=== PATIENT | female | born 1990 | race Caucasian/White ===

== ENCOUNTER 2020-01-27 13:43 | Outpatient (REF) | payer OTHER, SELFPAY | END 2020-01-27 13:44 | disposition home or self-care (01) | LOC: HO.HMGCLDS 13:43 | PROVIDERS: PCP Internal Medicine; Visit Provider Internal Medicine | DX: Z20.828 Contact with and (suspected) exposure to other viral communicable diseases (principal) | CPT/HCPCS: 87635 ==

== ENCOUNTER 2020-02-17 10:53 | Outpatient (REF) | payer OTHER, SELFPAY | END 2020-02-17 10:54 | disposition home or self-care (01) | LOC: HO.LAB 10:53 | PROVIDERS: Visit Provider Internal Medicine | DX: Z20.828 Contact with and (suspected) exposure to other viral communicable diseases (principal) | CPT/HCPCS: 87635 ==

== ENCOUNTER 2020-02-24 08:31 | Outpatient (REF) | payer OTHER, SELFPAY | END 2020-02-24 08:32 | disposition home or self-care (01) | LOC: HO.LAB 08:31 | PROVIDERS: Visit Provider Internal Medicine | DX: Z20.828 Contact with and (suspected) exposure to other viral communicable diseases (principal) | CPT/HCPCS: U0003 ==

== ENCOUNTER 2020-03-12 15:59 | Outpatient (REF) | payer OTHER, SELFPAY | END 2020-03-12 16:00 | disposition home or self-care (01) | LOC: HO.LAB 15:59 | PROVIDERS: Visit Provider Internal Medicine | DX: Z20.828 Contact with and (suspected) exposure to other viral communicable diseases (principal) | CPT/HCPCS: C9803; U0003 ==

== ENCOUNTER 2020-04-05 08:43 | Outpatient (REF) | payer OTHER, SELFPAY | END 2020-04-05 08:44 | disposition home or self-care (01) | LOC: HO.LAB 08:43 | PROVIDERS: PCP Internal Medicine; Visit Provider Internal Medicine | DX: Z20.828 Contact with and (suspected) exposure to other viral communicable diseases (principal) | CPT/HCPCS: C9803; U0003 ==

== ENCOUNTER 2020-04-15 10:48 | Outpatient (REF) | payer OTHER, SELFPAY ==
--- NOTE | 2020-04-15 10:53 | XR_ITS ---
EXAMINATION: XR FOOT, RIGHT CLINICAL INFORMATION: M79.671 - Pain in right foot COMPARISON: None TECHNIQUE: AP, lateral, and oblique views of the right foot. FINDINGS: There are postsurgical changes first metatarsal status post osteotomy and 2 screws. Hardware intact. No osteolysis or periostitis. There is no acute or healing fracture or dislocation. No joint narrowing or erosive change. XR/XR foot RT min 3V IMPRESSION: Postsurgical changes first metatarsal. No acute or healing fracture or destructive process. No arthropathy.
== END 2020-04-15 10:49 | disposition home or self-care (01) ==
LOC: HO.HMGCX 10:48
PROVIDERS: PCP Internal Medicine; Visit Provider Nurse Practitioner Family
DX: M79.671 Pain in right foot (principal)
CPT/HCPCS: 73630

== ENCOUNTER 2020-08-27 13:53 | Outpatient (REF) | payer OTHER, SELFPAY ==
[2020-08-27 17:10] LABS: MANUAL DIFF FLAG NO
[2020-08-27 17:16] LABS: Basophils Absolute Auto 0.1 X10*3/uL (0.0-0.2); Basophils Percent Auto 0.5 % (0-2); Eosinophils Absolute Auto 0.2 X10*3/uL (0.0-0.4); Eosinophils Percent Auto 1.6 % (0-4); Hematocrit 30.5 % (37-47); Hemoglobin 9.3 g/dl (12.0-16.0); Imm Gran Abs Auto 0.02 X10*3/uL (0.00-0.03); Imm Gran Pct Auto 0.2 % (0.0-0.4); Lymphocytes Absolute Auto 2.3 X10*3/uL (1.2-4.9); Lymphocytes Percent Auto 24.5 % (20-40); Mean Corpuscular HGB Conc 30.5 g/dl (31.0-35.0); Mean Corpuscular Hemoglobin 23.2 pg (27.0-33.0); Mean Corpuscular Volume 76.1 fL (80-98); Mean Platelet Volume 11.2 fL (9.4-12.3); Monocytes Absolute Auto 0.4 X10*3/uL (0.1-1.2); Monocytes Percent Auto 4.1 % (2-11); Neutrophils Absolute Auto 6.3 X10*3/uL (2.0-8.3); Neutrophils Percent Auto 69.1 % (45-73); Platelet Count 424 X10*3/uL (160-400); Red Blood Count 4.01 X10*6/uL (4.20-5.50); Red Cell Distribution Width 14.3 % (11.0-16.0); White Blood Count 9.2 X10*3/uL (4.8-10.8)
[2020-08-27 17:50] LABS: Vitamin D 25-OH Total 8.2 ng/mL (>30)
[2020-08-27 18:08] LABS: Folate 13.1 ng/mL (> or = 4.0); Vitamin B12 178 pg/mL (200-900)
== END 2020-08-27 13:54 | disposition home or self-care (01) ==
LOC: HO.HMGCLDS 13:53
PROVIDERS: PCP Internal Medicine; Visit Provider Internal Medicine
DX: E55.9 Vitamin D deficiency, unspecified (principal); Z86.2 Personal history of diseases of the blood and blood-forming organs and certain disorders involving the immune mechanism; Z86.39 Personal history of other endocrine, nutritional and metabolic disease
CPT/HCPCS: 36415; 82306; 82607; 82746; 85025

== ENCOUNTER 2021-01-04 08:34 | Outpatient (REF) | payer OTHER, SELFPAY ==
[2021-01-04 11:23] LABS: MANUAL DIFF FLAG NO
[2021-01-04 11:33] LABS: Basophils Percent Auto 0.5 % (0-2); Eosinophils Absolute Auto 0.3 X10*3/uL (0.0-0.4); Eosinophils Percent Auto 4.1 % (0-4); Hematocrit 32.7 % (37-47); Hemoglobin 10.4 g/dl (12.0-16.0); Imm Gran Abs Auto 0.02 X10*3/uL (0.00-0.03); Imm Gran Pct Auto 0.3 % (0.0-0.4); Lymphocytes Absolute Auto 1.9 X10*3/uL (1.2-4.9); Lymphocytes Percent Auto 28.5 % (20-40); Mean Corpuscular HGB Conc 31.8 g/dl (31.0-35.0); Mean Corpuscular Hemoglobin 25.1 pg (27.0-33.0); Mean Platelet Volume 11.2 fL (9.4-12.3); Monocytes Absolute Auto 0.5 X10*3/uL (0.1-1.2); Monocytes Percent Auto 7.3 % (2-11); Neutrophils Absolute Auto 3.9 X10*3/uL (2.0-8.3); Neutrophils Percent Auto 59.3 % (45-73); Platelet Count 356 X10*3/uL (160-400); Red Blood Count 4.14 X10*6/uL (4.20-5.50); Red Cell Distribution Width 14.3 % (11.0-16.0); White Blood Count 6.6 X10*3/uL (4.8-10.8)
[2021-01-04 11:56] LABS: Alanine Aminotransferase 12 U/L (0-31); Anion Gap 11 (12-20); Aspartate Amino Transferase 20 U/L (5-31); Blood Urea Nitrogen 13 mg/dL (9-16); Calcium 9.2 mg/dL (8.4-10.2); Carbon Dioxide 21 mmol/L (22-29); Chloride 110 mmol/L (96-108); Cholesterol 215 mg/dL; Estimated Glomerular Filt Rate > 60; Glucose Fasting 84 mg/dL (60-99); HDL Cholesterol 68 mg/dL; Iron 34 mcg/dL (30-160); LDL Cholesterol Calculated 121 mg/dl; Percent Iron Saturation 7 % (15-50); Potassium 4.4 mmol/L (3.3-5.1); Sodium 138 mmol/L (135-145); Total Iron Binding Capacity 476 mcg/dL (228-428); Triglycerides 133 mg/dL; Unsaturated Iron Binding 442 ug/dL
[2021-01-04 12:11] LABS: Folate 9.7 ng/mL (> or = 4.0); Vitamin B12 206 pg/mL (200-900)
[2021-01-04 12:20] LABS: TSH reflex Free T4 1.65 uIU/mL (0.32-4.0); Vitamin D 25-OH Total 52.7 ng/mL (>30)
== END 2021-01-04 08:35 | disposition home or self-care (01) ==
LOC: HO.HMGCLDS 08:34
PROVIDERS: PCP Internal Medicine; Visit Provider Internal Medicine
DX: Z00.00 Encounter for general adult medical examination without abnormal findings (principal); E55.9 Vitamin D deficiency, unspecified; D51.8 Other vitamin B12 deficiency anemias; D50.9 Iron deficiency anemia, unspecified; I10 Essential (primary) hypertension
CPT/HCPCS: 36415; 80048; 80061; 82306; 82607; 82746; 83540; 84443; 84450; 84460; 85025

== ENCOUNTER 2021-01-17 11:46 | Outpatient (REF) | payer OTHER, SELFPAY ==
--- NOTE | ~2021-01-17 | XR_ITS ---
EXAMINATION: XR CERVICAL SPINE CLINICAL INFORMATION: M54.2 - Cervicalgia COMPARISON: Radiographs cervical spine 11/26/2013. TECHNIQUE: 3 views of the cervical spine were obtained. FINDINGS: There is straightening of the cervical lordosis similar to remote prior exam 2013. Interval degenerative disc changes are present at C5-C6 with mild disc narrowing and associated anterior and posterior vertebral spurring. There is no endplate sclerosis or erosive change. No perched facet. No vertebral compression, spondylolisthesis, or prevertebral soft tissue swelling. The odontoid appears intact. XR/XR cervical spine 3V IMPRESSION: Degenerative disc changes C5-C6 with associated anterior and posterior vertebral body spurring.
== END 2021-01-17 11:47 | disposition home or self-care (01) ==
LOC: HO.HMGCX 11:46
PROVIDERS: PCP Internal Medicine; Visit Provider Physician Assistant Medical
DX: Z13.89 Encounter for screening for other disorder (principal)
CPT/HCPCS: 72040

== ENCOUNTER 2021-05-02 14:32 | Outpatient (REF) | payer OTHER, SELFPAY ==
--- NOTE | ~2021-05-02 | XR_ITS ---
EXAMINATION: XR CHEST CLINICAL INFORMATION: Cough COMPARISON: None TECHNIQUE: 2 views of the chest were obtained. FINDINGS: No significant abnormality is noted involving the heart, lungs, mediastinum, bony thorax or soft tissues. XR/XR chest 2V IMPRESSION: Unremarkable examination.
[2021-05-02 16:10] LABS: MANUAL DIFF FLAG NO
[2021-05-02 16:23] LABS: Basophils Absolute Auto 0.1 X10*3/uL (0.0-0.2); Basophils Percent Auto 0.6 % (0-2); Eosinophils Absolute Auto 0.3 X10*3/uL (0.0-0.4); Eosinophils Percent Auto 3.1 % (0-4); Hematocrit 35.3 % (37.0-47.0); Hemoglobin 10.8 g/dl (12.0-16.0); Imm Gran Abs Auto 0.02 X10*3/uL (0.00-0.03); Imm Gran Pct Auto 0.2 % (0.0-0.4); Lymphocytes Percent Auto 32.2 % (20-40); Mean Corpuscular HGB Conc 30.6 g/dl (31.0-35.0); Mean Corpuscular Hemoglobin 24.2 pg (27.0-33.0); Mean Corpuscular Volume 79.1 fL (80.0-98.0); Mean Platelet Volume 11.3 fL (9.4-12.3); Monocytes Absolute Auto 0.5 X10*3/uL (0.1-1.2); Monocytes Percent Auto 5.1 % (2-11); Neutrophils Absolute Auto 5.5 x10*3/uL (2.0-8.3); Neutrophils Percent Auto 58.8 % (45-73); Platelet Count 406 X10*3/uL (160-400); Red Blood Count 4.46 X10*6/uL (4.20-5.50); Red Cell Distribution Width 15.2 % (11.0-16.0); White Blood Count 9.4 X10*3/uL (4.8-10.8)
== END 2021-05-02 14:33 | disposition home or self-care (01) ==
LOC: HO.HMGCX 14:32
PROVIDERS: PCP Internal Medicine; Visit Provider Internal Medicine
DX: R05.9 Cough, unspecified (principal); R06.02 Shortness of breath; Z86.16 Personal history of COVID-19
CPT/HCPCS: 36415; 71046; 85025

== ENCOUNTER 2021-05-06 14:48 | Outpatient (REF) | payer OTHER, SELFPAY ==
[2021-05-06 15:38] LABS: Binax Now Covid-19 Ag Negative (Negative)
[2021-05-06 15:39] LABS: Binax Internal Control QC Valid; Binax Lot number: 9864
== END 2021-05-06 14:49 | disposition home or self-care (01) ==
LOC: HO.LAB 14:48
PROVIDERS: Visit Provider Internal Medicine
DX: Z20.822 Contact with and (suspected) exposure to COVID-19 (principal)
CPT/HCPCS: C9803

== ENCOUNTER 2021-08-19 12:22 | Outpatient (REF) | payer OTHER, SELFPAY ==
[2021-08-19 13:38] LABS: MANUAL DIFF FLAG NO
[2021-08-19 13:44] LABS: Basophils Absolute Auto 0.1 X10*3/uL (0.0-0.2); Basophils Percent Auto 0.7 % (0-2); Eosinophils Absolute Auto 0.2 X10*3/uL (0.0-0.4); Eosinophils Percent Auto 2.7 % (0-4); Hematocrit 34.1 % (37.0-47.0); Hemoglobin 10.7 g/dl (12.0-16.0); Imm Gran Abs Auto 0.02 X10*3/uL (0.00-0.03); Imm Gran Pct Auto 0.3 % (0.0-0.4); Lymphocytes Absolute Auto 2.5 X10*3/uL (1.2-4.9); Mean Corpuscular HGB Conc 31.4 g/dl (31.0-35.0); Mean Corpuscular Hemoglobin 23.9 pg (27.0-33.0); Mean Corpuscular Volume 76.3 fL (80.0-98.0); Mean Platelet Volume 11.2 fL (9.4-12.3); Monocytes Absolute Auto 0.5 X10*3/uL (0.1-1.2); Monocytes Percent Auto 6.4 % (2-11); Neutrophils Absolute Auto 3.9 x10*3/uL (2.0-8.3); Neutrophils Percent Auto 54.9 % (45-73); Platelet Count 421 X10*3/uL (160-400); Red Blood Count 4.47 X10*6/uL (4.20-5.50); Red Cell Distribution Width 14.5 % (11.0-16.0); White Blood Count 7.1 X10*3/uL (4.8-10.8)
[2021-08-19 14:18] LABS: Iron 71 mcg/dL (30-160); Percent Iron Saturation 14 % (15-50); Total Iron Binding Capacity 518 mcg/dL (228-428); Unsaturated Iron Binding 447 ug/dL
[2021-08-19 14:39] LABS: Folate 14.3 ng/mL (> or = 4.0); Vitamin B12 219 pg/mL (200-900)
== END 2021-08-19 12:23 | disposition home or self-care (01) ==
LOC: HO.HMGCLDS 12:22
PROVIDERS: PCP Internal Medicine; Visit Provider Internal Medicine
DX: D50.9 Iron deficiency anemia, unspecified (principal); D51.8 Other vitamin B12 deficiency anemias; E55.9 Vitamin D deficiency, unspecified
CPT/HCPCS: 36415; 82306; 82607; 82746; 83540; 85025

== ENCOUNTER 2021-08-19 14:06 | Outpatient (REF) | payer OTHER, SELFPAY ==
[2021-08-19 14:45] LABS: COVID-19 Test Negative (Negative)
== END 2021-08-19 14:07 | disposition home or self-care (01) ==
LOC: HO.LAB 14:06
PROVIDERS: Visit Provider Internal Medicine
DX: Z20.822 Contact with and (suspected) exposure to COVID-19 (principal)
CPT/HCPCS: 87635; C9803

== ENCOUNTER 2021-11-15 10:04 | Outpatient (REF) | payer OTHER, SELFPAY ==
[2021-11-15 10:44] LABS: Binax Internal Control QC Valid; Binax Now Covid-19 Ag Negative (Negative)
== END 2021-11-15 10:05 | disposition home or self-care (01) ==
LOC: HO.HMGCLDS 10:04
PROVIDERS: Visit Provider Physician Assistant
DX: Z20.822 Contact with and (suspected) exposure to COVID-19 (principal); B34.9 Viral infection, unspecified
CPT/HCPCS: 87811; C9803

== ENCOUNTER 2021-11-30 10:14 | Outpatient (REF) | payer OTHER, SELFPAY ==
[2021-11-30 10:58] LABS: COVID-19 Test Negative (Negative)
== END 2021-11-30 10:15 | disposition home or self-care (01) ==
LOC: HO.LAB 10:14
PROVIDERS: Visit Provider Internal Medicine
DX: Z20.822 Contact with and (suspected) exposure to COVID-19 (principal)
CPT/HCPCS: 87635; C9803

== ENCOUNTER 2021-12-02 11:37 | Outpatient (REF) | payer OTHER, SELFPAY ==
[2021-12-02 12:29] LABS: COVID-19 Test Negative (Negative)
== END 2021-12-02 11:38 | disposition home or self-care (01) ==
LOC: HO.LAB 11:37
PROVIDERS: Visit Provider Internal Medicine
DX: Z20.822 Contact with and (suspected) exposure to COVID-19 (principal)
CPT/HCPCS: 87635; C9803

== ENCOUNTER 2022-02-09 13:36 | Outpatient (REF) | payer OTHER, SELFPAY ==
--- NOTE | ~2022-02-09 | XR_ITS ---
EXAMINATION: XR SHOULDER, RIGHT CLINICAL INFORMATION: Right shoulder pain. COMPARISON: None TECHNIQUE: AP external rotation, Grashey, scapular Y, and axillary views of the right shoulder. FINDINGS: The bones and soft tissues are normal. No fracture. Glenohumeral and acromioclavicular alignment is anatomic with normal joint space. No abnormal soft tissue calcifications. XR/XR shoulder RT min 2V IMPRESSION: Unremarkable right shoulder.
== END 2022-02-09 13:37 | disposition home or self-care (01) ==
LOC: HO.HMGCX 13:36
PROVIDERS: PCP Internal Medicine
DX: M25.511 Pain in right shoulder (principal)
CPT/HCPCS: 73030

== ENCOUNTER → 2022-03-21 08:58 | Outpatient (BNVA) | payer OTHER, SELFPAY | PROVIDERS: PCP Internal Medicine; Visit Provider Physician Assistant | DX: M75.101 Unspecified rotator cuff tear or rupture of right shoulder, not specified as traumatic (principal) | CPT/HCPCS: 20610; 99202; J1040 ==

== ENCOUNTER 2022-04-05 15:26 | Outpatient (REF) | payer OTHER, SELFPAY ==
[2022-04-05 15:52] LABS: Binax Internal Control QC Valid; Binax Now Covid-19 Ag Negative (Negative)
[2022-04-05 17:54] LABS: Influenza A PCR POSITIVE (Negative); Influenza B PCR NEGATIVE (Negative); Resp Syncy Virus RNA Qual PCR NEGATIVE (Negative); SARS COV2 PCR INHOUSE NEGATIVE (Negative)
== END 2022-04-05 15:27 | disposition home or self-care (01) ==
LOC: HO.HMGCLDS 15:26
PROVIDERS: PCP Internal Medicine; Visit Provider Physician Assistant
DX: Z20.822 Contact with and (suspected) exposure to COVID-19 (principal)
CPT/HCPCS: 0241U; 87811; C9803

== ENCOUNTER 2022-07-11 08:56 | Outpatient (REF) | payer OTHER, SELFPAY ==
[2022-07-11 11:44] LABS: MANUAL DIFF FLAG NO
[2022-07-11 11:56] LABS: Basophils Percent Auto 0.5 % (0-2); Eosinophils Absolute Auto 0.1 X10*3/uL (0.0-0.4); Eosinophils Percent Auto 2.1 % (0-4); Hematocrit 32.4 % (37.0-47.0); Hemoglobin 9.7 g/dl (12.0-16.0); Imm Gran Abs Auto 0.02 X10*3/uL (0.00-0.03); Imm Gran Pct Auto 0.3 % (0.0-0.4); Lymphocytes Percent Auto 29.8 % (20-40); Mean Corpuscular HGB Conc 29.9 g/dl (31.0-35.0); Mean Corpuscular Hemoglobin 22.5 pg (27.0-33.0); Mean Platelet Volume 10.8 fL (9.4-12.3); Monocytes Absolute Auto 0.4 X10*3/uL (0.1-1.2); Monocytes Percent Auto 5.7 % (2-11); Neutrophils Absolute Auto 4.1 x10*3/uL (2.0-8.3); Neutrophils Percent Auto 61.6 % (45-73); Platelet Count 466 X10*3/uL (160-400); Red Blood Count 4.32 X10*6/uL (4.20-5.50); Red Cell Distribution Width 14.6 % (11.0-16.0); White Blood Count 6.6 X10*3/uL (4.8-10.8)
[2022-07-11 12:13] LABS: Cholesterol 198 mg/dL; Glucose Fasting 83 mg/dL (60-99); HDL Cholesterol 68 mg/dL; Iron 28 mcg/dL (30-160); LDL Cholesterol Calculated 103 mg/dl; Percent Iron Saturation 7 % (15-50); Total Iron Binding Capacity 423 mcg/dL (228-428); Triglycerides 135 mg/dL; Unsaturated Iron Binding 395 ug/dL
[2022-07-11 12:53] LABS: Folate 8.2 ng/mL (> or = 4.0); Vitamin B12 227 pg/mL (200-900); Vitamin D 25-OH Total 20.8 ng/mL (>30)
== END 2022-07-11 08:57 | disposition home or self-care (01) ==
LOC: HO.HMGCLDS 08:56
PROVIDERS: PCP Internal Medicine; Visit Provider Internal Medicine
DX: Z00.01 Encounter for general adult medical examination with abnormal findings (principal); D50.9 Iron deficiency anemia, unspecified; D51.8 Other vitamin B12 deficiency anemias; E55.9 Vitamin D deficiency, unspecified
CPT/HCPCS: 36415; 80061; 82306; 82607; 82746; 82947; 83540; 85025

== ENCOUNTER 2023-01-18 10:01 | Outpatient (AMB) | payer OTHER, SELFPAY ==
--- NOTE | 2023-01-18 10:28 | AM.OFFWIN_ITS ---
Intake Vital Signs 01/18/23 10:33 Weight 158 lb BP 122/70 Blood Pressure Location Rt brachial Position Sitting Pulse 80 Pulse Source Pulse Oximeter Temp 98.3 F Temp Source Temporal Artery Scan Pulse Oximetry (%) 99 Oxygen Delivery Method Room Air Intake Visit Reasons: EST/SOB Intake Note: Patient here for sore throat, cough and SOB/wheezing which has been present for 2 days, has a hx of asthma. she would also like a refill on her inhaler. Patient Tobacco Use Status: Never used Tobacco Allergies Seasonal Allergies Allergy (Intermediate, Verified 01/18/23 10:34) rhinorrhea Do you need a note to return to daycare/school/sports/work: Yes HPI HPI Comments History of Present Illness Details 32 yo female who presents for wheezing a nd shortness of breath. Patient states that for the past several days experiencing wheezing shortness of breath and productive cough. Denies fevers or chills. [facility] Medical History (Updated 01/18/23 @ 10:45 by SHAN Garza) SOB (shortness of breath) Annual visit for general adult medical examination with abnormal findings History of COVID-19 Migraine Allergic rhinitis due to allergen Environmental allergies Vitamin B12 deficiency (dietary) anemia Iron deficiency anemia Vitamin D deficiency Surgical History History of bunionectomy of right great toe Family History Paternal Grandmother Diabetes mellitus Social History Housing: Apartment Alcohol intake: never Patient Tobacco Use Status: Never used Tobacco e-Cigarette/Vaping Use: Never Used Second Hand Smoke Exposure: No service: No Current occupational status: employed Cognitive needs: No Hearing needs: No Vision needs: No Review of Systems Const All systems reviewed & are unremarkable except as noted in HPI and below Card Reports dyspnea Resp Reports change in phlegm color, Reports chest congestion, Reports cough and Reports dyspnea Physical Exam Vital Signs: Last Vital Signs Temp 98.3 F 01/18/23 10:33 Pulse 80 01/18/23 10:33 BP 122/70 01/18/23 10:33 Pulse Ox 99 01/18/23 10:33 Oxygen Delivery Method Room Air 09/28/23 10:33 Const General: cooperative, no acute distress and alert Orientation/consciousness: patient oriented x3 Limitations: no limitations HEENT Head: Yes normal to inspection Ears: hearing grossly normal bilaterally and external ears normal General nose exam: Normal external nose present Eyes General: appearance normal, both eyes and all related structures Neck Neck: Yes normal visual inspection Chest Chest palpation & inspection: normal inspection of the chest Resp Other: Rhonchi left lower base Effort & Inspection: normal respiratory effort, able to speak in complete sentences and no audible wheezes Cardio Rate: regular rate Rhythm: regular rhythm GI Inspection: Yes normal to inspection Palpation (GI): Soft to palpation and nontender Skin General skin exam: no rashes or lesions noted Neuro General: patient oriented x3 Psych Appearance: grossly normal Mental Status: mental status grossly normal Speech and movement: Normal speech and movement present Affect: normal affect Attitude: cooperative Thought process: Normal thought process present Thought content: Normal thought content present Assessment & Plan Assessment & Plan (1) Bronchitis: Code(s): J40 - Bronchitis, not specified as acute or chronic Plan: VSs. Exam notable for rhonchi in left lung base. Symptoms consistent bronchitis will prescribe a beautiful prednisone. Will also should chest x-ray to rule out pneumonia as well as COVID test. Chest x-ray shows no acute abnormalities cover test negative Discharge instructions, follow up and treatment are discussed with patient in my usual fashion. Alternatives in treatment are also discussed. The patient will return for worsening symptoms or as needed. Advised that any labs/imaging ordered will be followed up on and contact made if further treatment needed. Counseled that patient's condition may require further evaluation and/or treatment. Symptoms of concern for worsening disorder discussed in detail in my customary manner. Patient does verbalize understanding of the plan, there are no apparent barriers to communication. The patient is given the opportunity to ask questions and have them answered to his/her satisfaction Orders: Orders [facility] Covid-19 Ag Today R06.02 - Shortness of breath XR chest 2V Today R06.02 - Shortness of breath Medications: New albuterol sulfate 90 mcg/actuation 2 puffs inhalation Q6H PRN 6.7 grams 0RF shortness of breath or wheezing prednisone 40 mg (2 x 20 mg) PO DAILY 5 days 10 tabs 0RF Coding Level of Care Code Est Pt Level 3 (21117) Diagnoses Bronchitis J40
[2023-01-18 10:33] VITALS: BP 122/70; PULSE 80; TEMP 36.8; O2SAT 99
== END 2023-01-18 10:53 | disposition home or self-care (01) ==
PROVIDERS: PCP Internal Medicine; Visit Provider Physician Assistant
DX: J40 Bronchitis, not specified as acute or chronic (principal)
CPT/HCPCS: 99213

== ENCOUNTER 2023-01-18 10:52 | Outpatient (REF) | payer OTHER, SELFPAY ==
--- NOTE | ~2023-01-18 | XR_ITS ---
EXAMINATION: XR CHEST CLINICAL INFORMATION: Shortness of breath COMPARISON: 05/02/2021 TECHNIQUE: 2 views of the chest were obtained. FINDINGS: No acute finding. Some right basilar markings are noted not felt to be increased. Likely chronic. The cardiac silhouette is within normal limits. The hilar regions do not appear pathologically enlarged There is no effusion. Scoliosis once again noted convex left apex at T6. XR/XR chest 2V IMPRESSION: No acute finding.
[2023-01-18 11:23] LABS: Binax Now Covid-19 Ag Negative (Negative); Binax Performed by: HO.BONILM
[2023-01-18 11:24] LABS: Binax Internal Control QC Valid
== END 2023-01-18 10:53 | disposition home or self-care (01) ==
LOC: HO.HMGCX 10:52
PROVIDERS: PCP Physician Assistant; Visit Provider Physician Assistant
DX: Z20.822 Contact with and (suspected) exposure to COVID-19 (principal); R06.02 Shortness of breath
CPT/HCPCS: 71046; 87811; C9803

== ENCOUNTER 2023-01-29 13:14 | Outpatient (AMB) | payer OTHER, SELFPAY ==
--- NOTE | 2023-01-29 14:43 | MHC.OFFWIV ---
Intake Vital Signs 01/29/23 14:45 Height 5 ft 2 in Weight 158 lb BMI 28.9 BP 128/76 Blood Pressure Location Lt brachial Position Sitting Pulse 83 Pulse Source Pulse Oximeter Pulse Oximetry (%) 100 Oxygen Delivery Method Room Air Intake Visit Reasons: EST/pink eye/[phone] Intake Note: Patient here for possible pink eye. Patient Tobacco Use Status: Never used Tobacco Allergies Seasonal Allergies Allergy (Intermediate, Verified 01/29/23 15:23) rhinorrhea Medication List - Last Reconciled 01/29/23 by Shan Knox MD albuterol sulfate 90 mcg/actuation 2 puffs inhalation Q6H PRN albuterol sulfate 90 mcg/actuation (Ventolin HFA) 2 puffs inhalation Q6H PRN erythromycin 0.5 inches ophthalmic (eye) TID naproxen 250 mg PO BID PRN prednisone 40 mg (2 x 20 mg) PO DAILY 5 days HPI EST/pink eye/[phone] HPI Details 32-year-old female presents to the office for a sick visit. Patient complains of redness in her eye since this morning. Does not wear contact lenses. Reports symptoms of itching and tearing. [facility] Medical History (Updated 01/18/23 @ 10:45 by SHAN Garza) SOB (shortness of breath) Annual visit for general adult medical examination with abnormal findings History of COVID-19 Migraine Allergic rhinitis due to allergen Environmental allergies Vitamin B12 deficiency (dietary) anemia Iron deficiency anemia Vitamin D deficiency Surgical History History of bunionectomy of right great toe Family History Paternal Grandmother Diabetes mellitus Social History Housing: Apartment Alcohol intake: never Patient Tobacco Use Status: Never used Tobacco e-Cigarette/Vaping Use: Never Used Second Hand Smoke Exposure: No service: No Current occupational status: employed Cognitive needs: No Hearing needs: No Vision needs: No Physical Exam Vital Signs: Last Vital Signs Pulse 83 01/29/23 14:45 BP 128/76 01/29/23 14:45 Pulse Ox 100 01/29/23 14:45 Oxygen Delivery Method Room Air 10/09/23 14:45 BMI result Body Mass Index 28.9 Eyes Other: Left eye: Bulbar conjunctiva is congested. Corneas clear. Anterior chambers clear. Assessment & Plan Assessment & Plan (1) Conjunctivitis: Code(s): H10.9 - Unspecified conjunctivitis Qualifiers: Conjunctivitis type: acute Acute conjunctivitis type: bacterial Laterality: left Qualified Code(s): H10.32 - Unspecified acute conjunctivitis, left eye Plan: Erythromycin ointment called in. If symptoms do not improve to follow-up here. Medications: New erythromycin 0.5 inches ophthalmic (eye) TID 1 g 0RF Coding Level of Care Code Est Pt Level 3 (29001) Diagnoses Acute bacterial conjunctivitis of left eye H10.32 Conjunctivitis type: acute Acute conjunctivitis type: bacterial Laterality: left
[2023-01-29 14:45] VITALS: BP 128/76; PULSE 83; O2SAT 100; BMI 28.9
== END 2023-01-29 15:59 | disposition home or self-care (01) ==
PROVIDERS: PCP Internal Medicine; Visit Provider Internal Medicine
DX: H10.32 Unspecified acute conjunctivitis, left eye (principal)
CPT/HCPCS: 99213

== ENCOUNTER 2023-12-06 10:29 | Outpatient (AMB) | payer OTHER, SELFPAY ==
--- NOTE | 2023-12-06 10:31 | AM.OFFWIN_ITS ---
Intake Vital Signs 12/06/23 10:32 Height 5 ft 2 in Weight 154 lb BMI 28.2 BP 122/76 Blood Pressure Location Rt brachial Position Sitting Pulse 77 Pulse Source Pulse Oximeter Pulse Oximetry (%) 98 Oxygen Delivery Method Room Air Intake Visit Reasons: EP- LT eye redness, oozing out of eye, pink eye? Intake Note: Patient here for possible pink eye of left eye. she states it just started today and has discharge and feels sore. Patient Tobacco Use Status: Never used Tobacco Allergies Seasonal Allergies Allergy (Intermediate, Verified 12/06/23 10:33) rhinorrhea Do you need a note to return to daycare/school/sports/work: No HPI EP- LT eye redness, oozing out of eye, pink eye? HPI Details This note is constructed using voice recognition software. While every effort has been made to ensure accuracy, professional development instructor errors may have been included. The patient is a 33 year old female who presents to the clinic today with left eye since this morning. She notes that the left eye she woke up with was itchy, with yellow thick discharge. She has clean the eye. The discharge seems to come back. She has had no known exposures to anybody with conjunctivitis. She does have children. She is not a contact wearer. She denies fever, chills, cough, shortness of breath. [facility] Medical History (Updated 01/18/23 @ 10:45 by SHAN Garza) SOB (shortness of breath) Annual visit for general adult medical examination with abnormal findings History of COVID-19 Migraine Allergic rhinitis due to allergen Environmental allergies Vitamin B12 deficiency (dietary) anemia Iron deficiency anemia Vitamin D deficiency Surgical History History of bunionectomy of right great toe Family History Paternal Grandmother Diabetes mellitus Social History Housing: Apartment Alcohol intake: never Patient Tobacco Use Status: Never used Tobacco e-Cigarette/Vaping Use: Never Used Second Hand Smoke Exposure: No service: No Current occupational status: employed Cognitive needs: No Hearing needs: No Vision needs: No Review of Systems Const All systems reviewed & are unremarkable except as noted in HPI and below Physical Exam Vital Signs: Last Vital Signs Pulse 77 12/06/23 10:32 BP 122/76 12/06/23 10:32 Pulse Ox 98 12/06/23 10:32 Oxygen Delivery Method Room Air 12/06/23 10:32 BMI result Body Mass Index 28.2 Const General: cooperative, healthy appearing, comfortable, no acute distress and alert Orientation/consciousness: patient oriented x3 Limitations: no limitations HEENT Head: Yes normal to inspection and Yes normocephalic Ears: hearing grossly normal bilaterally General nose exam: Normal external nose present Face and sinus: Yes normal facial exam and Yes sinuses nontender Mouth: Normal oral and palatal mucosa present and tongue normal Teeth and gingiva: dentition normal Throat: Yes posterior oropharynx normal Eyes Visual Sellers: normal visual sellers by confrontation Alignment and Position: alignment normal Periorbital: periorbital findings normal Eyelids: Yes eyelids normal Conjunctivae: conjunctival abnormal left conjunctival injection diffuse and discharge purulent Pupils: Equal, round and reactive pupils present Skin General skin exam: no rashes or lesions noted, elasticity normal and turgor normal Neuro General: patient oriented x3 Cranial nerves: Yes Equal, round and reactive pupils present Psych Appearance: grossly normal Mental Status: mental status grossly normal Speech and movement: Normal speech and movement present Affect: normal affect Assessment & Plan Assessment & Plan (1) Conjunctivitis: Code(s): H10.9 - Unspecified conjunctivitis Qualifiers: Conjunctivitis type: acute Acute conjunctivitis type: bacterial Laterality: left Qualified Code(s): H10.32 - Unspecified acute conjunctivitis, left eye Plan: ERythromycin ointment ordered. Advised patient to avoid scratching both eyes as she can cross contaminate to her other eye. Advised patient to monitor her children for signs of conjunctivitis as it is entirely likely that they may catch it. Advised patient to remain out of work for today while she initiates treatment for this. Follow up as needed with worsening or failure to resolve. Advised Ophthalmology should she have any issues with vision develop. Plan See above for full details and plan. Medications: New erythromycin apply inside left eye lid 0.5 inches ophthalmic (eye) TID 7 days 3.5 grams 0RF Coding Level of Care Code Est Pt Level 3 (99493) Diagnoses Acute bacterial conjunctivitis of left eye H10.32 Conjunctivitis type: acute Acute conjunctivitis type: bacterial Laterality: left
[2023-12-06 10:32] VITALS: BP 122/76; PULSE 77; O2SAT 98; BMI 28.2
== END 2023-12-06 10:50 | disposition home or self-care (01) ==
PROVIDERS: PCP Internal Medicine; Visit Provider Registered Nurse
DX: H10.32 Unspecified acute conjunctivitis, left eye (principal)
CPT/HCPCS: 99213

== ENCOUNTER 2024-03-26 08:53 | Outpatient (REF) | payer OTHER, SELFPAY ==
[2024-03-26 09:06] LABS: MANUAL DIFF FLAG NO
[2024-03-26 10:50] LABS: Basophils Absolute Auto 0.1 X10*3/uL (0.0-0.2); Basophils Percent Auto 0.7 % (0-2); Eosinophils Absolute Auto 0.2 X10*3/uL (0.0-0.4); Eosinophils Percent Auto 2.2 % (0-4); Hematocrit 31.6 % (37.0-47.0); Hemoglobin 9.8 g/dl (12.0-16.0); Imm Gran Abs Auto 0.03 X10*3/uL (0.00-0.03); Imm Gran Pct Auto 0.4 % (0.0-0.4); Lymphocytes Absolute Auto 1.9 X10*3/uL (1.2-4.9); Lymphocytes Percent Auto 24.3 % (20-40); Mean Corpuscular Hemoglobin 22.7 pg (27.0-33.0); Mean Corpuscular Volume 73.3 fL (80.0-98.0); Mean Platelet Volume 10.7 fL (9.4-12.3); Monocytes Absolute Auto 0.5 X10*3/uL (0.1-1.2); Monocytes Percent Auto 6.9 % (2-11); Neutrophils Percent Auto 65.5 % (45-73); Platelet Count 460 X10*3/uL (160-400); Red Blood Count 4.31 X10*6/uL (4.20-5.50); Red Cell Distribution Width 15.6 % (11.0-16.0); White Blood Count 7.7 X10*3/uL (4.8-10.8)
[2024-03-26 11:32] LABS: Alanine Aminotransferase 11 U/L (0-31); Aspartate Amino Transferase 24 U/L (5-31); Cholesterol 217 mg/dL (<200); HDL Cholesterol 82 mg/dL (>40); Iron 38 mcg/dL (30-160); LDL Cholesterol Calculated 112 mg/dL (<100); Percent Iron Saturation 8 % (15-50); Total Iron Binding Capacity 448 mcg/dL (228-428); Triglycerides 117 mg/dL (<150); Unsaturated Iron Binding 410 ug/dL
[2024-03-26 11:36] LABS: TSH reflex Free T4 2.38 uIU/mL (0.32-4.0); Vitamin D 25-OH Total 14.4 ng/mL (>30)
[2024-03-26 11:45] LABS: Folate 11.6 ng/mL (> or = 4.0); Vitamin B12 199 pg/mL (200-900)
--- OUTSIDE RECORDS SUMMARY | 2024-04-01 16:37 | XMS_ITS | Data Portability ---
Author Organization [place] - [facility] Address [address] [place] [id number] Care Team Providers Care Mold Injector Name Role Phone ALEXUS EDMONDS Primary Care Provider [phone] Assessment Encounter Date Assessment Date Assessment LastModified by Organization Details LastModified Time 03/24/2018 03/24/2018 .Overview/Histor y: Pt is 28 y/o F with pmhx of Asthma, Seasonal Allergies new to [facility] who we are called to evaluate for URI sxs x 5 days. Pt c/o chest tightness, dry cough, difficulty breathing, ST, nasal congestion with green discharge x 5 days. Pt was prescribed an albuterol inhaler and montelukast last year but does not currently have an inhaler and is not taking any of her asthma meds. She is a non-smoker. 1 of her children was sick with walking pneumonia last week. Denies fever, chills, malaise, VILLALBA, dizziness, CP, n/v. Exam: Vitals obtained, reviewed, and without evidence of fever, tachycardia, tachypnea or acute hypoxia on room air. Arrived to find a well appearing, non-toxic young female in no acute respiratory distress. Appears to not feel well. AAOX4. Speech clear. Voice is hoarse. No stridor. OP clear with MMM. No erythema, exudates, tonsilar hypertrophy. TM's intact w/o erythema or bulging. Nares patent. Lung exam: mild inspiratory wheezing, diminished air movement. No tachypnea or dyspnea. RRR. MOEx4. DDx considered, but not limited to: Viral URI, bronchitis, asthma exacerbation, pneumonia, sinusitis Work up/Results: Albuterol Neb administered on scene 40 mg Prednisone Plan/Discussion: Pt presents with viral URI sxs x 5 days with acute exacerbation of asthma. Afebrile with normal VS. Non-toxic. In no respiratory distress. Lung exam reveals slight wheezing and diminished air flow due to bronchospasm c/w asthma exacerbation from viral URI. Low suspicion for pneumonia. Do not feel imaging is indicated at this time. Sxs most consistetn with viral illness. Administered Albuterol Neb with improvement in pt's sxs. Lungs CTAB post neb. 40 mg pred given. Pt case and plan of care discussed with Dr. Hancock via phone. Discussed med administration of albuterol neb and prednisone on scene as well as plan for prescriptions to be called in to [facility] pharmacy for Albuterol ProAir Inhaler, Flonase and Prednisone 40 mg x 3 days. Recommend rest, hydration, use of inhaler q4-6 hours for RAD/bronchospasm, flonase BID for congestion/sinusit is as well as daily allergy med (pt has Zyrtec), nasal saline rinses/neti pot, humidifier at night, hot steam showers. All questions answered. Pt expressed verbal understanding and agreement with this plan of care and discharge instructions. Time On Scene with Patient: 00:33:49 Not available 03/24/2018 13:35:48 05/14/2018 05/14/2018 Overview/History : 28-year-old healthy female, who is known to a [facility] was evaluated with complaints of a cough, sinus/nasal congestion and intermittent fever starting 4 days ago. She denies any neck pain, chest pain, shortness of breath, back pain, dysuria, hematuria, or arthralgias or any rashes. She does complain of generalized muscle aches. Exam: Ill-appearing. Warm to touch. Sinus and nasal congestion on exam. Mild erythema to the posterior pharynx. No trismus. Lungs clear to auscultation. Febrile at 100.6 degrees Fahrenheit. O2 sat 99%. Heart rate 100 BPM. DDx considered, but not limited to: Viral bronchitis. Influenza. Pneumonia. Pneumonia unlikely given clear lung sounds and O2 sat 99% Work up/Results: Rapid influenza positive for influenza a. Plan/Discussion: Patient unlikely to benefit from Tamiflu given symptoms started 4 days ago. She has not taken any Tylenol or Motrin. She was given 600mg of ibuprofen and 975 mg of acetaminophen. The patient will be prescribed ibuprofen 600 mg t.i.d. She was advised to take this for myalgias and fever. She was told to alternate between the Tylenol and Motrin. I discussed increasing her fluid intake. I also discussed ways to decrease transmission of influenza. She is to be reevaluated if she develops shortness of breath, chest pain, becomes lightheaded or develops any new or worrisome symptoms. In order to obtain further information and compare any laboratory results/values, I have accessed patient records on the [employer]. This information was pertinent in my medical decision making today. Time On Scene with Patient: 00:27:48 [email or web address] Not available 05/14/2018 22:44:08 07/21/2018 07/21/2018 Overview/History : 28-year-old female, who is known to myself and [facility] from a previous visit, was evaluated for complaints of a sore throat that started 2 days ago. Two of the patient's children were just diagnosed with strep throat. She complains of pain with swallowing and also enlarged anterior cervical lymph nodes. She denies any fever, chills, sweats, arthralgias, myalgias or any other complaints. She denies being . Exam: Pleasant female in NAD. Lungs clear to auscultation bilaterally. Heart rate regular with no obvious murmurs. Oropharynx with erythema and 2+ tonsillar enlargement. No exudate. Uvula midline. No trismus. No nuchal rigidity or meningismus signs. DDx considered, but not limited to: Peritonsillar abscess - no clinical signs of [employer]. Viral illness Strep pharyngitis- likely given exam and exposure. Work up/Results: Rapid strep test deferred Plan/Discussion: Patient will be treated for what is likely strep pharyngitis given exposure to her 2 children and clinical exam. She was given a dose of cephalexin 500 mg and a prescription for 500 mg b.i.d. for 10 days was sent to her pharmacy. She was instructed to use a probiotic while taking the antibiotic. The patient stated that she has had a yeast infections in the past related to antibiotic use. A one time dose of Diflucan was called in to the patient's pharmacy. She was instructed to use ibuprofen 600 mg 3 times a day as needed for discomfort and also to gargle with warm salty water. She will be reevaluated if she develops increasing pain, fever or any other concerning symptoms. In order to obtain further information and compare any laboratory results/values, I have accessed old patient records. This information was pertinent in my medical decision making today. Time On Scene with Patient: 00:12:48 [email or web address] Not available 07/21/2018 11:50:34 03/22/2019 03/22/2019 Overview/History : 29 yo female kown to but new to this provider who presents with complain of sinus pain and pressure X2 weeks and left ear pain X3 days. In addition patient reports nasal congestion with very small amount of greenish nasal discharge; reports her left ear feels blocked; ear pain is 7/10; states she has mild 4/10 headache which she feels like caused by her sinuses. Patient did not check her temperature, but states she feels warm and run down . Patient states she took some tylenol but it did not provide much relief. Comorbidities: Asthma, migraines Exam: pleasant young female who appears somewhat tired but otherwise well, no acute distress, non-toxic appearance; alert and oriented X4; ambulates independently without difficulty Mucous membranes are pink and moist without lesions; Oropharynx without erythema or exudate. Nasal mucosa is pink and moist; nasal passages are patent bilaterally; tenderness on palpation noted over maxillary sinuses bilaterally; ear canals are clear without erythema or discharge bilaterally; right TM is pearly freed, non-bulging, non-erythematous; Left TM is erythematous and bulging with air-fluid levels noted. No cervical lymphadenopathy Heart sounds are regular rate and rhythm; no audible murmurs, rubs, or gallops No signs of respiratory distress. Lungs are clear to auscultation in all fileds DDx considered, but not limited to: Bacterial sinusitis - very likely dx based on clinical presentation and duration of symptoms Otitis media - very likely dx; possible secondary to sinus infection URI Influenza - unlikely allergic rhinitis - unlikely Work up/Results: none Plan/Discussion: - based on clinical presentation and duration of symptoms bacterial sinusitis and otitis media are the most likely dx ar this time - start Augmentin X10d; advised on side effects and advised OTC probiotics - provided prescription for one dose of fluconazole as patient has history of candidiasis with abx treatment; advised on side effects and advised to take if develops symptoms of candidiasis - advised to increase PO fluids to stay hydrated and rest to facilitated recovery - follow up with PCP as needed within 3-5 days or sooner if symptoms worsen or do not improve - advised when to seek immediate medical attention/911/ED - patient expressed understanding and agreed to tx plan In order to obtain further information and compare any laboratory results/values, I have accessed old patient records. This information was pertinent in my medical decision making today. Time On Scene with Patient: 00:17:44 [email or web address] Not available 03/23/2019 04:45:05 Plan of Treatment Reminders Order Date Submit Date Provider Last Modified By Organization Details Last Modified Time Details Appointments None recorded. Lab rapid flu (A+B) 2018 019 [facility], [address] [place] [address], [id number], 9 21:41:30 Referral None recorded. Procedures None recorded. Surgeries None recorded. Imaging None recorded. Medication Orders prednisone 10 mg tablet 2017 018 [id number], [address] [place], [address], 9 21:24:15 albuterol sulfate concentrat e 2.5 mg/0.5 mL solution for nebulizati on 2017 018 [email or web address] [id number], [address] [place], [address], 8 10:44:46 acetaminop hen 325 mg tablet 2018 019 [email or web address] Not available 9 08:06:15 ibuprofen 200 mg tablet 2018 019 [email or web address] Not available 9 08:06:15 Motrin IB 200 mg tablet 2018 019 INTERFACE [id number], [address] [place], [address], 9 21:45:34 cephalexin 500 mg capsule 2018 019 [id number], [address] [place], [address], 9 11:27:36 Diflucan 150 mg tablet 2018 019 INTERFACE [id number], [address] [place], [address], 9 11:29:08 Keflex 500 mg capsule 2018 019 INTERFACE [id number], [address] [place], [address], 9 11:29:08 Augmentin 875 mg-125 mg tablet 2018 019 INTERFACE [id number], [address] [place], [address], 9 17:24:47 fluconazol e 150 mg tablet 2018 019 INTERFACE [id number], [address] [place], [address], 9 17:24:47 Patient TargetsNo targets recorded. Patient Instructions Encounter Date Encounter Id Patient Instructions Last Modified By Organization Details Last Modified Time 03/24/2018 [id number] --You were seen today for cough, ST, hoarse voice, chest tightness, nasal discharge --Your symptoms are consistent with a viral illness/upper respiratory infection that is causing an exacerbation (worsening) of your asthma. --I have given you an Albuterol Nebulizer Treatment. This should help open up and relax your airways and help you breathe better and lessen the chest tightness. --I have called in a prescription for an Albuterol Inhaler. Take 1-2 puffs every 4-6 hours for cough/wheezing/juan st tightness. --I have also given you a dose of Prednisone which is a steroid (powerful anti-inflammatory) . I have called in a prescription for an additional 3 days of this medication (40 mg daily). This will help calm all the inflammation in your lungs. --Flonase: this will help with the nasal congestion. use 1 spray in each nostril twice daily. --I also recommend you take your Zyrtec once daily while sick. This is an anti-histamine and will help dry up some of the secretions you have. --Drink plenty of fluids, rest. Viral Illness Discharge Instructions BASIC INFORMATION A viral infection can range anywhere between a common cold and influenza. Most viruses will respond to a combination of time and supportive care. Viruses are eliminated by the bodies immune system and do not respond to antibiotics. Viruses can cause many different symptoms including runny stuffy nose, sore throat, headache, fever, body aches, cough, nausea, vomiting,diarrhea. Most of the viral illnesses are spread by hand to face contact, and the rest are spread through sneezing and coughing which releases virus into the air. Over the counter medications can help to relieve annoying symptoms. Occasionally having a virus may cause a secondary bacterial infection such as ear infections, pneumonia, sinusitis. INSTRUCTIONS Keeping your body as healthy as possible will help to limit your illness. Get plenty of rest Drink lots of fluids (water, herbal tea, gatorade) Reduce your risk of getting or giving a cold by avoiding touching your face with your hands. When you cough and sneeze cover your mouth/nose by placing your elbow or upper arm over the area rather than using your hand. Use a teaspoon of honey(avoid organic honey in infants and small children < 1 year) at bedtime to soothe your throat and ease cough. Sleep with head of bed elevated to promote drainage of secretions. Hot showers and humidifiers can help to loosen secretions. Tylenol over the counter can be helpful for aches and fever. Suck on hard, sugar-free candy during the day to keep the throat moist. MEDICATIONS Over the counter remedies are not recommended for young children, but can help relieve symptoms temporarily in adults. In general it is better to take only the medication you need rather than using combination products that contain ingredients that are unnecessary and may cause side effects. 1. Antihistamines (Benadryl, Chlor-Trimeton, Zyrtec, Claritin, Amna) reduce secretions, but can cause drowsiness and sedation, do not drink alcohol or drive while taking these medications. 2. Decongestants (Phenylephrine, Sudafed) can help to shrink swollen nasal passages and dry secretions, but may cause palpitations, anxiety,and are not safe for people with High blood pressure or heart arrhythmias. 3. Topical Decongestants (Afrin/Lucius-synephr ine) can be very helpful for acute relief of nasal swelling and runny nose, HOWEVER they should not be used regularly for more than 3 days as they will cause rebound congestion if over-used. 4. Cough aids generally contain DM( Dextromethorphan) which is a cough suppressant and Guaifenesin which is an expectorant. While the DM portion can be helpful for suppressing the cough, guaifenesin, particularly as dosed in Mucinex like products has minimal effect and may cause nausea. Viral symptoms usually last between 5-10 days, it is not uncommon to have a mild cough for up to 6 weeks afterward. If you have been diagnosed with influenza you should minimize your contact with others. You may return to work/school after 24 hours of being fever free without medication (usually 5-10 days). FOLLOW UP if your symptoms are not improving in 7-10 days If you have severe ear pain, sinus pain, cough productive large amounts of mucus, wheezing. You have underlying medical problems that may become worse as a result of your viral illness (asthma, diabetes, COPD) and need to follow up to ensure you are improving. SEEK CARE IMMEDIATELY IF 1 Severe headache unresponsive to Tylenol or severe neck stiffness 2. Confusion 3. Severe chest pain 4. Difficulty breathing 5. Persistent vomiting 6. Cough productive large amounts of sputum or blood 7. Inability to keep liquids down 8. Fever unresponsive to medication over 102 If you develop any new or worsening symptoms and need after hours care, please go to nearest ER and/or call 911. If you have additional concerns or develop a change in your condition between 8am-10pm, please call [facility] at [phone] to help navigate your care. [email or web address] Not available 03/24/2018 10:50:27 05/14/2018 [id number] influenza (flu): care instructions Not available 05/14/2018 21:39:07 07/21/2018 [id number] strep throat: ca re instructions Not available 07/21/2018 11:30:18 03/22/2019 [id number] Thank you for yo ur visit with [facility] today. We cannot always find the exact cause of your symptoms during your initial visit. Please follow up with your primary care provider or specialist {{within 12-24 hours within 24-48 hours within 2-3 days as needed*}} to be rechecked or seek medical attention if your symptoms do not go away or get worse. If you develop any new or worsening symptoms and need after hours care, please go to nearest ER and/or call 911. If you have additional concerns or develop a change in your condition between 8am-10pm, please call [facility] at [phone] to help navigate your care. [email or web address] Not available 03/22/2019 17:25:05 Reason for Referral None Reported. Results Created Date Observation Date Name Description Value Unit Range Abnormal Flag Note LastModifiedBy Organization Detail LastModifiedTime 05/14/2018 rapid flu (A+B) Flu A positi ve Not Available [facility] [address] [place], [address], 05/14/2018 21:34:38 05/14/2018 rapid flu (A+B) Flu B negati ve Not Available [facility] [address] [place], [address], 05/14/2018 21:34:38 Result Notes None recorded. Procedures Surgical History Date Name Laterality Status Provider Name and Address Organization Details Recorded Time 8 Nebulizer treatment - DH completed SHAN BRANNON [address] [place], [address], [place] [facility] 03/24/2018 10:59:58 Imaging Results None recorded. Procedure Notes None recorded. Medical Equipment None Reported. Allergies No known drug allergies Medications Name Sig Start Date Stop Date Status Note LastModified by Organization Details LastModified Time terconazole 0.4 % vaginal cream active Not Available Not Available Not Available acetaminoph en 325 mg tablet 975mg PO administe red on scene. Time administe red: 4 2018 active Not Available Not Available Not Avai lable prednisone 10 mg tablet 40 mg PO administe red on scene. Time administe red: 10:20 05/14 completed Not Available Not Available Not Available cetirizine 10 mg tablet active Not Available Not Available Not Available fluconazole 150 mg tablet Take 1 tablet as needed by oral route. active Not Available Not Available No t Available valacyclovi r 1 gram tablet active Not Available Not Available Not Available metronidazo le 0.75 % (37.5 mg/5 gram) vaginal gel active Not Available Not Available Not Available prednisone 20 mg tablet 07/21 completed Not Available Not Available Not Available triamcinolo ne acetonide 0.1 % topical cream active Not Available Not Available Not Available cephalexin 500 mg capsule Take 1 capsule every 6 hours by oral route. active Not Available Not Available No t Available ferrous sulfate 325 mg (65 mg iron) tablet active Not Available Not Available Not Available clotrimazol e-betametha sone 1 %-0.05 % topical cream active Not Available Not Available Not Available ibuprofen 200 mg tablet 600 mg PO administe red on scene. Time administe red: 2145 2018 active Not Available Not Available Not Avai lable hydrocortis one 2.5 % topical cream active Not Available Not Available Not Available montelukast 10 mg tablet active Not Available Not Available Not Available cyanocobala min (vit B-12) 1,000 mcg sublingual tablet active Not Available Not Available Not Available azelastine 137 mcg (0.1 %) nasal spray active Not Available Not Available Not Available albuterol sulfate HFA 90 mcg/actuati on aerosol inhaler active Not Available Not Available Not Available ketoconazol e 2 % topical cream active Not Available Not Available Not Available fluticasone propionate 50 mcg/actuati on nasal spray,suspe nsion active Not Available Not Available Not Available loratadine 10 mg tablet active Not Available Not Available Not Available naproxen 500 mg tablet active Not Available Not Available Not Available amoxicillin 875 mg-potassiu m clavulanate 125 mg tablet Take 1 tablet twice a day by oral route for 10 days. active Not Available Not Available No t Available NuvaRing 0.12 mg-0.015 mg/24 hr vaginal active Not Available Not Available Not Available azithromyci n 500 mg tablet 03/24 completed Not Available Not Available Not Available Clotrimazol e 3 Day 2 % vaginal cream Insert 1 applicato rful every day by vaginal route as directed for 3 days. 2018 active Not Available Not Available Not Avai lable albuterol sulfate concentrate 2.5 mg/0.5 mL solution for nebulizatio n 2.5 mg solution nebulized on scene. Time administe red: 10:15 2017 active Not Available Not Available Not Avai lable cholecalcif aneesh (vitamin D3) 50 mcg (2,000 unit) tablet active Not Available Not Available Not Available Vitamin D3 50 mcg (2,000 unit) capsule active Not Available Not Available Not Available Qvar RediHaler 80 mcg/actuati on HFA breath activated aerosol active Not Available Not Available Not Available Vitals Date Recorded Oxygen saturation Oxygen saturation in Arterial blood by Pulse oximetry Heart rate Body temperature Respiratory rate Systolic blood pressure Diastolic blood pressure Provider Name and Address Organization Details Last Updated DateTime 9 100 % 100 % 68 /min 99.7 [degF] 18 /min 124 mm[Hg] 64 mm[Hg] Not Available [facility] 9 17:14:25 Date Recorded Body temperature Heart rate Oxygen saturation Oxygen saturation in Arterial blood by Pulse oximetry Respiratory rate Systolic blood pressure Diastolic blood pressure Provider Name and Address Organization Details Last Updated DateTime 8 99.2 [degF] 80 /min 99 % 99 % 16 /min 120 mm[Hg] 90 mm[Hg] Not Available [facility] 8 10:18:12 Date Recorded Heart rate Body temperature Respiratory rate Oxygen saturation Oxygen saturation in Arterial blood by Pulse oximetry Systolic blood pressure Diastolic blood pressure Provider Name and Address Organization Details Last Updated DateTime 9 100 /min 100.6 [degF] 16 /min 99 % 99 % 110 mm[Hg] 66 mm[Hg] Not Available [facility] 9 21:26:05 Date Recorded Body temperature Oxygen saturation Oxygen saturation in Arterial blood by Pulse oximetry Heart rate Respiratory rate Systolic blood pressure Diastolic blood pressure Provider Name and Address Organization Details Last Updated DateTime 9 98.6 [degF] 99 % 99 % 75 /min 15 /min 112 mm[Hg] 60 mm[Hg] Not Available [facility] 9 11:24:19 Social History Question Answer Notes LastModified by Organizat ion Details LastModified Time Tobacco Smoking Status Never Smoker SHAN BRANNON [address], [place], [address], [place] - [facility] 03/24/2018 10:01:29 What Was The Date Of Your Most Recent Tobacco Screening? 05/14/2018 Information not available 11/14/2018 Sex: Unknown Functional Status None recorded. Mental Status None recorded. Family History Nothing Reported. Medical History Condition Response Asthma Y Gynecological HistoryNo gynecological history recorded. Obstetrics History GPAL:G 0 P 0 0 0 0 Past Encounters Encounter ID Performer Location Encounter Start Date Encounter Closed Date Diagnosis/Indication Diagnosis SNOMED-CT Code Diagnosis ICD10 Code [id number] SHAN BRANNON [facility] [address] [place] [address] 03/24/2018 09:37:53 03/26/2018 10:35:15 Exacerbation of intermittent asthma 835935216 J45.21 Dry cough 86387440 R05 Wheezing 50442043 R06.2 Viral sinusitis 87678950 9 B34.9 Viral uppe r respiratory tract infection 733435081 J06.9 [id number] TEDDY KENDALL NP [facility] [address] [place] [address] 05/14/2018 21:19:34 05/18/2018 17:45:03 Cough 74600827 R05 Influenza caused by Influenza A virus 041374757 J09.X2 [id number] TEDDY KENDALL NP [facility] [address] [place] [address] 07/21/2018 11:19:51 07/23/2018 16:32:34 Acute pharyngitis 396333735 J02.9 [id number] SHAN RAMON [facility] [address] [place] [address] 03/22/2019 17:13:02 03/25/2019 12:13:34 Sinusitis 86479221 J32.9 Otitis media 48074997 H6 6.92 Health Concerns Section Related Observation LastModified by Organization Detai ls LastModified Time None Recorded Concern Status LastModified by Organization Details LastModified Time None Recorded Advance Directives Directive None Recorded Payers Encounter Date Sequence Insurance Name Policy Number Policy Fajardo Covered Member ID Fajardo Member ID Guarantor Name 03/24/2018 2 [facility] (O) MARLENA Reed [id number] Марина Mendietaillo 03/24/2018 1 [facility] CLARITY (O) MARLENA Parish Reed [id number] Марина Reed 05/14/2018 1 [facility] (O) MARLENA Parish Reed [id number] Марина Reed 07/21/2018 1 [facility] (O) MARLENA Parish Reed [id number] Марина Reed 03/22/2019 1 [facility] (O) MARLENA Mendietaillo [id number] Марина Reed Notes Date Note Type Note Provider Name and Address Organization Details Recorded Time 03/24/2018 text/html Pt is 28 y/o F with pmhx of Asthma, Seasonal Allergies new to [facility] who we are called to evaluate for URI sxs x 5 days. Pt c/o chest tightness, dry cough, difficulty breathing, ST, nasal congestion with green discharge x 5 days. Pt was prescribed an albuterol inhaler and montelukast last year but does not currently have an inhaler and is not taking any of her asthma meds. She is a non-smoker. 1 of her children was sick with walking pneumonia last week. Denies fever, chills, malaise, VILLALBA, dizziness, CP, n/v. SHAN BRANNON [address], [place], [address], [place] [facility] 03/24/2018 13:35:57 05/14/2018 text/html 28-year-old female who was noted this [facility] was evaluated with complaints of a cough, sinus congestion and myalgias, starting 4 days ago. The patient stated that I feel like I am dying . 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 She denies any neck pain, shortness of breath, chest pain, abdominal pain, dysuria, hematuria, vomiting, diarrhea or any rashes. TEDDY KENDALL NP [address], [place], [address], [place] [facility] 05/14/2018 22:44:24 07/21/2018 text/html 28-year-old female, who is known to myself and [facility] from from a previous visit, was evaluated for complaints of sore throat starting yesterday. 2 of the patient's 3 children have been diagnosed with strep pharyngitis. The patient denies any fever, chills, sweats, headache, neck pain, chest pain, shortness of breath, cough, nausea, vomiting, arthralgias, myalgias or any other complaints. She does have some mild discomfort to the anterior cervical lymph nodes. TEDDY KENDALL NP [address], [place], [address], [place] [facility] 07/21/2018 11:51:01 03/22/2019 text/html Mrs. Reed is a 29 yo female kown to but new to this provider who presents with complain of sinus pain and pressure X2 weeks and left ear pain X3 days. In addition patient reports nasal congestion with very small amount of greenish nasal discharge; reports her left ear feels blocked; ear pain is 7/10; states she has mild 4/10 headache which she feels like caused by her sinuses. Patient did not check her temperature, but states she feels warm and run down . Patient states she took some tylenol but it did not provide much relief. SHAN RAMON [address], [place], [address], [place] [facility] 03/23/2019 04:45:11 OBGyn Episode No OBEpisode recorded.
== END 2024-03-26 08:54 | disposition home or self-care (01) ==
LOC: HO.LAB 08:53
PROVIDERS: PCP Internal Medicine; Visit Provider Internal Medicine
DX: Z00.01 Encounter for general adult medical examination with abnormal findings (principal); D51.8 Other vitamin B12 deficiency anemias; D50.9 Iron deficiency anemia, unspecified; E55.9 Vitamin D deficiency, unspecified
CPT/HCPCS: 36415; 80061; 82306; 82607; 82746; 83540; 84443; 84450; 84460; 85025

== ENCOUNTER 2024-03-31 10:13 | Outpatient (AMB) | payer OTHER, SELFPAY ==
[2024-03-31 11:20] VITALS: BP 110/70; PULSE 93; O2SAT 100; BMI 29.3
--- NOTE | 2024-03-31 11:20 | MHC.PC.OV ---
Vital Signs 03/31/24 11:20 Height 5 ft 2 in Weight 160 lb BMI 29.3 BP 110/70 Blood Pressure Location Lt brachial Position Sitting Pulse 93 Pulse Source Pulse Oximeter Pulse Oximetry (%) 100 Oxygen Delivery Method Room Air Intake Visit Reasons: PE- NEEDS PHQ-9 Is last menstrual period known: Yes Last menstrual period: 03/01/24 Allergies Seasonal Allergies Allergy (Intermediate, Verified 03/31/24 11:40) rhinorrhea Medication List - Last Reconciled 03/31/24 by Clara Vail MD albuterol sulfate 90 mcg/actuation (Ventolin HFA) 2 puffs inhalation Q6H PRN cetirizine (All Day Allergy (cetirizine)) 10 mg PO DAILY PRN etonogestrel-ethinyl estradiol 0.12-0.015 mg/24 hr vag rings vaginal naproxen 250 mg PO BID PRN Tobacco use date assessed: 03/31/24 Dental Screening Dental Screen Date: 03/31/24 Did you have a dental visit in the last 12 months?: Yes Did you have a dental problem in the last 6 months where you did not have access to dental care?: No Was dental information given to patient?: Patient has dentist HPI PE- NEEDS PHQ-9 HPI Details - The patient is a 34-year-old female here today for physical exam. - she has anemia , which she attributes to her heavy menstrual bleeding. . Lasts at least 7 days and with the 1st 3 days being very heavy, requiring a pad changed every 2-3 hours. Has been complaining of fatigue, dyspnea on exertion, and cold intolerance. - has restless leg syndrome and frequent bruising, likely due to her anemia. - There is no known history of uterine fibroids, and no recent ultrasound has been performed to investigate potential causes of heavy bleeding. - She has been treated with iron supplementation, which causes constipation, and has had vitamin B12 injections previously. -she has history of migraines, No current use of sumatriptan or other triptans for migraines, managed with low-dose naproxen - History of allergic rhinitis, takes Zyrtec as needed. [facility] Medical History (Updated 04/06/24 @ 20:33 by Clara Vail MD) SOB (shortness of breath) Annual visit for general adult medical examination with abnormal findings History of COVID-19 Migraine Allergic rhinitis due to allergen Environmental allergies Vitamin B12 deficiency (dietary) anemia Iron deficiency anemia Vitamin D deficiency Surgical History History of bunionectomy of right great toe Family History Paternal Grandmother Diabetes mellitus Social History Housing: Apartment Alcohol intake: never Patient Tobacco Use Status: Never used Tobacco e-Cigarette/Vaping Use: Never Used Second Hand Smoke Exposure: No service: No Current occupational status: employed Cognitive needs: No Hearing needs: No Vision needs: No Female Reproductive History Menstrual Date of last menstrual period: 03/01/24 Questionnaire PHQ-9 Over the last 2 weeks, how often have you been bothered by any of the following problems? 1. Little interest or pleasure in doing things: not at all 2. Feeling down, depressed, or hopeless: not at all 3. Trouble falling or staying asleep, or sleeping too much: more than half the days 4. Feeling tired or having little energy: more than half the days 5. Poor appetite or overeating: not at all 6. Feeling bad about yourself - or that you are a failure or have let yourself or your family down: not at all 7. Trouble concentrating on things, such as reading the newspaper or watching television: not at all 8. Moving or speaking so slowly that other people could have noticed. Or the opposite - being so fidgety or restless that you have been moving around a lot more than usual: not at all 9. Thoughts that you would be better off or of hurting yourself in some way: not at all Total score: 4 Depression Screening Interpretation: Negative Depression Screening Done: Yes 94583 - PHQ-9 Billing: Yes Source: Developed by Drs. Catracho Vines, Dana Heath, Darwin Jean-Baptiste and colleagues, with an educational nikki from [employer]. Thrive Questionnaire Date Thrive assessed: 03/31/24 I am a: Patient What is your living situation today?: I have a steady place to live Within the past 12 months, did the food you bought not last and you didn't have the money to get more?: Never true Within the past 12 months, did you worry whether your food would run out before you got money to buy more?: Never true Do you have trouble paying for medicines?: No Do you have trouble getting transportation to medical appointments?: No Do you have trouble paying your heating and electricity bill?: No Do you have trouble taking care of your child, family member or friend?: No Do you have trouble with day-to-day activities such as bathing, preparing meals, shopping, managing finances, etc.?: No Are you currently unemployed and looking for a job?: No Are you interested in more education?: No Please select the resources that you would like help with: None Currently or been in a relationship where the following occur: No concerns reported THRIVE Score: 0 AUDIT C Alcohol Use Questionnaire (AUDIT-C) 1. How often do you have a drink containing alcohol?: Never Total Score: 0 ISSA-7 AMB Questionnaire ISSA-7 Date ISSA - 7 assessed: 03/31/24 Feeling nervous, anxious, or on edge: 0 = Not at all Not being able to stop or control worryin = Not at all Worrying too much about different things: 0 = Not at all Trouble relaxin = More than half the days Being so restless that it is hard to sit still: 0 = Not at all Becoming easily annoyed or irritable: 0 = Not at all Feeling afraid as if something awful might happen: 0 = Not at all Total ISSA-7 score (0-4 normal; 5-9 mild; 10-14 moderate; 15-21 severe): 2 Source: Developed by Drs. Catracho Vines, aDna Heath, Darwin Jean-Baptiste and colleagues, with an educational nikki from [employer]. ISSA-7 Assessment Billing ISSA-7 Assessment Tool: ISSA-7 Assessment 86953 Review of Systems Const Reports as per HPI Eyes Reports no additional complaints ENT Reports no additional complaints Card Denies chest pain, Denies syncope, Denies rapid heart rate, Denies irregular heart rhythm, Reports lightheadedness (positional) and Reports dyspnea on exertion Resp Reports dyspnea on exertion GI Reports no additional complaints, Denies abdominal pain and Reports nausea Details: heavy menstrual bleeding , despite Nuvaring , last 4 days, 8 pads a day, dysmenorrhea, last pap 2022 was normal Musc Reports no additional complaints Skin/Breast Denies breast pain, Denies breast mass and Denies rash Neuro Denies syncope Psych Reports no additional complaints Endo Reports no additional complaints Nawaf/Lymph Details: frequent nosebleeds Reports easy bruising Aller/Immun Reports no additional complaints Physical exam (Primary Care) Vital Signs: Last Vital Signs Pulse 93 03/31/24 11:20 BP 110/70 03/31/24 11:20 Pulse Ox 100 03/31/24 11:20 Oxygen Delivery Method Room Air 03/31/24 11:20 BMI result Body Mass Index 29.3 Tobacco/Smoking Status: Tobacco use Status Tobacco use date assessed 03/31/24 03/31/24 11:26 Patient Tobacco Use Status Never used Tobacco 03/31/24 11:22 e-Cigarette/Vaping Use Never Used 03/31/24 11:22 PHQ-9: PHQ-9 Score PHQ-9: Total score 4 04/06/24 19:32 Depression Screening Interpretation: Negative Thrive Assessment: Date of Thrive Assessment Date Thrive assessed 03/31/24 03/31/24 11:26 Currently or been in a relationship where the following occur: No concerns reported Const Other: Alert oriented x3, no acute acute distress ambulatory normal gait Orientation/consciousness: patient oriented x3 HENMT Ears: external ears normal, TM's normal bilaterally and EAC's normal General nose exam: Normal external nose present Face and sinus: Yes face symmetric Mouth: Normal oral and palatal mucosa present, oropharynx normal and moist mucous membranes Eyes Other: Slightly pale palpebral conjunctiva, pupilsequally reactive to light and accommodation, extraocular muscles full and intact Neck Neck: Yes full ROM, Yes no lymphadenopathy and Yes supple Chest Breast/axilla inspection: normal inspection of the breasts Breast/axilla palpation: normal palpation of the breasts Resp Auscultation: clear to auscultation bilaterally Cardio Other: regular rate and rhythm Heart sounds: S1 normal heart sound present and S2 normal heart sound present GI Palpation (GI): Soft to palpation, nontender, no guarding and no masses General: Yes no CVA tenderness and Yes deferred Back/Spine/Pelvis Back: no CVA tenderness and No back tenderness Skin General skin exam: no rashes or lesions noted Neuro General: patient oriented x3, gait normal, moves all extremities, Normal light touch and pain sensation, no focal motor deficits and CN's II-XI intact bilaterally Cranial nerves: Yes CN's II-XII intact bilaterally Cognition (Neuro): normal cognition Motor exam (neuro): 5/5 motor strength present throughout Extrem General: Yes full ROM, Yes no joint enlargement, Yes no clubbing, cyanosis or edema and Yes normal gait Psych Appearance: grossly normal and well kempt Mental Status: mental status grossly normal Speech and movement: Normal speech and movement present Affect: normal affect Results Reviewed Results Reviewed: Name: Марина Reed Age/Sex: 34/F : 1990 Unit#: [id number] Attend Dr: Clara Vail MD Re03/26/24 Status: DEP [facility] Disch: SPEC : [id number] PHILIP: 03/26/24 STATUS: COMP REQ : [id number] RECD: 03/26/[address]: Clara Vail MD COMP: 03/26/24 ENTERED: 03/26/24 [facility] DR: ORDERED: CBC Auto Diff Test Result Flag Reference WBC 7.7 4.8-10.8 X10*3/uL RBC 4.31 4.20-5.50 X10*6/uL HGB 9.8 L 12.0-16.0 g/dl HCT 31.6 L 37.0-47.0 % MCV 73.3 L 80.0-98.0 fL MCH 22.7 L 27.0-33.0 pg MCHC 31.0 31.0-35.0 g/dl RDW 15.6 11.0-16.0 % PLT 460 H 160-400 X10*3/uL MPV 10.7 9.4-12.3 fL Neut Pct Auto 65.5 45-73 % ImGran Pct Auto 0.4 0.0-0.4 % Lymp Pct Auto 24.3 20-40 % Jerome Pct Auto 6.9 2-11 % Eos Pct Auto 2.2 0-4 % Baso Pct Auto 0.7 0-2 % NRBC Pct Auto 0.0 0.0-0.2 /100WBC ANC Neut Abs # 5.0 2.0-8.3 x10*3/uL ImGran Abs Auto 0.03 0.00-0.03 X10*3/uL Lymph Abs Auto 1.9 1.2-4.9 X10*3/uL Jerome Abs Auto 0.5 0.1-1.2 X10*3/uL Eos Abs Auto 0.2 0.0-0.4 X10*3/uL Baso Abs Auto 0.1 0.0-0.2 X10*3/uL NRBC Abs Auto 0.000 0.0-0.012 X10*3/uL Name: Марина Reed Age/Sex: 34/F : 1990 Unit#: [id number] Attend Dr: Clara Vail MD Re03/26/24 Status: DEP [facility]F [facility] Disch: SPEC : [id number] PHILIP: 03/26/24 STATUS: COMP REQ : [id number] RECD: 03/26/[address]: Clara Vail MD COMP: 03/26/246 ENTERED: 03/26/[address]: ORDERED: IRON PROF, AST, ALT, Lipid Panel, Vitamin D 25-OH, TSH Rflx Test Result Flag Reference Iron 38 30-160 mcg/dL TIBC 448 H 228-428 mcg/dL Saturation 8 L 15-50 % UIBC 410 ug/dL AST (GOT) 24 5-31 U/L ALT (GPT) 11 0-31 U/L Triglyceride 117 <150 mg/dL Desirable Triglyceride: less than 150 mg/dL Borderline High Triglyceride 150-199 mg/dL High Triglyceride: 200-499 mg/dL Very High Triglyceride: greater than or equal to 5OO mg/dL Cholesterol 217 H <200 mg/dL Desirable Cholesterol: less than 200 mg/dL Borderline High Cholesterol: 200-239 mg/dL High Cholesterol: greater than 239 mg/dL LDL Calculated 112 H <100 mg/dL Desirable LDL: less than 100 mg/dL Near Optimal/Above Optimal LDL: 110-129 mg/dL Borderline High LDL: 130-159 mg/dL High LDL: 160-189 mg/dL Very High LDL: greater than or equal to 190 mg/dL HDL 82 >40 mg/dL Desirable HDL: greater than 40 mg/dL Note: This HDL assay may give artificially low results in patients with liver disease. Vit D 25-OH Tot 14.4 L >30 ng/mL Health Based Reference Values* < 20 ng/mL Deficient 20-30 ng/mL Insufficient > 30 ng/mL Sufficient *Sallie COLIN. N Engl J Med. 2007;357:266-280 Care must be taken in interpreting Vitamin D results from different laboratories and methodologies. Published data demonstrated that results from patients undergoing hemodialysis may show a negative bias when tested with various automated 25-OH vitamin D assays when compared to LC-MS/MS. When testing samples from patients whose predominant form of Vitamin D is Vitamin D2, such as patients receiving Vitamin D2 supplementation, results that are subtherapeutic should be confirmed with another method such as LC-MS/MS. TSH 2.38 0.32-4.0 uIU/mL Coding Level of Care Code Est Pt Prev Care 18-39y(10188) Diagnoses Annual visit for general adult medical examination with abnormal findings Z00. Vitamin D deficiency E55.9 Iron deficiency anemia due to chronic blood loss D50.0 Iron deficiency anemia type: chronic blood loss Vitamin B12 deficiency (dietary) anemia D51.8 Allergic rhinitis, unspecified seasonality, unspecified trigger J30.9 Allergic rhinitis trigger: unspecified Allergic rhinitis seasonality: unspecified Migraine with aura and without status migrainosus, not intractable G43.109 Migraine type: migraine (< 15 days per month) with aura Status migrainosus presence: without status migrainosus Intractability: not intractable Frequent nosebleeds R04.0 Chronic fatigue R53.82 Fatigue type: chronic, unspecified RLS (restless legs syndrome) G25.81 Dyspnea on exertion R06.09 Additional Codes PHQ-9 - 44434 - PHQ-9 Billing: Yes ([id number]) ISSA-7 Assessment Billing - ISSA-7 Assessment Tool: ISSA-7 Assessment 32281 ([id number]) Assessment & Plan Assessment & Plan (1) Annual visit for general adult medical examination with abnormal findings: Code(s): Z00.01 - Encounter for general adult medical examination with abnormal findings Category: Medical (2) Vitamin D deficiency: Code(s): E55.9 - Vitamin D deficiency, unspecified Category: Medical (3) Iron deficiency anemia: Code(s): D50.9 - Iron deficiency anemia, unspecified Category: Medical Qualifiers: Iron deficiency anemia type: chronic blood loss Qualified Code(s): D50.0 - Iron deficiency anemia secondary to blood loss (chronic) (4) Vitamin B12 deficiency (dietary) anemia: Code(s): D51.8 - Other vitamin B12 deficiency anemias Category: Medical (5) Allergic rhinitis due to allergen: Code(s): J30.9 - Allergic rhinitis, unspecified Category: Medical Qualifiers: Allergic rhinitis trigger: unspecified Allergic rhinitis seasonality: unspecified Qualified Code(s): J30.9 - Allergic rhinitis, unspecified (6) Migraine: Code(s): G43.909 - Migraine, unspecified, not intractable, without status migrainosus Category: Medical Qualifiers: Migraine type: migraine (< 15 days per month) with aura Status migrainosus presence: without status migrainosus Intractability: not intractable Qualified Code(s): G43.109 - Migraine with aura, not intractable, without status migrainosus (7) Frequent nosebleeds: Code(s): R04.0 - Epistaxis Category: Medical (8) Fatigue: Code(s): R53.83 - Other fatigue Category: Medical Qualifiers: Fatigue type: chronic, unspecified Qualified Code(s): R53.82 - Chronic fatigue, unspecified (9) RLS (restless legs syndrome): Code(s): G25.81 - Restless legs syndrome Category: Medical (10) Dyspnea on exertion: Code(s): R06.09 - Other forms of dyspnea Category: Medical Plan - Heavy Menstrual Bleeding: Recommend follow-up with [facility] for further evaluation, such as fibroids - Iron Deficiency Anemia: Continue iron supplementation with consideration for adjusting dose due to constipation. - - - Hematology referral suggested for further evaluation. -prescription sent for vitamin B12 supplementation once a month and prescription also sent for vitamin-D 350 1000 units per capsule to take once a week for the next 3 months. - Restless Leg Syndrome: Monitor symptoms; improvement expected with anemia treatment. - Allergic Rhinitis: Continue managing with Zyrtec as needed. - Migraine History: No current acute management plan needed , will continue to monitor -reminded to get her flu vaccine, COVID booster, up-to-date with her Tdap Patient was informed and verbally consented to the use of an ambient scribe for clinic note documentation during this visit. Orders: Orders von Willebrand Comp. Profile 03/31/24 D50.9 - Iron deficiency anemia, unspecified, D51.8 - Other vitamin B12 deficiency anemias, E55.9 - Vitamin D deficiency, unspecified, G25.81 - Restless legs syndrome, G43.909 - Migraine, unspecified, not intractable, without status migrainosus, J30.9 - Allergic rhinitis, unspecified, R04.0 - Epistaxis, R06.09 - Other forms of dyspnea, R53.83 - Other fatigue, Z00.01 - Encounter for general adult medical examination with abnormal findings
== END 2024-03-31 12:01 | disposition home or self-care (01) ==
PROVIDERS: PCP Internal Medicine; Visit Provider Internal Medicine
DX: Z00.00 Encounter for general adult medical examination without abnormal findings (principal); E55.9 Vitamin D deficiency, unspecified; D50.0 Iron deficiency anemia secondary to blood loss (chronic); D51.8 Other vitamin B12 deficiency anemias; J30.9 Allergic rhinitis, unspecified; G43.109 Migraine with aura, not intractable, without status migrainosus; R04.0 Epistaxis; R53.82 Chronic fatigue, unspecified; G25.81 Restless legs syndrome; R06.09 Other forms of dyspnea

== ENCOUNTER → 2024-03-31 10:13 | Outpatient (BNVA) | payer OTHER, SELFPAY | PROVIDERS: PCP Internal Medicine; Visit Provider Internal Medicine | DX: Z00.01 Encounter for general adult medical examination with abnormal findings (principal); E55.9 Vitamin D deficiency, unspecified; D50.0 Iron deficiency anemia secondary to blood loss (chronic); D51.8 Other vitamin B12 deficiency anemias; J30.9 Allergic rhinitis, unspecified; G43.109 Migraine with aura, not intractable, without status migrainosus; R04.0 Epistaxis; R53.82 Chronic fatigue, unspecified; R06.09 Other forms of dyspnea; G25.81 Restless legs syndrome | CPT/HCPCS: 96127; 99395 ==

== ENCOUNTER 2024-04-08 13:26 | Outpatient (REF) | payer OTHER, SELFPAY ==
[2024-04-15 11:43] LABS: Factor VIII Activity Clotting 238 % normal (50-180); PTT, Activated 23 sec (23-32); Ristocetin Cofactor 156 % normal (42-200)
== END 2024-04-08 13:27 | disposition home or self-care (01) ==
LOC: HO.LAB 13:26
PROVIDERS: PCP Internal Medicine; Visit Provider Internal Medicine
DX: Z00.01 Encounter for general adult medical examination with abnormal findings (principal); G43.909 Migraine, unspecified, not intractable, without status migrainosus; J30.9 Allergic rhinitis, unspecified; D51.8 Other vitamin B12 deficiency anemias; D50.9 Iron deficiency anemia, unspecified; E55.9 Vitamin D deficiency, unspecified; R04.0 Epistaxis; R53.83 Other fatigue; G25.81 Restless legs syndrome; R06.09 Other forms of dyspnea
CPT/HCPCS: 36415; 85240; 85245; 85246; 85247; 85730; 96372; J3420

== ENCOUNTER 2024-04-08 13:26 | Outpatient (AMB) | payer OTHER, SELFPAY ==
--- OUTSIDE RECORDS SUMMARY | 2024-04-08 13:29 | XMS_ITS | Data Portability ---
Author Organization [place] - [facility] Address [address] [place] [address] Care Team Providers Care Bioinformatics Specialist Name Role Phone ALEXUS EDMONDS Primary Care Provider Assessment Encounter Date Assessment Date Assessment LastModified by Organization Details LastModified Time 03/24/2018 03/24/2018 .Overview/Histor y: Pt is 28 y/o F with pmhx of Asthma, Seasonal Allergies new to [facility] who we are called to evaluate for [...] for prescriptions to be called in to [facility] pharmacy for Albuterol ProAir [...] instructions. Time On Scene with Patient: 00:33:49 [email or web address] Not available 03/24/2018 13:35:48 05/14/2018 05/14/2018 Overview/History [...] I have accessed patient records on the [employer]. This information was pertinent in [...] Peritonsillar abscess - no clinical signs of REGISTERED PHYSICAL THERAPIST. Viral illness Strep pharyngitis- likely given exam [...] recorded. Lab rapid flu (A+B) 2018 019 [email or web address], [address] [place] [address], [address], 9 21:41:30 Referral None recorded. Procedures None recorded. Surgeries None recorded. Imaging None recorded. Medication Orders prednisone 10 mg tablet 2017 018 [id number], [address] [place], [address], 9 21:24:15 albuterol sulfate concentrat e 2.5 mg/0.5 mL solution for nebulizati on 2017 018 [email or web address] 9 [facility], [address] [place], [address], 8 10:44:46 acetaminop hen 325 mg tablet 2018 019 [email or web address] Not available 9 08:06:15 ibuprofen 200 mg tablet 2018 019 [email or web address] Not available 9 08:06:15 Motrin IB 200 mg tablet 2018 019 INTERFACE [facility], [address] [place], [address], 9 21:45:34 cephalexin 500 mg capsule 2018 019 [facility], [address] [place], [address], 9 11:27:36 Diflucan 150 mg tablet 2018 019 INTERFACE [facility], [address] [place], [address], 9 11:29:08 Keflex 500 mg capsule 2018 019 INTERFACE [facility], [address] [place], [address], 9 11:29:08 Augmentin 875 mg-125 mg tablet 2018 019 INTERFACE [facility], [address] [place], [address], 9 17:24:47 fluconazol e 150 mg tablet 2018 019 INTERFACE [facility], [address] [place], [address], 9 17:24:47 Patient TargetsNo targets recorded. Patient Instructions Encounter Date Encounter Id Patient Instructions Last Modified By Organization Details Last Modified Time 03/24/2018 [id number] --You were seen today for cough, ST, [...] in your condition between 8am-10pm, [facility] at [phone] to help navigate your care. [email or web address] Not available 03/24/2018 10:50:27 05/14/2018 [id number] influenza (flu): care instructions Not available 05/14/2018 21:39:07 07/21/2018 [id number] strep throat: ca re instructions Not available 07/21/2018 11:30:18 03/22/2019 [id number] Thank you for yo ur visit with [facility] today. We cannot always find the exact cause of your symptoms during your initial visit. Please follow up with your primary care provider or specialist to be rechecked or seek medical attention if your symptoms do not go away or get worse. If you develop any new or worsening symptoms and need after hours care, please go to nearest ER and/or call 911. If you have additional concerns or develop a change in your condition between 8am-10pm, please call [facility] at [phone] to help navigate your care. [email or web address] Not available 03/22/2019 17:25:05 Reason for Referral None Reported. Results Created Date Observation Date Name Description Value Unit Range Abnormal Flag Note LastModifiedBy Organization Detail LastModifiedTime 05/14/2018 rapid flu (A+B) Flu A positi ve Not Available [facility] [address] [place], [address], 05/14/2018 21:34:38 05/14/2018 rapid flu (A+B) Flu B negati ve Not Available [facility] [address] [place], [address], 05/14/2018 21:34:38 Result Notes None recorded. Procedures Surgical History Date Name Laterality Status Provider Name and Address Organization Details Recorded Time 8 Nebulizer treatment - DH completed SHAN BRANNON [address] [place], [address], [place] [facility] 03/24/2018 10:59:58 Imaging Results None recorded. Procedure Notes None recorded. Medical Equipment None Reported. Allergies No known drug allergies Medications Name Sig Start Date Stop Date Status Note LastModified by Organization Details LastModified Time terconazole 0.4 % vaginal cream active Not Available Not Available Not Available acetaminoph en 325 mg tablet 975mg PO administe red on scene. Time administe red: 2144 2018 active Not Available Not Available Not [...] /min 124 mm[Hg] 64 mm[Hg] Not Available [facility] 9 17:14:25 Date Recorded Body temperature Heart rate Oxygen saturation Oxygen saturation in Arterial blood by Pulse oximetry Respiratory rate Systolic blood pressure Diastolic blood pressure Provider Name and Address Organization Details Last Updated DateTime 8 99.2 [degF] 80 /min 99 % 99 % 16 /min 120 mm[Hg] 90 mm[Hg] Not Available [facility] 8 10:18:12 Date Recorded Heart rate Body temperature Respiratory rate Oxygen saturation Oxygen saturation in Arterial blood by Pulse oximetry Systolic blood pressure Diastolic blood pressure Provider Name and Address Organization Details Last Updated DateTime 9 100 /min 100.6 [degF] 16 /min 99 % 99 % 110 mm[Hg] 66 mm[Hg] Not Available [facility] 9 21:26:05 Date Recorded Body temperature Oxygen saturation Oxygen saturation in Arterial blood by Pulse oximetry Heart rate Respiratory rate Systolic blood pressure Diastolic blood pressure Provider Name and Address Organization Details Last Updated DateTime 9 98.6 [degF] 99 % 99 % 75 /min 15 /min 112 mm[Hg] 60 mm[Hg] Not Available [facility] 9 11:24:19 Social History Question Answer Notes LastModified by Organizat ion Details LastModified Time Tobacco Smoking Status Never Smoker SHNA BRANNON [address], [place], [address], [place] [facility] 03/24/2018 10:01:29 What Was [...] Diagnosis/Indication Diagnosis SNOMED-CT Code Diagnosis ICD10 Code [id number] SHAN BRANNON [facility] [address] [place] [address] 03/24/2018 09:37:53 03/26/2018 10:35:15 Exacerbation of intermittent asthma 909206974 J45.21 Dry cough 75450526 R05 Wheezing 97723933 R06.2 Viral sinusitis 33334833 9 B34.9 Viral uppe r respiratory tract infection 337637808 J06.9 [id number] TEDDY KENDALL FASHION ARTIST [facility] [address] [place] [address] 05/14/2018 21:19:34 05/18/2018 17:45:03 Cough 27414508 R05 Influenza caused by Influenza A virus 434475723 J09.X2 [id number] TEDDY KENDALL, FASHION ARTIST [facility] [address] [place] [address] 07/21/2018 11:19:51 07/23/2018 16:32:34 Acute pharyngitis 489629679 J02.9 [id number] SHAN RAMON [facility] [address] [place] [address] 03/22/2019 17:13:02 03/25/2019 12:13:34 Sinusitis 43468212 J32.9 Otitis media 39466312 H6 6.92 Health Concerns Section Related Observation LastModified by Organization Detai ls LastModified Time None Recorded Concern Status LastModified by Organization Details LastModified Time None Recorded Advance Directives Directive None Recorded Payers Encounter Date Sequence Insurance Name Policy Number Policy Fajardo Covered Member ID Fajardo Member ID Guarantor Name 03/24/2018 2 [facility] [employer] ([facility] MARLENA Reed [id number] Марина Reed 03/24/2018 1 [facility] CLARITY (HMO) MARLENA Reed [id number] Марина Reed 05/14/2018 1 [facility] (O) MARLENA Mendietaillo [id number] Марина Mendietaillo 07/21/2018 1 [facility] CLARITY (HMO) MARLENA Mendietaillo [id number] Марина Reed 03/22/2019 1 [facility] CL[facility] (O) MARLENA Reed [id number] Марина Reed Notes Date Note Type Note Provider Name and Address Organization Details Recorded Time 03/24/2018 text/html Pt is 28 y/o F with pmhx of Asthma, Seasonal Allergies new to [facility] who we are called to evaluate for [...] CP, n/v. SHAN BRANNON [address], [place], [address], [place] [facility] 03/24/2018 13:35:57 05/14/2018 text/html 28-year-old female who was noted this [facility] was evaluated with complaints of a cough, sinus congestion and myalgias, starting 4 days ago. The patient stated that I feel like I am dying . 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 She denies any neck pain, shortness of breath, chest pain, abdominal pain, dysuria, hematuria, vomiting, diarrhea or any rashes. TEDDY KENDALL NP [address], [place], [address], [facility] 05/14/2018 22:44:24 07/21/2018 text/html 28-year-old female, who is known to myself and [facility] from from a previous visit, was evaluated for complaints of sore throat starting yesterday. 2 of the patient's 3 children have been diagnosed with strep pharyngitis. The patient denies any fever, chills, sweats, headache, neck pain, chest pain, shortness of breath, cough, nausea, vomiting, arthralgias, myalgias or any other complaints. She does have some mild discomfort to the anterior cervical lymph nodes. TEDDY KNEDALL NP [address], [place], [address], [place] [facility] 07/21/2018 11:51:01 03/22/2019 text/html [...] much relief. SHAN RAMON [address], [place], [address], [place] [facility] 03/23/2019 04:45:11 OBGyn Episode No OBEpisode recorded.
--- NOTE | 2024-04-08 13:39 | AM.OFFVISNUR ---
Intake Visit Reasons: B12 injection Allergies Seasonal Allergies Allergy (Intermediate, Verified 03/31/24 11:40) rhinorrhea Nursing Note Pt Ambulated (I) gait steady to room 5. Administered Vitamin B12 injection to right deltoid. Pt tolerated well.
== END 2024-04-08 13:41 | disposition home or self-care (01) ==
PROVIDERS: PCP Internal Medicine; Visit Provider Internal Medicine
DX: D51.8 Other vitamin B12 deficiency anemias (principal)

== ENCOUNTER → 2024-04-28 15:35 | Outpatient (BNV) | payer OTHER, SELFPAY | PROVIDERS: Visit Provider Internal Medicine | DX: D50.0 Iron deficiency anemia secondary to blood loss (chronic) (principal) | CPT/HCPCS: 99204; G2211 ==

== ENCOUNTER 2024-05-21 10:30 | Outpatient (AMB) | payer OTHER, SELFPAY ==
--- NOTE | 2024-05-21 11:12 | AM.OFFVISNUR ---
Intake Visit Reasons: B12 injection Allergies Seasonal Allergies Allergy (Intermediate, Verified 03/31/24 11:40) rhinorrhea Nursing Note Pt came in for Vitamin B12 injection which was administered to the left deltoid. Pt tolerated well. Office Meds cyanocobalamin (vitamin B-12) 1,000 mcg/mL injection solution Performing Provider: Clara Vail MD [place] [facility] Administered by: Jenny Ortiz on 05/21/24 11:13 Dose Route Admin Location Dispensed Lot Number Expiration Date [facility] Dimethylaniline Sulfator Operator 1,000 mcg IM 1 mL [id number] 03/12/25 58189-081-41 MONA PHARMACEUT Assessment & Plan Assessment & Plan Orders: Orders AMB Vitamin B12 Injection Patient Supplied Today D51.8 - Other vitamin B12 deficiency anemias Medications: New cyanocobalamin (vitamin B-12) 1,000 mcg IM ONCE 1 mL 0RF D51.8 - Other vitamin B12 deficiency anemias Coding
--- OUTSIDE RECORDS SUMMARY | 2024-05-21 12:36 | XMS_ITS | Clinical Summary ---
Author Organization [facility] Address [address] [place] [address] Phone Care Team Providers Care Director Of Conservation Name Role Phone Unavailable Primary Care Provider Unavailabl e Immunizations Name Administration Dates Next Due DTP 11/02/1992, 0,01/02/1989,06/29/18 89,1988 Hep B, ped/adol 01/12/2000,07/23/1998 Hib (PRP-T) 08/20/1989 MMR 07/23/1998,01/17/1990,05/19/1989 OPV 11/02/1992, 0,1988,04/25/18 89 Td (adult) (MBL), 2 Lf tetan us toxoid, PF, adsorbed 01/12/2000 Social History Tobacco Use Types Packs/Day Years Used Date Smoking Tobacco: Never Assessed Comments Unknown Sex and Gender Information Value Date Recorded Sex Assigned at Not on file Legal Sex Female 4:40 PM EDT Gender Identity Not on file Sexual Orientation Not on file Plan of Treatment Health Maintenance Due Date Last Done Comments DTaP,Tdap,and Td Vaccines (6 - Tdap) 01/13/2000 01/12/2000, 11/02/1992, 08/20/1989, Additional history exists Hepatitis B Vaccines (3 of 3 - 3-dose series) 03/08/2000 01/12/2000, 07/23/1998 Varicella Vaccines (1 of 2 - 13+ 2-dose series) 02/19/2001 Consider Men B Vaccine (1 of 2 - Bexsero 2-dose series) 2004 Influenza Vaccines (#1) 2023 COVID-19 Vaccine (1 - season) 2023 HIB Vaccines Completed 08/20/1989 IPV Vaccines Completed 11/02/1992, 07/24, 1988, Additional history exists MMR Vaccines Completed 07/23/1998, 12/23, 05/19/1989 HPV Vaccines Aged Out No longer eligi ble based on patient's age to complete this topic Hepatitis A Vaccines Aged Out No long er eligible based on patient's age to complete this topic Men B Vaccine Aged Out No longer elig ible based on patient's age to complete this topic Meningococcal Vaccine Aged Out No fabby bryant eligible based on patient's age to complete this topic Pneumococcal Vaccine Aged Out No long er eligible based on patient's age to complete this topic
--- OUTSIDE RECORDS SUMMARY | 2024-05-21 12:36 | XMS_ITS | Clinical Summary ---
Author Organization [facility] ity Address [address] [place] [address] Care Team Providers Care Public Health Sanitarian Technician Name Role Phone Clara Vail MD Primary Care Provider Allergies Active Allergy Reactions Criticality Noted Date Comments Cat Dander 01/29/2018 Medications Medication Sig Dispensed Refills Start Date End Date Status etonogestreL-ethinyl estradioL (NUVARING) 0.12-0.015 mg/24 hr vaginal ring Insert 1 vaginal ring x3 consecutive weeks, remove x1 week for menses then repeat 09/12/2023 Active fluconazole (DIFLUCAN) 150 mg tablet Take 1 tab PO every 3 days for 3 doses 08/28/2023 Active mometasone (ELOCON) 0.1 % ointment Apply half a fingertip amount to the vulva nightly x4 weeks then twice weekly thereafter 08/28/2023 Active levonorgestreL (PLAN B) 1.5 mg tablet Take 1 tablet (1.5 mg total) by mouth 1 (one) time. 06/11/2023 Active multivitamin with iron (DAILY MULTIPLE VITAMINS/IRON ORAL) Take by mouth. A ctive cetirizine HCl (ZYRTEC ORAL) Take by mouth. Active Immunizations Name Administration Dates Next Due Moderna SARS-CoV-2 COVID-19, mRNA, LNP-S, preservative free 09/01/2020,08/04/2020 Tdap Tetanus diptheria acell ular pertussis (Boostrix; Adacel) 7yo and older 06/22/2015 Surgical History Surgery Date Site/Laterality Comments FOOT SURGERY PROCEDURE: MA UNLISTED PROCEDURE FOOT/TOES Medical History Medical History Date Comments History of anemia 03/21/2016 DX:History of anemia; COMMENT: H & H 9.4 / 30.4 History of vitamin D deficiency 03/21/2016 DX:History of vitamin D deficiency; COMMENT: Vitamin D = 8 Migraines DX:Migraines; CO MMENT: without aura Anxiety DX:Anxiety HSV-2 infection DX:HSV-2 infecti on History of chlamydia 05/26/2008 DX:History of chlamydia Bacterial vaginosis 07/06/2015 DX:Bacterial vaginosis; COMMENT: 12/22/14, 12/26/13, 11/12/12 Vaginal yeast infection 03/16/2015 DX:Vagin al yeast infection; COMMENT: 06/03/13, 04/28/13 Family History Medical History Relation Name Comments No Known Problems Father No Known Problems Mother Diabetes Paternal Grandmother Hypertension Paternal Grandmother Breast cancer Neg Hx Ovarian cancer Neg Hx Uterine cancer Neg Hx Relation Name Status Comments Brother x2 Alive Father Alive Mother Alive Paternal Grandmother Sister Alive Social History Tobacco Use Types Packs/Day Years Used Date Smoking Tobacco: Never Smokeless Tobacco: Never Alcohol Use Standard Drinks/Week Comments Yes 0 (1 standard drink = 0.6 oz pur e alcohol) Sex and Gender Information Value Date Recorded Sex Assigned at Not on file Gender Identity Not on file Sexual Orientation Not on file Job Start Date Occupation Industry Not on file Not on file Not on file Obstetrics History Last Filed Vital Signs Vital Sign Reading Time Taken Comments Blood Pressure 132/79 09/12/2023 10:03 AM EDT Pulse 70 09/12/2023 10:03 AM EDT Temperature - - Respiratory Rate - - Oxygen Saturation - - Inhaled Oxygen Concentration - - Weight 68 kg (150 lb) 09/12/2023 10:03 AM EDT Height 157.5 cm (5' 2 ) 06/11/2023 10:02 AM EST Body Mass Index 27.44 06/11/2023 10:02 AM EST Plan of Treatment Upcoming Encounters Date Type Department Care Team (Late st Contact Info) Description 06/17/2024 9:20 AM EST Office Visit Obstetrics and Gynecology [address] [address] Jackie Quiroz PA [address] [place] [address] Health Maintenance Due Date Last Done Comments Hepatitis B Vaccines (1 of 3 - 19+ 3-dose series) 02/19/2007 Depression Screening 03/21/2022 HIV Screening 03/21/2022 Hepatitis C Screening 03/21/2022 Social Influencers of Health Screening 03/21/2022 COVID-19 Vaccine (3 - 2023-2 5 season) 2023 09/01/2020, 08/04/2020 Influenza Vaccine (#1) 2023 Cervical Cancer Screening: HPV 05/12/2025 05/12/2020 DTaP,Tdap,and Td Vaccines (2 - Td or Tdap) 06/21/2025 06/22/2015 HIB Vaccines Aged Out No longer eligi ble based on patient's age to complete this topic HPV Vaccines Aged Out No longer eligi ble based on patient's age to complete this topic Hepatitis A Vaccines Aged Out No long er eligible based on patient's age to complete this topic IPV Vaccines Aged Out No longer eligi ble based on patient's age to complete this topic MMR Vaccines Aged Out No longer eligi ble based on patient's age to complete this topic Meningococcal ACWY Vaccine Aged Out N o longer eligible based on patient's age to complete this topic Pneumococcal Vaccine: Pediatrics (0 to 5 Years) and At-Risk Patients (6 to 64 Years) Aged Out No longer eligible b ased on patient's age to complete this topic RSV Immunization Patients Under 20 months Aged Out No longer eligible b ased on patient's age to complete this topic Varicella Vaccines Aged Out No longer eligible based on patient's age to complete this topic Procedures Procedure Name Priority Date/Time Associated Diagnosis Comments HPV Routine 05/12/2020 from Last 3 Months or Most Recently Relevant to Health Maintenance Results * Cervical Cancer Screening: HPV (05/12/2020) Cervical Cancer Screening: HPV Negative, Abstracted Historical Provider MD VICKEY Wu from Last 3 Months or Most Recently Relevant to Health Maintenance Care Teams Public Health Sanitarian Technician Relationship Specialty Start Date End Date Clara Vail MD [address] [place] [address] PCP - General Internal Medicine 09/11/17
== END 2024-05-21 11:12 | disposition home or self-care (01) ==
PROVIDERS: PCP Internal Medicine; Visit Provider Internal Medicine
DX: D51.8 Other vitamin B12 deficiency anemias (principal)

== ENCOUNTER → 2024-05-21 10:30 | Outpatient (BNVA) | payer OTHER, SELFPAY | PROVIDERS: PCP Internal Medicine; Visit Provider Internal Medicine | DX: D51.8 Other vitamin B12 deficiency anemias (principal) | CPT/HCPCS: 96372; J3420 ==

== ENCOUNTER 2024-06-17 10:00 | Outpatient (AMB) | payer OTHER, SELFPAY ==
--- NOTE | 2024-06-17 10:15 | AM.OFFVISNUR ---
Intake Visit Reasons: b12 Intake Note: Pt arrived for monthly B-12 injection. Allergies Seasonal Allergies Allergy (Intermediate, Verified 03/31/24 11:40) rhinorrhea Office Meds cyanocobalamin (vitamin B-12) 1,000 mcg/mL injection solution Performing Provider: Clara Vail MD Performing [place] [facility] Administered by: Lisette Bowden RN on 06/17/24 10:16 Dose Route Admin Location Dispensed Lot Number Expiration Date [facility] Direct Marketing Manager 1,000 mcg IM Left deltoid 1 mL [id number] 02/21/25 74383-493-81 MONA PHARMACEUT Comments: Pt supplied Assessment & Plan Assessment & Plan Orders: Orders AMB Vitamin B12 Injection Patient Supplied Today D51.8 - Other vitamin B12 deficiency anemias Medications: New cyanocobalamin (vitamin B-12) 1,000 mcg IM ONCE 1 mL 0RF D51.8 - Other vitamin B12 deficiency anemias Coding
--- OUTSIDE RECORDS SUMMARY | 2024-06-17 11:36 | XMS_ITS | Encounter Summary ---
Author Organization [facility] Address [id number] [place] [phone] Care Team Providers Care Registered Representative Name Role Phone Clara Vail MD Primary Care Provider Reason for Visit * Reason Comments Gynecologic Exam Encounter Details Date Type Department Care Team ([facility] st Contact Info) Description 06/17/2024 9:20 AM EST Office Visit Obstetrics and Gynecology - [address] [address] Jackie Quiroz PA [address] [place] [phone] Encounter for gynecological examination (general) (routine) with abnormal findings (Primary Dx); Menorrhagia with regular cycle; Screen for STD (sexually transmitted disease) Social History Tobacco Use Types Packs/Day Years Used Date Smoking Tobacco: Never Smokeless Tobacco: Never Alcohol Use Standard Drinks/Week Comments Not Currently 0 (1 standard drink = 0.6 oz pur e alcohol) Comments No Sex and Gender Information Value Date Recorded Sex Assigned at Not on file Legal Sex Female 10:25 AM EST Gender Identity Not on file Sexual Orientation Not on file documented as of this encounter Last Filed Vital Signs Vital Sign Reading Time Taken Comments Blood Pressure 122/70 06/17/2024 9:28 AM EST Pulse 76 06/17/2024 9:28 AM EST Temperature - - Respiratory Rate 14 06/17/2024 9:28 AM EST Oxygen Saturation - - Inhaled Oxygen Concentration - - Weight 75.8 kg (167 lb 3.2 oz) 06/17/2024 9:28 A M EST Height 157.5 cm (5' 2 ) 06/17/2024 9:28 AM EST Body Mass Index 30.58 06/17/2024 9:28 AM EST documented in this encounter Ordered Prescriptions Prescription Sig Dispense Quantity Refills Last Filled Start Date End Date etonogestreL-ethin yl estradioL (NUVARING) 0.12-0.015 mg/24 hr vaginal ring Insert 1 each into the vagina every 28 (twenty-eight) days. Insert 1 vaginal ring x3 consecutive weeks, remove x1 week for menses then repeat 12 each 06/17/2024 documented in this encounter Progress Notes * SHAN Dawn - 06/17/2024 9:20 AM EST IDENTIFIER:Марина Reed is a 34 y.o. No obstetric history on file. CHIEF COMPLAINT: Gynecologic Exam HPI: Марина has been well since her last exam. She presents with concern of heavy bleeding. Was bleeding frequently on Depo. Has heavy bleeding. Lasting about 4 days. She receives Iron transfusions for anemia. Sexually active Using NuvaRing vaginal inserts for contraception. No LMP recorded.. Periods are as above. STD Hx: Negative PAP Hx: negative in the past. Last 2020 Patient reports exercise Gets multiple servings of calcium. Feels safe at home Denies symptoms of depression ROS: GENERAL: Denies fever, chills, recent changes in weight HEENT: Denies sore throat, rhinorrhea, or changes in vision, taste or smell. RESPIRATORY: Denies cough, shortness of breath, or wheezing CARDIOVASCULAR: Denies CP, palpitations, tachycardia BREAST: Denies lumps, discharge, pain or change in skin GASTROINTESTINAL: Denies abdominal pain, N/V/D/C. Denies changes in appetite. (+) Passing gas, (+) BM MD PEDIATRIC ALLERGIST: See HPI MUSCULOSKELETAL: Denies myalgias, arthralgias SKIN: Denies changes in skin, hair or nails. No concerning rash or itching NEUROLOGIC: Denies VILLALBA, LOC, weakness, dizziness, numbness or tingling. PAST MEDICAL HISTORY: Last Pap Smear: @[id number]@ Last Mammogram: @[email or web address]@ POBHX: OB History No obstetric history on file. --- has a past medical history of Anxiety, Bacterial vaginosis (07/06/2015), History of anemia (03/21/2016), History of chlamydia (05/26/2008), History of vitamin D deficiency (03/21/2016), HSV-2 infection, Migraines, and Vaginal yeast infection (03/16/2015). PAST SURGICAL HISTORY: has a past surgical history that includes Foot surgery. SOCIAL HISTORY: Social History Tobacco Use Smoking status: Never Smokeless tobacco: Never Substance Use Topics Alcohol use: Yes Drug use: No FAMILY HISTORY: Family History Problem Relation Name Age of Onset No Known Problems Mother No Known Problems Father Diabetes Paternal Grandmother Hypertension Paternal Grandmother Breast cancer Neg Hx Ovarian cancer Neg Hx Uterine cancer Neg Hx ACTIVE MEDICATIONS: Current Outpatient Medications: cetirizine HCl (ZYRTEC ORAL), Take by mouth., Disp: , Rfl: etonogestreL-ethinyl estradioL (NUVARING) 0.12-0.015 mg/24 hr vaginal ring, Insert 1 vaginal ring x3 consecutive weeks, remove x1 week for menses then repeat, Disp: , Rfl: fluconazole (DIFLUCAN) 150 mg tablet, Take 1 tab PO every 3 days for 3 doses (Patient not taking: Reported on 06/17/2024), Disp: , Rfl: levonorgestreL (PLAN B) 1.5 mg tablet, Take 1 tablet (1.5 mg total) by mouth 1 (one) time. (Patientnot taking: Reported on 06/17/2024), Disp: , Rfl: mometasone (ELOCON) 0.1 % ointment, Apply half a fingertip amount to the vulva nightly x4 weeks then twice weekly thereafter, Disp: , Rfl: multivitamin with iron (DAILY MULTIPLE VITAMINS/IRON ORAL), Take by mouth., Disp: , Rfl: ALLERGIES: Cat dander The patient's medical, surgical, MD PEDIATRIC ALLERGIST, OB and family histories were reviewed at this visit. Her medications and allergies were also reviewed. PHYSICAL EXAM: Visit Vitals Smoking Status Never GENERAL: Well-appearing, well-nourished patient SKIN: Warm, normal for ethnicity and dry. EYE: Visual sellers intact grossly, No conjunctiva injection. No scleral icterus. EENT: Normocephalic/atraumatic. No conjunctival injection noted. Good dentition, NECK: Trachea midline. No visible evidence of thyroid enlargement. CARDIO: RRR, No M/R/G appreciated PULM: Non-labored breathing. No audible wheezing BREAST: No masses, tenderness or discharge. No skin changes ABDOMINAL: Soft, non-distended, non-tender. EXTREMITIES: ROM grossly intact. Normal Tone. No cyanosis, clubbing, or edema NEURO: Alert & oriented x3, no aphasia or dysarthria PSYCH: Normal affect, fluid speech, good eye contact, appropriate demeanor Pelvic: Exam chaperoned by rn medical inpatient services Speculum was used for exam External Genitalia: Normal architecture, without lesions. Vagina: Mucosa is pink with normal rugae. No abnormal discharge Cervix/Uterus: No lesions or cervical motion tenderness Perianal area: without lesions IMPRESSION: There are no diagnoses linked to this encounter. PLAN: Bone Health: Recommend calcium and vitamin D supplementation; include weightbearing exercise Cervical Cancer screening: Discussed frequency of Pap smear - due 2025 Breast Cancer Screening: Discussed frequency of mammogram Encouraged self breast exams No findings on today's exam STI Testing: Ordered BMI Plan: Encouraged low calorie diet focusing on lean protein and whole food choices including fruits and vegetables Physical Activity: Encouraged accumulating 150 minutes of exercise throughout the week including weightbearing and strength training Menorrhagia Rule out infection and consider ultrasound if negative. Labs ordered/performed: STI Screening and Serum STI Screening Imaging ordered/performed: None documented in this encounter Plan of Treatment Pending Results Name Type Priority Associated Diagnoses Date /Time HIV 1,2 antibody, p24 antigen with reflex to differentiation Lab Routine Screen for STD (sexually transmitted disease) 06/17/2024 11:12 AM EST Treponema pallidum antibody with reflex to RPR and particle agglutination Lab Routine Screen for STD (sexually transmitted disease) 06/17/2024 11:12 AM EST Hepatitis C antibody Lab Routine Screen for STD (sexually transmitted disease) 06/17/2024 11:12 AM EST Chlamydia trachomatis and Neisseria gonorrhoeae molecular study Microbiology Routine Screen for STD (sexually transmitted disease) 06/17/2024 9:56 AM EST Wet prep, genital Microbiology Routine Menorrhagia with regular cycle 06/17/2024 9:56 AM EST Scheduled Orders Name Type Priority Associated Diagnoses Orde r Schedule HIV 1,2 antibody, p24 antigen with reflex to differentiation Lab Routine Screen for STD (sexually transmitted disease) 1 Occurrences starting 06/17/2024 until 06/17/2025 Treponema pallidum antibody with reflex to RPR and particle agglutination Lab Routine Screen for STD (sexually transmitted disease) 1 Occurrences starting 06/17/2024 until 06/17/2025 Hepatitis C antibody Lab Routine Screen for STD (sexually transmitted disease) 1 Occurrences starting 06/17/2024 until 06/17/2025 documented as of this encounter Visit Diagnoses Diagnosis Encounter for gynecological examination (general) (routine) with abnormal findings- Primary Menorrhagia with regular cycle Screen for STD (sexually transmitted disease) Screening examination for venereal disease documented in this encounter Discontinued Medications Medication Sig Discontinue Reason Start Date End Da te fluconazole (DIFLUCAN) 150 mg tablet Take 1 tab PO every 3 days for 3 doses 08/28/2023 06/17/2024 levonorgestreL (PLAN B) 1.5 mg tablet Take 1 tablet (1.5 mg total) by mouth 1 (one) time. 06/11/2023 06/17/2024 etonogestreL-ethinyl estradioL (NUVARING) 0.12-0.015 mg/24 hr vaginal ring Insert 1 vaginal ring x3 consecutive weeks, remove x1 week for menses then repeat Reorder 09/12/2023 06/17/2024 documented as of this encounter Care Teams Registered Representative Relationship Specialty Start Date End Date Clara Vail MD [address] [place] [address] PCP - General Internal Medicine 09/11/17 documented as of this encounter
--- OUTSIDE RECORDS SUMMARY | 2024-06-17 11:36 | XMS_ITS | Clinical Summary ---
Author Organization [facility] [address] [place] [address] [place] [phone] Phone Care Team Providers Care Plate Corrector Name Role Phone Clara Vail MD Primary Care Provider [phone] Allergies Active Allergy Reactions Criticality Noted Date Comments Cat Dander 01/29/2018 Medications mometasone (ELOCON) 0.1 % ointment Apply half a fingertip amount to the vulva nightly x4 weeks then twice weekly thereafter 08/28/19 24 Active multivitamin with iron (DAILY MULTIPLE VITAMINS/IRON ORAL) Take by mouth. Activ e cetirizine HCl (ZYRTEC ORAL) Take by mouth. Activ e etonogestreL- ethinyl estradioL (NUVARING) 0.12-0.015 mg/24 hr vaginal ring Insert 1 each into the vagina every 28 (twenty-eight) days. Insert 1 vaginal ring x3 consecutive weeks, remove x1 week for menses then repeat 12 each 06/17/19 25 026 Active etonogestreL- ethinyl estradioL (NUVARING) 0.12-0.015 mg/24 hr vaginal ring Insert 1 vaginal ring x3 consecutive weeks, remove x1 week for menses then repeat 09/12/19 24 025 Discontinued(Re order) fluconazole (DIFLUCAN) 150 mg tablet Take 1 tab PO every 3 days for 3 doses 08/28/19 24 025 Discontinued levonorgestre L (PLAN B) 1.5 mg tablet Take 1 tablet (1.5 mg total) by mouth 1 (one) time. 06/11/19 24 025 Discontinued Encounters Date Type Department Care Team Description 06/17/2024 9:20 AM EST Office Visit Obstetrics and Gynecology [address] [phone] Jackie Quiroz PA Encounter for gynecological examination (general) (routine) with abnormal findings (Primary Dx); Menorrhagia with regular cycle; Screen for STD (sexually transmitted disease) from Last 3 Months Immunizations Name Administration Dates Next Due Moderna SARS-CoV-2 COVID-19, mRNA, LNP-S, preservative free 09/01/2020,08/04/2020 Tdap Tetanus diptheria acell ular pertussis (Boostrix; Adacel) 7yo and older 06/22/2015 Surgical History Surgery Date Site/Laterality Comments FOOT SURGERY PROCEDURE: [place] UNLISTED PROCEDURE FOOT/TOES Medical History Medical History [...] on file Sexual Orientation Not on file Obstetrics History Para Term AB IAB SAB Ectopic Multiple Livin g Live Births 5 3 3 0 2 0 2 0 0 3 3 Date Outcome GA Total Labor Labor/2nd/3rd Weight Sex Type Anes PTL Michelle A1 A5 Name Clin 2007 [facility] 2008 Term 40w 5d 2863 g (101 oz) F Vag-S pont Epidur al N Livin g [address] Sheehan Complications: aspir ation syndrome Delivery Location:[facility] 2013 Term 37w 4d 2892 g (102 oz) M Vag-S pont Epidur al N Livin g Dr Stone Complications:None Delivery Location:[facility] 2014 [facility] 2015 Term 37w 2d 2920 g (103 oz) M Vag-S pont Epidur al N Livin g Dr Stone Complications:Herpes simplex type 2 infection Delivery Location:[facility] Last Filed Vital Signs Vital Sign Reading [...] Mass Index 30.58 06/17/2024 9:28 AM EST Plan of Treatment Health Maintenance Due Date Last Done Comments Hepatitis B Vaccines (3 of 3 - 3-dose series) 03/08/2000 01/12/2000, 07/23/1998 Depression Screening 03/21/2022 HIV Screening 03/21/2022 Hepatitis C Screening 03/21/2022 Social Influencers of Health Screening 03/21/2022 COVID-19 Vaccine ( season) 2023 05/19/2022, 05/02/2021, 09/01/2020, Additional history exists Influenza Vaccine (#1) 2023 05/19/2022, 2020 Cervical Cancer Screening: HPV 05/12/2025 05/12/2020 DTaP,Tdap,and Td Vaccines (8 - Td or Tdap) 06/21/2025 06/22/2015, 01/12/2000, 11/02/1992, Additional history exists HIB Vaccines Completed 08/20/1989 IPV Vaccines Completed [...] patient's age to complete this topic Meningococcal B Vacine Aged Out No lo nger eligible based on patient's age to complete this topic Pneumococcal Vaccine: Pediatrics (0 to 5 Years) and At-Risk Patients (6 to 64 Years) Aged Out No longer eligible based on patient's age to complete this topic RSV Immunization Patients Under 20 months Aged Out No longer eligible based on [...] Screening: HPV Negative, Abstracted Historical Provider MD HEALTH MAINTENANCE Final Result from Last 3 Months or Most Recently Relevant to Health Maintenance Insurance [facility] Care Teams Plate Corrector Relationship Specialty Start Date End Date Clara Vail MD [address] [place], [place] [address], [place] [address] PCP - General Internal Medicine 09/11/17
--- OUTSIDE RECORDS SUMMARY | 2024-06-17 11:36 | XMS_ITS | Clinical Summary ---
Author Organization [facility] Address [address] [place] [address] Phone Care Team Providers Care Linux Server Engineer Name Role Phone Unavailable Primary Care Provider Unavailabl e Immunizations Immunization Administration Dates Next Due DTP 11/02/1992, 0,01/02/1989,1988,1988 Hep B, ped/adol 01/12/2000,07/23/1998 Hib (PRP-T) 08/20/1989 MMR 07/23/1998,01/17/1990,05/19/1989 OPV 11/02/1992, 0,1988,1988 Td (adult) (MBL), 2 Lf tetan us [...] of 2 - 13+ 2-dose series) 02/19/2001 Influenza Vaccines (#1) 2023 COVID-19 Vaccine ( - season) 2023 HIB Vaccines Completed 08/20/1989 [...]
== END 2024-06-17 11:07 | disposition home or self-care (01) ==
PROVIDERS: PCP Internal Medicine; Visit Provider Internal Medicine
DX: D51.8 Other vitamin B12 deficiency anemias (principal)

== ENCOUNTER → 2024-06-17 10:00 | Outpatient (BNVA) | payer OTHER, SELFPAY | PROVIDERS: PCP Internal Medicine; Visit Provider Internal Medicine | DX: D51.8 Other vitamin B12 deficiency anemias (principal) | CPT/HCPCS: 96372; J3420 ==

== ENCOUNTER 2024-06-18 13:45 | Outpatient (RCR) | payer OTHER, SELFPAY ==
[2024-05-12 13:41] VITALS: BP 125/71; PULSE 75; RESP 14; TEMP 36.8; O2SAT 100
[2024-05-12] MEDS: Iron Sucrose Complex 200 MG/10 ML VIAL IVPUSH (13:53)
[2024-05-12] MEDS: 0.9 % Sodium Chloride Flush 10 ML SYRINGE 5 ML IVFLUSH (13:58)
[2024-05-21 09:06] VITALS: BP 136/71; PULSE 73; RESP 14; TEMP 36.6; O2SAT 100
[2024-05-21] MEDS: Iron Sucrose Complex 200 MG/10 ML VIAL IVPUSH (09:13)
[2024-05-28 13:49] VITALS: BP 133/71; PULSE 78; RESP 14; O2SAT 98
[2024-05-28] MEDS: Iron Sucrose Complex 200 MG/10 ML VIAL IVPUSH (13:53)
[2024-06-04 13:50] VITALS: BP 122/66; PULSE 68; RESP 14; TEMP 36.6; O2SAT 100
[2024-06-04] MEDS: Iron Sucrose Complex 200 MG/10 ML VIAL IVPUSH (13:56)
[2024-06-04 14:03] LABS: Hematocrit 34.6 % (37.0-47.0); Hemoglobin 10.7 g/dl (12.0-16.0); Mean Corpuscular HGB Conc 30.9 g/dl (31.0-35.0); Mean Corpuscular Hemoglobin 24.8 pg (27.0-33.0); Mean Corpuscular Volume 80.1 fL (80.0-98.0); Mean Platelet Volume 10.1 fL (9.4-12.3); Platelet Count 272 X10*3/uL (160-400); Red Blood Count 4.32 X10*6/uL (4.20-5.50); Red Cell Distribution Width 20.1 % (11.0-16.0); White Blood Count 4.4 X10*3/uL (4.8-10.8)
[2024-06-04 14:41] LABS: Ferritin 165 ng/mL (10-122)
[2024-06-11 09:13] VITALS: BP 122/47; PULSE 78; RESP 16; TEMP 36.1; O2SAT 98
[2024-06-11] MEDS: Iron Sucrose Complex 200 MG/10 ML VIAL IVPUSH (09:19)
[2024-06-18 13:41] VITALS: BP 117/52; PULSE 65; RESP 16; TEMP 37.1; O2SAT 99
[2024-06-18] MEDS: Iron Sucrose Complex 200 MG/10 ML VIAL IVPUSH (13:46)
== END 2024-06-18 14:01 | disposition home or self-care (01) ==
LOC: HO.INF 13:45
PROVIDERS: Visit Provider Internal Medicine
DX: D50.9 Iron deficiency anemia, unspecified (principal)
CPT/HCPCS: 36415; 82728; 85027; 96374; J1756

== ENCOUNTER 2024-06-27 10:22 | Outpatient (AMB) | payer OTHER, SELFPAY ==
--- NOTE | 2024-06-27 10:39 | AM.OFFVISNUR ---
Intake Visit Reasons: B12 injection Allergies Seasonal Allergies Allergy (Intermediate, Verified 03/31/24 11:40) rhinorrhea Nursing Note Pt came into the office. Medicated x 1 with vitamin B12 to left deltoid. Pt tolerated well. Office Meds cyanocobalamin (vitamin B-12) 1,000 mcg/mL injection solution Performing Provider: Clara Vail MD Performing Location: [facility] Adult [facility] Administered by: Jenny Ortiz on 06/27/24 10:40 Dose Route Admin Location Dispensed Lot Number Expiration Date [facility] Radio Engineer 1,000 mcg IM left deltoid 1 mL [id number] 01/10/26 60352-286-20 Chain Assessment & Plan Assessment & Plan Orders: Orders AMB Vitamin B12 Injection Patient Supplied Today D51.8 - Other vitamin B12 deficiency anemias Medications: New cyanocobalamin (vitamin B-12) 1,000 mcg IM ONCE 1 mL 0RF D51.8 - Other vitamin B12 deficiency anemias Coding
--- OUTSIDE RECORDS SUMMARY | 2024-06-27 11:36 | XMS_ITS | Clinical Summary ---
Author Organization [facility] [address] [place] [address] [place] [phone] Phone Care Team Providers Care Grease Refiner Operator Name Role Phone Clara Vail MD Primary [...] 1 (one) time. 06/11/19 24 025 Discontinued fluconazole (DIFLUCAN) 150 mg tablet Take 1 tablet (150 mg total) by mouth every 3 (three) days for 2 doses. If symptoms not resolved in 3 days, take second dose 2 tablet 06/19/19 25 025 Encounters Date Type Department Care Team Description 06/17/2024 9:20 AM EST Office Visit Obstetrics and Gynecology [address] [phone] Jackie Quiroz, PA Encounter for gynecological examination (general) (routine) with abnormal findings (Primary Dx); Menorrhagia with regular cycle; Screen for STD (sexually transmitted disease) from Last 3 Months Immunizations Name Administration Dates Next Due Moderna SARS-CoV-2 COVID-19, mRNA, LNP-S, preservative free 09/01/2020,08/04/2020 Tdap Tetanus diptheria acell ular pertussis (Boostrix; Adacel) 7yo and older 06/22/2015 Surgical History Surgery Date Site/Laterality Comments FOOT SURGERY PROCEDURE: [place] UNLISTED PROCEDURE FOOT/TOES Medical History Medical History [...] PTL Michelle A1 A5 Name Clin 2007 [facility] 2008 Term 40w 5d 2863 g (101 oz) F Vag-S pont Epidur al N Livin g [address] Sheehan Complications: aspir ation syndrome Delivery Location:[facility] 2013 Term 37w 4d 2892 g (102 oz) M Vag-S pont Epidur al N Livin g Dr Stone Complications:None Delivery Location:[facility] 2014 [facility] 2015 Term 37w 2d 2920 g (103 oz) M Vag-S pont Epidur al N Livin g Dr tSone Complications:Herpes simplex type 2 infection Delivery Location:[facility] Last Filed Vital Signs Vital Sign Reading [...] series) 03/08/2000 01/12/2000, 07/23/1998 Depression Screening 03/21/2022 Social Influencers of Health Screening [...] exists MMR Vaccines Completed 07/23/1998, 12/23, 05/19/1989 HIV Screening Completed 06/17/2024 Hepatitis C Screening Completed 06/17/2024 HPV Vaccines Aged Out No longer eligi [...] Procedure Name Priority Date/Time Associated Diagnosis Comments HIV 1, 2 ANTIBODY, P24 ANTIGEN WITH REFLEX TO DIFFERENTIATION Routine 06/17/2024 11:12 AM EST Screen for STD (sexually transmitted disease) TREPONEMA PALLIDUM ANTIBODY WITH REFLEX TO RPR AND PARTICLE AGGLUTINATION Routine 06/17/2024 11:12 AM EST Screen for STD (sexually transmitted disease) HEPATITIS C ANTIBODY Routine 06/17/2024 11:12 AM EST Screen for STD (sexually transmitted disease) TRICHOMONAS VAGINALIS ANTIGEN Routine 06/17/2024 9:56 AM EST Menorrhagia with regular cycle WET PREP, GENITAL Routine 06/17/2024 9:5 6 AM EST Menorrhagia with regular cycle CHLAMYDIA TRACHOMATIS AND NEISSERIA GONORRHOEAE PCR Routine 06/17/2024 9:56 AM EST Screen for STD (sexually transmitted disease) HM HPV Routine 05/12/2020 from Last 3 Months or Most Recently Relevant to Health Maintenance Results * Hepatitis C antibody (06/17/2024 11:12 AM EST) [facility] Hepatitis C Antibody Negative Negative LAB CHEMISTRY METHOD 06/17/2024 4:07 PM EST [facility] Blood Venous blood specimen / Unknown Venipuncture / Unknown 06/17/2024 11:12 AM EST 06/17/2024 11:12 AM EST us Jackie TORREZ LAB BLOOD ORDERABLES Final R esult Performing Organization Address [facility] Co de Phone Number [facility] [address] [place] [address], [place] [phone] * HIV 1,2 antibody, p24 antigen with reflex to differentiation (06/17/2024 11:12 AM EST) [facility] HIV Combo AB/AG Negative Negative LAB CHEMISTRY METHOD 06/17/2024 3:07 PM EST [facility] Blood Venous blood specimen / Unknown Venipuncture / Unknown 06/17/2024 11:12 AM EST 06/17/2024 11:12 AM EST Narrative [facility] - 06/17/2024 3:07 PM EST This assay is a 4th generation assay allowing for earlier detection of HIV infection by detecting the presence of the HIV-1 p24 antigen as well as the traditional antibodies to HIV type 1 (including group O) and type 2. ??Use of a 4th generation assay is the current CDC recommendation for HIV screening. us Jackie TORREZ LAB BLOOD ORDERABLES Final R esult Performing Organization Address [facility] Co de Phone Number [facility] [address] [place] [address], [place] [phone] * Treponema pallidum antibody with reflex to RPR and particle agglutination (06/17/2024 11:12 AM EST) T. Pallidum Antibodies Negative Negative LAB CHEMISTRY METHOD 06/17/2024 2:38 PM EST [facility] Blood Venous blood specimen / Unknown Venipuncture / Unknown 06/17/2024 11:12 AM EST 06/17/2024 11:12 AM EST us Jackie TORREZ LAB BLOOD ORDERABLES Final R esult [facility] [address] [place] [address], [place] [phone] * Trichomonas vaginalis antigen (06/17/2024 9:56 AM EST) Trichomonas vaginalis Negative Negative 06/17/2024 9:51 PM EST [facility] Swab Vaginal structure / Unknown Non-blood Collection / Unknown 06/17/2024 9:56 AM EST 06/17/2024 9:57 AM EST us Jackie TORREZ LAB MICROBIOLOGY - GENERAL O RDERABLES Final Result [facility] [address] [place] [address], [place] [phone] * Chlamydia trachomatis and Neisseria gonorrhoeae molecular study (06/17/2024 9:56 AM EST) Neisseria gonorrhoeae PCR Negative Negative LAB MOLECULAR DIAGNOSTICS METHOD 06/18/2024 2:08 PM EST [facility] Chlamydia trachomatis PCR Negative Negative LAB MOLECULAR DIAGNOSTICS METHOD 06/18/2024 2:08 PM EST [facility] Swab Vaginal structure / Unknown Non-blood Collection / Unknown 06/17/2024 9:56 AM EST 06/17/2024 9:57 AM EST us Jackie TORREZ LAB MICROBIOLOGY - GENERAL O RDERABLES Final Result [facility] [address] [place] [address], * (ABNORMAL) Wet prep, genital (06/17/2024 9:56 AM EST) Pathologist [facility] Clue Cells, Wet Prep Negative Negative 06/17/2024 9:51 PM EST [facility] Yeast, Wet Prep Positive(A) Negative 06/17/2024 9:51 PM EST [facility] Trichomonas, Wet Prep Indeterminate Negative 06/17/2024 9:51 PM EST [facility] Comment:Refer to Trichomonas antigen. Swab Vaginal structure / Unknown Non-blood Collection / Unknown 06/17/2024 9:56 AM EST 06/17/2024 9:57 AM EST Jackie TORREZ LAB MICROBIOLOGY - GENERAL O RDERABLES Final Result [facility] [address] [place] [address], * Cervical Cancer Screening: HPV (05/12/2020) Pathologist [facility] Cervical Cancer Screening: HPV Negative, Abstracted Historical Provider HEALTH MAINTENANCE Final Result from Last 3 Months or Most Recently Relevant to Health Maintenance Insurance [facility] [employer] Care Teams Grease Refiner Operator Relationship Specialty Start Date End Date Clara Vail MD [address] [place] [address] PCP - General Internal Medicine 09/11/17
--- OUTSIDE RECORDS SUMMARY | 2024-06-27 11:36 | XMS_ITS | Encounter Summary ---
Author Organization [facility] Address [id number] [place] [phone] Care Team Providers Care Certified Nurses' Aide Name Role Phone Clara Vail MD Primary Care Provider Reason for Visit * Reason Comments Gynecologic Exam Encounter Details Date Type Department Care Team ([facility] st Contact Info) Description 06/17/2024 9:20 AM EST Office Visit Obstetrics and Gynecology - [address] [phone] Jackie Quiroz PA [address] [place] [id number] Encounter for gynecological examination (general) (routine) with [...] for menses then repeat 12 each 06/17/2024 6 fluconazole (DIFLUCAN) 150 mg tablet Take 1 tablet (150 mg total) by mouth every 3 (three) days for 2 doses. If symptoms not resolved in 3 days, take second dose 2 tablet 06/19/2024 5 documented in this encounter Progress Notes * SHAN Dawn - 06/17/2024 9:20 AM ESTAddended by: JACKIE QUIROZ on: 06/19/2024 09:37 AM Modules accepted: Orders * SHAN Dawn - 06/17/2024 9:20 AM [...] in appetite. (+) Passing gas, (+) BM GRINDER DRESSER: See HPI MUSCULOSKELETAL: Denies myalgias, arthralgias SKIN: Denies changes in skin, hair or nails. No concerning rash or itching NEUROLOGIC: Denies VILLALBA, LOC, weakness, dizziness, numbness or tingling. PAST MEDICAL HISTORY: Last Pap Smear: @[id number]@ Last Mammogram: @[id number]@ POBHX: OB History No obstetric history on [...] ALLERGIES: Cat dander The patient's medical, surgical, GRINDER DRESSER, OB and family histories were reviewed at [...] contact, appropriate demeanor Pelvic: Exam chaperoned by medical insurance biller Speculum was used for exam External Genitalia: [...] documented in this encounter Plan of Treatment Not on file documented as of this encounter Procedures Procedure Name Priority Date/Time Associated Diagnosis Comments TRICHOMONAS VAGINALIS ANTIGEN Routine 06/17/2024 9:56 AM EST Menorrhagia with regular cycle CHLAMYDIA TRACHOMATIS AND NEISSERIA GONORRHOEAE PCR Routine 06/17/2024 9:56 AM EST Screen for STD (sexually transmitted disease) WET PREP, GENITAL Routine 06/17/2024 9:5 6 AM EST Menorrhagia with regular cycle documented in this encounter Results * Hepatitis C antibody (06/17/2024 11:12 AM EST) [facility] Hepatitis C Antibody Negative Negative LAB CHEMISTRY METHOD 06/17/2024 4:07 PM EST [facility] Blood Venous blood specimen / Unknown Venipuncture / Unknown 06/17/2024 11:12 AM EST 06/17/2024 11:12 AM EST us Jackie TORREZ LAB BLOOD ORDERABLES Final R esult Performing Organization Address [facility]/ZIP Co de Phone Number [facility] [address] [place] [address], [place] [phone] * Treponema pallidum antibody with reflex to RPR and particle agglutination (06/17/2024 11:12 AM EST) [facility] T. Pallidum Antibodies Negative Negative LAB CHEMISTRY METHOD 06/17/2024 2:38 PM EST [facility] Blood Venous blood specimen / Unknown Venipuncture / Unknown 06/17/2024 11:12 AM EST 06/17/2024 11:12 AM EST us Jackie TORREZ LAB BLOOD ORDERABLES Final R esult [facility] [address] [place] [address], [place] [phone] * HIV 1,2 antibody, p24 antigen with reflex to differentiation (06/17/2024 11:12 AM EST) [facility] HIV Combo AB/AG Negative Negative LAB CHEMISTRY METHOD 06/17/2024 3:07 PM EST [facility] Blood Venous blood specimen / Unknown Venipuncture / Unknown 06/17/2024 11:12 AM EST 06/17/2024 11:12 AM EST Narrative [facility] - 06/17/2024 3:07 PM EST [...] ORDERABLES Final R esult Performing Organization Address City/[facility]/ZIP Co de Phone Number [facility] [address] [place] [address], [place] [phone] * Trichomonas vaginalis antigen (06/17/2024 9:56 AM EST) Trichomonas vaginalis Negative Negative 06/17/2024 9:51 PM EST [facility] Swab Vaginal structure / Unknown Non-blood Collection / Unknown 06/17/2024 9:56 AM EST 06/17/2024 9:57 AM EST us Jackie TORREZ LAB MICROBIOLOGY - GENERAL O RDERABLES Final Result Performing Organization Address [facility]/ZIP Co de Phone Number [facility] [address] [place] [address], [place] [phone] * (ABNORMAL) Wet prep, genital (06/17/2024 9:56 AM EST) Clue Cells, Wet Prep Negative Negative 06/17/2024 9:51 PM EST [facility] Yeast, Wet Prep Positive(A) Negative 06/17/2024 9:51 PM EST [facility] Trichomonas, Wet Prep Indeterminate Negative 06/17/2024 9:51 PM EST [facility] Comment:Refer to Trichomonas antigen. Swab Vaginal structure / Unknown Non-blood Collection / Unknown 06/17/2024 9:56 AM EST 06/17/2024 9:57 AM EST us Jackie TORREZ LAB MICROBIOLOGY - GENERAL O RDERABLES Final Result [facility] [address] [place] [address], [place] [phone] * Chlamydia trachomatis and Neisseria gonorrhoeae molecular study (06/17/2024 9:56 AM EST) Neisseria gonorrhoeae PCR Negative Negative LAB MOLECULAR DIAGNOSTICS METHOD 06/18/2024 2:08 PM EST [facility] Chlamydia trachomatis PCR Negative Negative LAB MOLECULAR DIAGNOSTICS METHOD 06/18/2024 2:08 PM EST [facility] Swab Vaginal structure / Unknown Non-blood Collection / Unknown 06/17/2024 9:56 AM EST 06/17/2024 9:57 AM EST us Jackie TORREZ LAB MICROBIOLOGY - GENERAL O RDERABLES Final Result Performing Organization Address City/[facility]/ZIP Co de Phone Number [facility] [address] [place] [address], [place] [phone] documented in this encounter Visit Diagnoses Diagnosis Encounter for [...] documented as of this encounter Care Teams Certified Nurses' Aide Relationship Specialty Start Date End Date Clara Vail MD [address] [facility] [place] [address] PCP - General Internal Medicine 09/11/17 documented as of this encounter
--- OUTSIDE RECORDS SUMMARY | 2024-06-27 11:36 | XMS_ITS | Clinical Summary ---
Author Organization [facility] Address [address] [place] [phone] Phone Care Team Providers Care Ship Yard Electrical Person Name Role Phone Unavailable Primary Care Provider [...]
== END 2024-06-27 11:26 | disposition home or self-care (01) ==
PROVIDERS: PCP Internal Medicine; Visit Provider Internal Medicine
DX: D51.8 Other vitamin B12 deficiency anemias (principal)

== ENCOUNTER → 2024-06-27 10:22 | Outpatient (BNVA) | payer OTHER, SELFPAY | PROVIDERS: PCP Internal Medicine; Visit Provider Internal Medicine | DX: D51.8 Other vitamin B12 deficiency anemias (principal) | CPT/HCPCS: 96372; J3420 ==

== ENCOUNTER 2024-07-28 10:32 | Outpatient (AMB) | payer OTHER, SELFPAY ==
--- NOTE | 2024-07-28 10:49 | AM.OFFVISNUR ---
Intake Visit Reasons: Vitamin B12 injection Allergies Seasonal Allergies Allergy (Intermediate, Verified 03/31/24 11:40) rhinorrhea Nursing Note Pt ambulated (I) to the room. Administered Vitamin B12 to left deltoid. Pt tolerated well. Office Meds cyanocobalamin (vitamin B-12) 1,000 mcg/mL injection solution Performing Provider: Clara Vail MD Performing Location[place] [facility] Administered by: Jenny Ortiz on 07/28/24 10:49 Dose Route Admin Location Dispensed Lot Number Expiration Date [facility] W[employer] 1,000 mcg IM left deltoid 1 mL [id number] 01/10/26 94045-718-41 Tap[employer]ap Assessment & Plan Assessment & Plan Orders: Orders AMB Vitamin B12 Injection Patient Supplied Today D51.8 - Other vitamin B12 deficiency anemias Medications: New cyanocobalamin (vitamin B-12) 1,000 mcg IM ONCE 1 mL 0RF D51.8 - Other vitamin B12 deficiency anemias Coding
--- OUTSIDE RECORDS SUMMARY | 2024-07-28 12:26 | XMS_ITS | Clinical Summary ---
Author Organization [facility] Address [address] [place] [address] Phone Care Team Providers Care Classifications Officer Cc/Cm Name Role Phone Unavailable Primary Care Provider [...]
--- OUTSIDE RECORDS SUMMARY | 2024-07-28 12:26 | XMS_ITS | Clinical Summary ---
Author Organization [address] Address [address] [place] [phone] Phone Care Team Providers Care Cotton Tier Name Role Phone Clara Vail MD Primary Care Provider Allergies Active Allergy Reactions Criticality Noted Date Comments Cat Dander 01/29/2018 Medications mometasone (ELOCON) 0.1 % ointment Apply half a fingertip amount to the vulva nightly x4 weeks then twice weekly thereafter 08/28/19 24 Active multivitamin with iron (DAILY MULTIPLE VITAMINS/IRON ORAL) Take by mouth. Activ e cetirizine HCl (ZYRTEC ORAL) Take by mouth. A ctive etonogestreL-e thinyl estradioL (NUVARING) 0.12-0.015 mg/24 hr vaginal ring Insert 1 each into the vagina every 28 (twenty-eight) days. Insert 1 vaginal ring x3 consecutive weeks, remove x1 week for menses then repeat 12 each 06/17/19 25 026 Active cyanocobalamin (VITAMIN B-12) 1,000 mcg/mL injection INJECT 1ML INTRAMUSCULARLY EVERY 4 WEEKS FOR 13 WEEKS 06/27/19 25 Active ferrous sulfate 325 mg (65 mg elemental iron) tablet Take 1 tablet (325 mg total) by mouth 1 (one) time each day. 06/27/19 25 Active fluticasone propionate (FLONASE) 50 mcg/actuation nasal spray Active ketoconazole (NIZORAL) 2 % cream Active loratadine (CLARITIN) 10 mg tablet Active montelukast (SINGULAIR) 10 mg tablet Active valACYclovir (VALTREX) 1 gram tablet Active clotrimazole-b etamethasone (LOTRISONE) 1-0.05 % cream Apply topically 2 (two) times a day for 7 days. 30 g 07/24/19 25 025 Active valACYclovir (Valtrex) 1 gram tabletIndicati ons:genital herpes simplex Take 1 tablet (1,000 mg total) by mouth 2 (two) times a day for 3 days. 6 each 07/24/19 25 025 Encounters Date Type Department Care Team Description 07/23/2024 11:30 AM EDT Office Visit Obstetrics & Gynecology - [address] [phone] Carmina Salazar CNM Acute vaginitis (Primary Dx); Vaginal odor 06/17/2024 9:20 AM EST Office Visit Obstetrics and Gynecology [address] [phone] Jackie Quiroz, PA Encounter for gynecological examination (general) (routine) with abnormal findings (Primary Dx); Menorrhagia with regular cycle; Screen for STD (sexually transmitted disease) from Last 3 Months Immunizations Name Administration Dates Next Due DTP 11/02/1992, 0,01/02/1989,1988,1988 Hepatitis B Pediatric (Enger ix B; Recombivax HB) to less than 20 yo 01/12/2000,07/23/1998 HiB PRP-T conjugate (Acthib, Hiberix) 6wks and older 08/20/1989 Influenza Quadravalent, MDCK , 0.5ml, preservative free (Flucelvax) 6mo and older 05/19/2022 Influenza Quadrivalent, 0.5m l, preservative free (Fluarix; FluLaval; Fluzone) ages 6mo and older (Afluria) 3yo and older 12/31/2020 MMR, measles mumps and rubel la Live (Priorix; M-M-R II) 12mo and older 07/23/1998,01/17/1990,05/19/1989 Moderna SARS-CoV-2 COVID-19, mRNA, LNP-S, preservative free 09/01/2020,08/04/2020 OPV 11/02/1992, 0,1988,1988 Td Tetanus diptheria (Tdvax) 7yo and older 01/12/2000 Tdap Tetanus diptheria acell ular pertussis (Boostrix; Adacel) 7yo and older 06/22/2015 Surgical History Surgery Date Site/Laterality Comments FOOT SURGERY PROCEDURE: ME UNLISTED PROCEDURE FOOT/TOES Medical History Medical History [...] Date Smoking Tobacco: Never Smokeless Tobacco: Never Tobacco Cessation:Counseling Given: Not Answered Alcohol Use Standard Drinks/Week Comments Not Currently [...] PTL Michelle A1 A5 Name Clin 2007 SAB 2008 Term 40w 5d 2863 g (101 oz) F Vag-S pont Epidur al N Livin g [address] Sheehan Complications: aspir ation syndrome Delivery Location:[facility] 2013 Term 37w 4d 2892 g (102 oz) M Vag-S pont Maninder Stone Complications:None Delivery Location:[facility] 2015 SAB 2015 Term 37w 2d 2920 g (103 oz) M Vag-S pont Maninder Stone Complications:Herpes simplex type 2 infection Delivery Location:[facility] Last Filed Vital Signs Vital Sign Reading Time Taken Comments Blood Pressure 118/85 07/23/2024 11:41 AM EDT Pulse 74 07/23/2024 11:41 AM EDT Temperature - - Respiratory Rate 14 06/17/2024 9:28 AM EST Oxygen Saturation - - Inhaled Oxygen Concentration - - Weight 77 kg (169 lb 12.8 oz) 07/23/2024 11:41 A M EDT Height 157.5 cm (5' 2 ) 07/23/2024 11:41 AM EDT Body Mass Index 31.06 07/23/2024 11:41 AM EDT Plan of Treatment Health Maintenance Due Date Last Done Comments Hepatitis B Vaccines (3 of 3 - 3-dose series) 03/08/2000 01/12/2000, 07/23/1998 Depression Screening 03/21/2022 Social Influencers of Health Screening 03/21/2022 COVID-19 Vaccine ( season) 2023 05/19/2022, 05/02/2021, 09/01/2020, Additional history exists Influenza Vaccine (Season Ended) 2024 05/19/2022, 12/31/2020 Cervical Cancer Screening: HPV 05/12/2025 05/12/2020 DTaP,Tdap,and [...] Associated Diagnosis Comments TRICHOMONAS VAGINALIS ANTIGEN Routine 07/23/2024 11:53 AM EDT Acute vaginitis WET PREP, GENITAL Routine 07/23/2024 11: 53 AM EDT Acute vaginitis HIV 1, 2 ANTIBODY, P24 ANTIGEN WITH [...] Recently Relevant to Health Maintenance Results * Trichomonas vaginalis antigen (07/23/2024 11:53 AM EDT) Only the most recent of2 resultswithin the time period is included. Trichomonas vaginalis Negative Negative 07/23/2024 1:29 PM EDT [facility] Swab Vaginal structure / Unknown Non-blood Collection / Unknown 07/23/2024 11:53 AM EDT 07/23/2024 12:03 PM EDT [facility] MICROBIOLOGY - GENERAL OR DERABLES Final Result [facility] [address] [place] [address], * Wet prep, genital (07/23/2024 11:53 AM EDT) Only the most recent of2 resultswithin the time period is included. Clue Cells, Wet Prep Negative Negative 07/23/2024 1:05 PM EDT [facility] Yeast, Wet Prep Negative Negative 07/23/2024 1:05 PM EDT [facility] Trichomonas, Wet Prep Indeterminate Negative 07/23/2024 1:05 PM EDT [facility] Comment:Refer to Trichomonas antigen. Swab Vaginal structure / Unknown Non-blood Collection / Unknown 07/23/2024 11:53 AM EDT 07/23/2024 12:03 PM EDT [facility] MICROBIOLOGY - GENERAL OR DERABLES Final Result [facility] [address] [place] [address], * Hepatitis C antibody (06/17/2024 11:12 AM EST) Hepatitis C Antibody Negative Negative LAB CHEMISTRY METHOD 06/17/2024 4:07 PM EST [facility] Blood Venous blood specimen / Unknown Venipuncture / Unknown 06/17/2024 11:12 AM EST 06/17/2024 11:12 AM EST Jackie TORREZ LAB BLOOD ORDERABLES Final R esult [facility] [address] [place] [address], [place] [phone] * HIV 1,2 antibody, p24 antigen with reflex to differentiation (06/17/2024 11:12 AM EST) HIV Combo AB/AG Negative Negative LAB CHEMISTRY METHOD 06/17/2024 3:07 PM EST [facility] Blood Venous blood specimen / Unknown Venipuncture / Unknown 06/17/2024 11:12 AM EST 06/17/2024 11:12 AM EST Narrative [facility] - 06/17/2024 3:07 PM EST This assay is a 4th generation assay allowing for earlier detection of HIV infection by detecting the presence of the HIV-1 p24 antigen as well as the traditional antibodies to HIV type 1 (including group O) and type 2. ??Use of a 4th generation assay is the current CDC recommendation for HIV screening. Jackie TORREZ LAB BLOOD ORDERABLES Final R esult Performing Organization Address City/[facility]/ZIP Co de Phone Number [facility] [address] [place] [address], [place] [phone] * Treponema pallidum antibody with reflex to RPR and particle agglutination (06/17/2024 11:12 AM EST) T. Pallidum Antibodies Negative Negative LAB CHEMISTRY METHOD 06/17/2024 2:38 PM EST [facility] Blood Venous blood specimen / Unknown Venipuncture / Unknown 06/17/2024 11:12 AM EST 06/17/2024 11:12 AM EST Jackie TORREZ LAB BLOOD ORDERABLES Final R esult [facility] [address] [place] [address], [place] [phone] * Chlamydia trachomatis and Neisseria gonorrhoeae molecular study (06/17/2024 9:56 AM EST) [facility] Neisseria gonorrhoeae PCR Negative Negative LAB MOLECULAR DIAGNOSTICS METHOD 06/18/2024 2:08 PM EST [facility] Chlamydia trachomatis PCR Negative Negative LAB MOLECULAR DIAGNOSTICS METHOD 06/18/2024 2:08 PM EST [facility] Swab Vaginal structure / Unknown Non-blood Collection / Unknown 06/17/2024 9:56 AM EST 06/17/2024 9:57 AM EST Jackie TORREZ LAB MICROBIOLOGY - GENERAL O RDERABLES Final Result [facility] [address] [place] [address], [place] [phone] * Cervical Cancer Screening: HPV (05/12/2020) [facility] Cervical Cancer Screening: HPV Negative, Abstracted Historical Provider HEALTH MAINTENANCE Final Result from Last 3 Months or Most Recently Relevant to Health Maintenance Insurance [employer] Care Teams Cotton Tier Relationship Specialty Start Date End Date Clara Vail MD [address] [place] [address] PCP - General Internal Medicine 09/11/17
--- OUTSIDE RECORDS SUMMARY | 2024-07-28 12:26 | XMS_ITS | Encounter Summary ---
Author Organization [facility] Address [id number] [place] [address] Care Team Providers Care Tiller Man Name Role Phone Clara Vail MD Primary Care Provider Reason for Visit * Reason Comments Vaginal/vulvar Complaint Encounter Details Date Type Department Care Team (Late st Contact Info) Description 07/23/2024 11:30 AM EDT Office Visit Obstetrics & Gynecology - [address] [phone] Marie Carmina, [facility] [address] [place] [id number] Acute vaginitis (Primary Dx); Vaginal odor Social History Tobacco Use Types Packs/Day Years [...] Mass Index 31.06 07/23/2024 11:41 AM EDT documented in this encounter Ordered Prescriptions Prescription Sig Dispense Quantity Refills Last Filled Start Date End Date clotrimazole-betam ethasone (LOTRISONE) 1-0.05 % cream Apply topically 2 (two) times a day for 7 days. 30 g 07/23/2024 5 valACYclovir (Valtrex) 1 gram tabletIndications: genital herpes simplex Take 1 tablet (1,000 mg total) by mouth 2 (two) times a day for 3 days. 6 each 07/23/2024 5 documented in this encounter Progress Notes * Mickey Tse MA - 07/23/2024 11:30 AM EDT Pt here c/o yeast symptoms * Carmina Salazar CNM - 07/23/2024 11:30 AM EDT Chief Complaint Patient presents with Vaginal/vulvar Complaint Марина Reed 1990 34 y.o. Pt presents with concerns for the past 1 week. She was treated for asymptomatic vag tay 06/17/24 . She now describes vulvar irritation: Yes Discharge color: yellow, odor: unsure Any recent antibiotics None Any new detergents /soaps : None Last intercourse within the past week, no new partner Contraception : Nuvaring Has tried otc relief measures None, + Hx HSV- she does reports vulvar sore few weeks ago, resolved spontaneously ROS GENERAL: No malaise, significant weight loss or fever RESPIRATORY: No cough, wheezing or shortness of breath CARDIOVASCULAR: No chest pain, leg swelling or palpitations GI: No abdominal discomfort, blood in stools or black stools/ negative for change in bowel habits. : No dysuria, frequency or incontinence PROTECTIVE SERVICE SPECIALIST: See HPI MUSCULOSKELETAL: No joint pain or swelling, back pain, or muscle pain. SKIN: No lesions, rash or itching PSYCH: No sleep disturbance, mood disorder or recent psychosocial stressors. HEMATOLOGY/LYMPHOLOGY No prolonged bleeding, easy bruisability or swollen nodes Past Medical History: Diagnosis Date Anxiety DX:Anxiety Bacterial vaginosis 07/06/2015 DX:Bacterial vaginosis; COMMENT: 12/22/14, 12/26/13, 11/12/12 History of anemia 03/21/2016 DX:History of anemia; COMMENT: H & H 9.4 / 30.4 History of chlamydia 05/26/2008 DX:History of chlamydia History of vitamin D deficiency 03/21/2016 DX:History of vitamin D deficiency; COMMENT: Vitamin D = 8 HSV-2 infection DX:HSV-2 infection Migraines DX:Migraines; COMMENT: without aura Vaginal yeast infection 03/16/2015 DX:Vaginal yeast infection; COMMENT: 06/03/13, 04/28/13 Past Surgical History: Procedure Laterality Date FOOT SURGERY PROCEDURE: [place] UNLISTED PROCEDURE FOOT/TOES OB History Para Term AB Living 5 3 3 0 2 3 SAB IAB Ectopic Multiple Live Births 2 0 0 0 3 # Outcome Date GA Lbr Dave/2nd Weight Sex Type Anes PTL Lv 5 Term 07/30/15 37w2d 2920 g (103 oz) M Vag-Spont EPI N FIDEL Complications: Herpes simplex type 2 infection 4 2014 3 Term 06/18/13 37w4d 2892 g (102 oz) M Vag-Spont EPI N FIDEL 2 Term 01/19/09 40w5d 2863 g (101 oz) F Vag-Spont EPI N FIDEL Complications: aspiration syndrome 1 2007 OBJECTIVE Visit Vitals BP 118/85 Pulse 74 Ht 1.575 m (62 ) Wt 77 kg (169 lb 12.8 oz) LMP 06/25/2024 BMI 31.06 kg/m?? OB Status Having periods Smoking Status Never BSA 1.78 m?? APPEARANCE: Alert and in no acute distress, healthy, cooperative LUNG: Assessment: No increased work of breathing or signs of respiratory distress ABDOMEN: soft, non-tender, without organomegaly or palpable masses LYMPHATICS: no inguinal adenopathy PROTECTIVE SERVICE SPECIALIST: External genitalia - erythema, no open lesions Normal urethra Vagina without abnormality ; + discharge scant white Normal cervix Bimanual deferred. RECTAL: without lesion, hemorrhoid, prolapse NEURO: Awake, alert and oriented x 3 SKIN: Skin color, texture, turgor normal. No rashes or lesions. This is to document that Марина Reed was given the opportunity to have a wind commissioning technician present during a sensitive examination at today's visit. She declines this offer of a wind commissioning technician. Acute vaginitis (Primary) - Wet prep, genital Vaginal odor Other orders - clotrimazole-betamethasone (LOTRISONE) 1-0.05 % cream; Apply topically 2 (two) times a day for 7 days. Dispense: 30 g; Refill: 0 - valACYclovir (Valtrex) 1 gram tablet; Take 1 tablet (1,000 mg total) by mouth 2 (two) times a dayfor 3 days. Dispense: 6 each; Refill: 0 Possible resolving or hsv outbreak, though no active lesions noted, will treat prophylactically Discussed vaginal hygiene, loose cotton undergarments, avoidance of deodorants and sprays, colored or scented tissue, harsh soaps, etc. Added to AVS use of Probiotics such as AZOs, Acidophilous, Yogurt with lactobacilli, RepHresh, Replens , Re-Balance by Shae which have been shown to promote vaginal health. Pending results will adjust treatment as needed. Carmina Salazar CNM Note about provider documentation: If you are the patient named in this chart and are reviewing your medical notes, please note that medical documentation is often written with abbreviations and medical terminology, and directed for other providers who may be involved in your care as well. Documentation is critical to record what has happened, what test were ordered, and how they are interpreted w ith the resulting diagnoses. These notes have been made available for patient review but not specifically written for the patient. Important health information is always given to my patients and clinical instructions. Please review your after visit summary and/or contact our clinical staff if you have any questions. documented in this encounter Plan of Treatment Not on file documented as of this encounter Procedures Procedure Name Priority Date/Time Associated Diagnosis Comments TRICHOMONAS VAGINALIS ANTIGEN Routine 07/23/2024 11:53 AM EDT Acute vaginitis WET PREP, GENITAL Routine 07/23/2024 11: 53 AM EDT Acute vaginitis documented in this encounter Results * Trichomonas vaginalis antigen (07/23/2024 11:53 AM EDT) Trichomonas vaginalis Negative Negative 07/23/2024 1:29 PM EDT [facility] ([facility]) [facility] Swab Vaginal structure / Unknown Non-blood Collection / Unknown 07/23/2024 11:53 AM EDT 07/23/2024 12:03 PM EDT Carmina Salazar [facility] MICROBIOLOGY - GENERAL OR DERABLES Final Result Performing Organization Address [facility]/ZIP Co de Phone Number [facility] [address] [place] [address], * Wet prep, genital (07/23/2024 11:53 AM EDT) Clue Cells, Wet Prep Negative Negative 07/23/2024 1:05 PM EDT [facility] Yeast, Wet Prep Negative Negative 07/23/2024 1:05 PM EDT [facility] Trichomonas, Wet Prep Indeterminate Negative 07/23/2024 1:05 PM EDT [facility] Comment:Refer to Trichomonas antigen. Swab Vaginal structure / Unknown Non-blood Collection / Unknown 07/23/2024 11:53 AM EDT 07/23/2024 12:03 PM EDT Carmina Salazar [facility] MICROBIOLOGY - GENERAL OR DERABLES Final Result Performing Organization Address [facility] de Phone Number [facility] [address] [place] [address], documented in this encounter Visit Diagnoses Diagnosis Acute vaginitis- Primary Unspecified vaginitis and vulvovaginitis Vaginal odor Unspecified symptom associated with female genital organs documented in this encounter Historical Medications * This list may reflect changes made after this encounter. valACYclovir (VALTREX) 1 gram tablet montelukast (SINGULAIR) 10 mg tablet loratadine (CLARITIN) 10 mg tablet ketoconazole (NIZORAL) 2 % cream fluticasone propionate (FLONASE) 50 mcg/actuation nasal spray ferrous sulfate 325 mg (65 mg elemental iron) tablet Take 1 tablet (325 mg total) by mouth 1 (one) time each day. 06/26/2024 cyanocobalamin (VITAMIN B-12) 1,000 mcg/mL injection INJECT 1ML INTRAMUSCULARLY EVERY 4 WEEKS FOR 13 WEEKS 06/26/2024 added in this encounter Care Teams Tiller Man Relationship Specialty Start Date End Date Clara Vail MD [address] [place] [address] PCP - General Internal Medicine 09/11/17 documented as of this encounter
== END 2024-07-28 10:47 | disposition home or self-care (01) ==
LOC: HO.HMCC 10:33
PROVIDERS: PCP Internal Medicine; Visit Provider Internal Medicine
DX: D51.8 Other vitamin B12 deficiency anemias (principal)

== ENCOUNTER → 2024-07-28 10:32 | Outpatient (BNVA) | payer OTHER, SELFPAY | PROVIDERS: PCP Internal Medicine; Visit Provider Internal Medicine | DX: D51.8 Other vitamin B12 deficiency anemias (principal) | CPT/HCPCS: 96372; J3420 ==

== ENCOUNTER 2024-08-01 08:48 | Outpatient (REF) | payer OTHER, SELFPAY ==
--- NOTE | ~2024-08-01 | XR_ITS ---
EXAMINATION: XR CHEST CLINICAL INFORMATION: R07.9 - Chest pain, unspecified; left-sided mid chest/rib pain. COMPARISON: None available. TECHNIQUE: 2 views of the chest were obtained. FINDINGS: The cardiac, hilar, and mediastinal contours are normal. The lungs are clear bilaterally. There is no pneumothorax or pleural effusion. There is no focal osseous or soft tissue abnormality. Ribs are intact. XR/XR chest 2V IMPRESSION: Normal chest. Electronically signed by: Robbie Casas MD 08/01/2024 10:32 AM EDT
--- OUTSIDE RECORDS SUMMARY | 2024-08-01 10:12 | XMS_ITS | Clinical Summary ---
Author Organization [facility] Address [address] [place] [address] Phone Care Team Providers Care Loan Servicing Specialist Name Role Phone Unavailable Primary Care Provider [...]
--- OUTSIDE RECORDS SUMMARY | 2024-08-01 10:13 | XMS_ITS | Clinical Summary ---
Author Organization [address] Address [address] [place] [phone] Phone Care Team Providers Care Upscale Security Officer Name Role Phone Clara Vail MD Primary Care Provider [phone] Allergies Active Allergy Reactions Criticality Noted Date [...] AM EDT Office Visit Obstetrics & Gynecology [address] [phone] Carmina Salazar CNM Acute vaginitis (Primary Dx); Vaginal odor 06/17/2024 9:20 AM EST Office Visit Obstetrics and Gynecology [address] [phone] Jackie Quiroz, PA Encounter for gynecological examination [...] Surgery Date Site/Laterality Comments FOOT SURGERY PROCEDURE: CO UNLISTED PROCEDURE FOOT/TOES Medical History Medical History [...] Dr Sheehan Complications: aspir ation syndrome Delivery Location:[facility] 2013 Term 37w 4d 2892 g (102 oz) M Vag-S pont Maninder Stone Complications:None Delivery Location:[facility] 2015 SAB 2015 Term 37w 2d 2920 g (103 oz) M Vag-S pont Maninder Stone Complications:Herpes simplex type 2 infection Delivery Location:[facility] Last Filed Vital Signs Vital Sign [...] vaginalis Negative Negative 07/23/2024 1:29 PM EDT [facility] Swab Vaginal structure / Unknown Non-blood Collection / Unknown 07/23/2024 11:53 AM EDT 07/23/2024 12:03 PM EDT [facility] MICROBIOLOGY - GENERAL OR DERABLES Final Result [facility] [address] [place] [address], * Wet prep, genital (07/23/2024 11:53 AM EDT) Only the most recent of2 resultswithin the time period is included. Clue Cells, Wet Prep Negative Negative 07/23/2024 1:05 PM EDT [facility] Yeast, Wet Prep Negative Negative 07/23/2024 1:05 PM EDT [facility] Trichomonas, Wet Prep Indeterminate Negative 07/23/2024 1:05 PM EDT [facility] Comment:Refer to Trichomonas antigen. Swab Vaginal structure / Unknown Non-blood Collection / Unknown 07/23/2024 11:53 AM EDT 07/23/2024 12:03 PM EDT [facility] MICROBIOLOGY - GENERAL OR DERABLES Final Result [facility] [address] [place] [address], * Hepatitis C antibody (06/17/2024 11:12 AM EST) Hepatitis C Antibody Negative Negative LAB CHEMISTRY METHOD 06/17/2024 4:07 PM EST [facility] Blood Venous blood specimen / Unknown Venipuncture / Unknown 06/17/2024 11:12 AM EST 06/17/2024 11:12 AM EST Jackie TORREZ LAB BLOOD ORDERABLES Final R esult [facility] [address] [place] [address], [place] [phone] * HIV 1,2 antibody, p24 antigen with reflex to differentiation (06/17/2024 11:12 AM EST) HIV Combo AB/AG Negative Negative LAB CHEMISTRY METHOD 06/17/2024 3:07 PM EST [facility] Blood Venous blood specimen / Unknown Venipuncture / Unknown 06/17/2024 11:12 AM EST 06/17/2024 11:12 AM EST Narrative [facility] - 06/17/2024 3:07 PM [...] ORDERABLES Final R esult Performing Organization Address City/[facility]/ZIP Co de Phone Number [facility] [address] [place] [address], [place] [phone] * Treponema pallidum antibody with reflex to RPR and particle agglutination (06/17/2024 11:12 AM EST) T. Pallidum Antibodies Negative Negative LAB CHEMISTRY METHOD 06/17/2024 2:38 PM EST [facility] Blood Venous blood specimen / Unknown Venipuncture / Unknown 06/17/2024 11:12 AM EST 06/17/2024 11:12 AM EST Jackie TORREZ LAB BLOOD ORDERABLES Final R esult [facility] [address] [place] [address], [place] [phone] * Chlamydia trachomatis and Neisseria gonorrhoeae molecular study (06/17/2024 9:56 AM EST) [facility] Neisseria gonorrhoeae PCR Negative Negative LAB MOLECULAR DIAGNOSTICS METHOD 06/18/2024 2:08 PM EST [facility] Chlamydia trachomatis PCR Negative Negative LAB MOLECULAR DIAGNOSTICS METHOD 06/18/2024 2:08 PM EST [facility] Swab Vaginal structure / Unknown Non-blood Collection / Unknown 06/17/2024 9:56 AM EST 06/17/2024 9:57 AM EST Jackie TORREZ LAB MICROBIOLOGY - GENERAL O RDERABLES Final Result [facility] [address] [place] [address], [place] [phone] * Cervical Cancer Screening: HPV (05/12/2020) [facility] Cervical Cancer Screening: HPV Negative, Abstracted Historical Provider HEALTH MAINTENANCE Final Result from Last 3 Months or Most Recently Relevant to Health Maintenance Insurance [facility] [place] [phone] Care Teams Upscale Security Officer Relationship Specialty Start Date End Date Clara Vail MD [address] [facility] [place] [address] PCP - General Internal Medicine 09/11/17
== END 2024-08-01 08:49 | disposition home or self-care (01) ==
LOC: HO.HMGCX 08:48
PROVIDERS: PCP Internal Medicine; Visit Provider Nurse Practitioner Family
DX: R07.9 Chest pain, unspecified (principal)
CPT/HCPCS: 71046

== ENCOUNTER 2024-08-01 08:48 | Outpatient (AMB) | payer OTHER, SELFPAY ==
--- OUTSIDE RECORDS SUMMARY | 2024-08-01 08:57 | XMS_ITS | Clinical Summary ---
Author Organization [facility] Address [address] [place] [address] Phone Care Team Providers Care Ad Trafficker Name Role Phone Unavailable Primary Care Provider [...]
--- OUTSIDE RECORDS SUMMARY | 2024-08-01 08:57 | XMS_ITS | Clinical Summary ---
Author Organization [address] Address [address] [place] [phone] Phone Care Team Providers Care Research Laboratory Manager Name Role Phone Clara Vail MD Primary Care Provider [phone] Allergies Active Allergy Reactions Criticality Noted Date [...] 7 days. 30 g 07/24/19 25 025 valACYclovir (Valtrex) 1 gram tabletIndicati ons:genital herpes simplex Take 1 tablet (1,000 mg total) by mouth 2 (two) times a day for 3 days. 6 each 07/24/19 25 025 Encounters Date Type Department Care Team Description 07/23/2024 11:30 AM EDT Office Visit Obstetrics & Gynecology [address] [phone] Carmina Salazar CNM Acute vaginitis (Primary Dx); Vaginal odor 06/17/2024 9:20 AM EST Office Visit Obstetrics and Gynecology [address] [address] Jackie Quiroz, PA Encounter for gynecological examination [...] Surgery Date Site/Laterality Comments FOOT SURGERY PROCEDURE: [place] UNLISTED PROCEDURE FOOT/TOES Medical History Medical History [...] Dr Sheehan Complications: aspir ation syndrome Delivery Location:[facility] 2013 Term 37w 4d 2892 g (102 oz) M Vag-S pont Maninder Stone Complications:None Delivery Location:[facility] 2015 SAB 2015 Term 37w 2d 2920 g (103 oz) M Vag-S pont Maninder Stone Complications:Herpes simplex type 2 infection Delivery Location:[facility] Last Filed Vital Signs Vital Sign Reading [...] age to complete this topic Meningococcal B Vaccine Aged Out No l onger eligible based on patient's age to complete [...] 11:53 AM EDT 07/23/2024 12:03 PM EDT [facility] MICROBIOLOGY - GENERAL OR DERABLES Final Result [facility] [address] [place] [address], * Wet prep, genital (07/23/2024 11:53 AM [...] 11:53 AM EDT 07/23/2024 12:03 PM EDT [facility] MICROBIOLOGY - GENERAL OR DERABLES Final Result [facility] [address] [place] [address], * Hepatitis C antibody (06/17/2024 11:12 AM EST) Hepatitis C Antibody Negative Negative LAB CHEMISTRY METHOD 06/17/2024 4:07 PM EST [facility] Blood Venous blood specimen / Unknown Venipuncture / Unknown 06/17/2024 11:12 AM EST 06/17/2024 11:12 AM EST Jackie TORREZ LAB BLOOD ORDERABLES Final R esult [facility] [address] [place] [address], [place] [phone] * HIV 1,2 antibody, p24 antigen with [...] ORDERABLES Final R esult Performing Organization Address City/[facility]/ZIP Co de Phone Number [facility] [address] [place] [address], [place] [phone] * Treponema pallidum antibody with reflex to RPR and particle agglutination (06/17/2024 11:12 AM EST) T. Pallidum Antibodies Negative Negative LAB CHEMISTRY METHOD 06/17/2024 2:38 PM EST [facility] Blood Venous blood specimen / Unknown Venipuncture / Unknown 06/17/2024 11:12 AM EST 06/17/2024 11:12 AM EST Jackie TORREZ LAB BLOOD ORDERABLES Final R esult [facility] [address] [place] [address], [place] [phone] * Chlamydia trachomatis and Neisseria gonorrhoeae molecular study (06/17/2024 9:56 AM EST) [facility] Neisseria gonorrhoeae PCR Negative Negative LAB MOLECULAR [...] Final Result [facility] [address] [place] [address], [place] [phone] * Cervical Cancer Screening: HPV (05/12/2020) [facility] Cervical Cancer Screening: HPV Negative, Abstracted Historical Provider HEALTH MAINTENANCE Final Result from Last 3 Months or Most Recently Relevant to Health Maintenance Insurance [employer] Care Teams Research Laboratory Manager Relationship Specialty Start Date End Date Clara Vail MD [address] [facility] [place] [address] PCP - General Internal Medicine 09/11/17
--- OUTSIDE RECORDS SUMMARY | 2024-08-01 08:57 | XMS_ITS | Data Portability ---
Author Organization [place] - [facility] Address [address] [place] [address] Care Team Providers Care Quality And Reliability Engineer Name Role Phone ALEXUS EDMONDS Primary Care Provider [phone] Assessment Encounter Date Assessment Date Assessment LastModified by Organization Details LastModified Time 03/24/2018 03/24/2018 .Overview/Histor y: Pt is 28 y/o F with pmhx of Asthma, Seasonal Allergies new to [facility] who we are called to evaluate [...] for prescriptions to be called in to [facility] pharmacy for Albuterol ProAir Inhaler, Flonase [...] instructions. Time On Scene with Patient: 00:33:49 [email or web address] Not available 03/24/2018 13:35:48 05/14/2018 05/14/2018 Overview/History [...] I have accessed patient records on the [employer]. This information was pertinent in [...] Peritonsillar abscess - no clinical signs of AUTOMOTIVE PROJECT ENGINEER. Viral illness Strep pharyngitis- likely given exam [...] recorded. Lab rapid flu (A+B) 2018 019 [email or web address] [facility], [address] [place] [address], [phone], 9 21:41:30 Referral None recorded. Procedures None recorded. Surgeries None recorded. Imaging None recorded. Medication Orders Augmentin 875 mg-125 mg tablet 2018 019 INTERFACE [id number], [address] [place], [address], 9 17:24:47 fluconazol e 150 mg tablet 2018 019 INTERFACE [id number], [address] [place], [address], 9 17:24:47 cephalexin 500 mg capsule 2018 019 [email or web address] [facility], [address] [place], [address], 9 11:27:36 Diflucan 150 mg tablet 2018 019 INTERFACE [id number], [address] [place], [address], 9 11:29:08 Keflex 500 mg capsule 2018 019 INTERFACE [facility], [address] [place], [address], 9 11:29:08 acetaminop hen 325 mg tablet 2018 019 [email or web address] Not available 9 08:06:15 ibuprofen 200 mg tablet 2018 019 [email or web address] Not available 9 08:06:15 Motrin IB 200 mg tablet 2018 019 INTERFACE [facility], [address] [place], [address], 9 21:45:34 prednisone 10 mg tablet 2017 018 [facility], [address] [place], [address], 9 21:24:15 albuterol sulfate concentrat e 2.5 mg/0.5 mL solution for nebulizati on 2017 018 9 [facility], [address] [place], [address], 8 10:44:46 Patient TargetsNo targets recorded. Patient Instructions Encounter Date Encounter Id Patient Instructions Last Modified By Organization Details Last Modified Time 03/24/2018 [id number] --You were seen today for cough, ST, [...] in your condition between 8am-10pm, [facility] at [phone] to help navigate your care. [email or web address] Not available 03/24/2018 10:50:27 05/14/2018 [id number] influenza (flu): care instructions Not available 05/14/2018 21:39:07 07/21/2018 [id number] strep throat: ca re instructions Not available 07/21/2018 11:30:18 03/22/2019 [id number] Thank you for yo ur visit with [facility]. We cannot always find the exact cause of your symptoms during your initial visit. Please follow up with your primary care provider or specialist as needed to be rechecked or seek medical attention if your symptoms do not go away or get worse. If you develop any new or worsening symptoms and need after hours care, please go to nearest ER and/or call 911. If you have additional concerns or develop a change in your condition between 8am-10pm, please call [facility] at [phone] to help navigate your care. [email or web address] Not available 03/22/2019 17:25:05 Reason for Referral None Reported. Results Created Date Observation Date Name Description Value Unit Range Abnormal Flag Note LastModifiedBy Organization Detail LastModifiedTime 05/14/19 19 05/14/2018 rapid flu (A+B) Flu A positi ve Not Available [facility] [address] [place], [address], 05/14/2018 21:34:38 05/14/19 19 05/14/2018 rapid flu (A+B) Flu B negati ve Not Available [facility] [address] [place], [address], 05/14/2018 21:34:38 Result Notes None recorded. Procedures Surgical History Date Name Laterality Status Provider Name and Address Organization Details Recorded Time 8 Nebulizer treatment - DH completed SHAN BRANNON [address], [place], [address], [place] [facility] 03/24/2018 10:59:58 Imaging Results [...] red on scene. Time administe red: 2144 active Not Available Not Available Not Avai [...] /min 124 mm[Hg] 64 mm[Hg] Not Available [facility] 9 17:14:25 Date Recorded Body temperature Heart rate Oxygen saturation Oxygen saturation in Arterial blood by Pulse oximetry Respiratory rate Systolic blood pressure Diastolic blood pressure Provider Name and Address Organization Details Last Updated DateTime 8 99.2 [degF] 80 /min 99 % 99 % 16 /min 120 mm[Hg] 90 mm[Hg] Not Available [facility] 8 10:18:12 Date Recorded Heart rate Body temperature Respiratory rate Oxygen saturation Oxygen saturation in Arterial blood by Pulse oximetry Systolic blood pressure Diastolic blood pressure Provider Name and Address Organization Details Last Updated DateTime 9 100 /min 100.6 [degF] 16 /min 99 % 99 % 110 mm[Hg] 66 mm[Hg] Not Available [facility] 9 21:26:05 Date Recorded Body temperature Oxygen saturation Oxygen saturation in Arterial blood by Pulse oximetry Heart rate Respiratory rate Systolic blood pressure Diastolic blood pressure Provider Name and Address Organization Details Last Updated DateTime 9 98.6 [degF] 99 % 99 % 75 /min 15 /min 112 mm[Hg] 60 mm[Hg] Not Available [facility] 9 11:24:19 Social History Question Answer Notes LastModified by Organizat ion Details LastModified Time Tobacco Smoking Status Never Smoker SHAN BRANNON [address], [place], [address], [place] [facility] 03/24/2018 10:01:29 What Was The Date Of [...] Diagnosis/Indication Diagnosis SNOMED-CT Code Diagnosis ICD10 Code Diagnosis Note [id number] SHAN BRANNON [facility] [address] [facility] [place] [address] 03/24/2018 09:37:53 03/26/2018 10:35:15 Exacerbation of intermittent asthma 269596909 J45.21 I have called in a prescripti on to your pharmacy for an Albuterol Inhaler. Please take 1-2 puffs every 4-6 hours as needed for cough, wheezing, chest tightness Dry cough 12711329 R05 Wheezing 24320825 R06.2 I have given you an albuterol nebulizer treatment today. This helps open up your airways and relax the muscles of the airways to help you breathe better. A side effect of this medication can be feeling jittery, elevated heart rate. This will resolve with time after completing the treatment. Viral sinusitis [id number] 9 B34.9 I have called in a prescripti on for Flonase to your pharmacy. This will help with your nasal congestion . 1 spray in each nostril twice daily while sick. Viral uppe r respiratory tract infection 942094457 J06.9 [id number] TEDDY KENDALL NP [facility] [address] [facility] [place] [address] 05/14/2018 21:19:34 05/18/2018 17:45:03 Cough 50351433 R05 Influenza caused by Influenza A virus 841839979 J09.X2 29051 TEDDY KENDALL NP [facility] [address] [facility] [place] [place] [address] 07/21/2018 11:19:51 07/23/2018 16:32:34 Acute pharyngitis 346329103 J02.9 [id number] SHAN RAMON [facility] [address] [facility] [address] 03/22/2019 17:13:02 03/25/2019 12:13:34 Sinusitis 06698735 J32.9 Otitis media 73365164 H6 6.92 Health Concerns Section Related Observation LastModified by Organization Detai ls LastModified Time None Recorded Concern Status LastModified by Organization Details LastModified Time None Recorded Advance Directives Directive None Recorded Payers Encounter Date Sequence Insurance Name Policy Number Policy Fajardo Covered Member ID Fajardo Member ID Guarantor Name 03/24/2018 2 [facility] [employer] - [employer] (HMO) [place] Марина Reed [id number] Марина Reed 03/24/2018 1 [facility] [employer] - [employer] (HMO) [employer] Марина Reed [id number] Марина Reed 05/14/2018 1 [facility] [employer] - [employer] (HMO) [employer] Марина Reed [id number] Марина Reed 07/21/2018 1 [facility] [employer] - [employer] (HMO) [employer] Марина Reed [id number] Марина Reed 03/22/2019 1 [facility] [employer] - [employer] (HMO) [place] Марина Reed [id number] Марина Reed Notes Date Note Type Note Provider Name and Address Organization Details Recorded Time 03/24/2018 text/html Pt is 28 y/o F with pmhx of Asthma, Seasonal Allergies new to [facility] who we are called to evaluate [...] chills, malaise, VILLALBA, dizziness, CP, n/v. SHAN BRANNON, [place], [address], [place] [facility] 03/24/2018 13:35:57 05/14/2018 text/html 28-year-old female who was noted this [facility] was evaluated with complaints of a cough, sinus congestion and myalgias, starting 4 days ago. The patient stated that I feel like I am dying . 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 She denies any neck pain, shortness of breath, chest pain, abdominal pain, dysuria, hematuria, vomiting, diarrhea or any rashes. TEDDY KENDALL NP [address], [place], [address], [place] [facility] 05/14/2018 22:44:24 07/21/2018 text/html 28-year-old female, who [...] nodes. TEDDY KENDALL NP [address], [place], [address], [place] [facility] 07/21/2018 11:51:01 03/22/2019 text/html Mrs. Reed is [...] much relief. SHAN RAMON [address], [place], [address], [place] [facility] 03/23/2019 04:45:11 OBGyn Episode No OBEpisode recorded.
[2024-08-01 09:17] VITALS: BP 138/82; PULSE 72; TEMP 36.9; O2SAT 95; BMI 31.5
--- NOTE | 2024-08-01 09:17 | MHC.OFFWIV ---
Intake Vital Signs 08/01/24 09:17 Height 5 ft 2 in Weight 172 lb BMI 31.5 BP 138/82 Blood Pressure Location Lt brachial Position Sitting Pulse 72 Pulse Source Pulse Oximeter Temp 98.4 F Temp Source Oral Pulse Oximetry (%) 95 Oxygen Delivery Method Room Air Intake Visit Reasons: EP pain under LT breast, SOB Intake Note: Pt presents to the office today for c/o pain under left breast, SOB, and chest tightness that started yesterday morning. Patient Tobacco Use Status: Never used Tobacco Allergies Seasonal Allergies Allergy (Intermediate, Verified 08/01/24 09:18) rhinorrhea HPI EP pain under LT breast, SOB HPI Details This is a 34-year-old female patient who presents to the walk-in clinic today with report of left-sided chest pain, underneath her left breast. This began yesterday, without any inciting event such as strenuous activity, exercise, lifting. She states that she has had some increased pain with deep breathing and intermittent shortness of breath. Denies any radiation of pain, denies any weakness, dizziness, palpitations. Denies any pain with touching area, and states it is more so from the inside . Denies breast pain or breast/nipple changes. Patient states her allergies were bad yesterday and she sneezed throughout the day. [facility] Medical History SOB (shortness of breath) Annual visit for general adult medical examination with abnormal findings History of COVID-19 Migraine Allergic rhinitis due to allergen Environmental allergies Vitamin B12 deficiency (dietary) anemia Iron deficiency anemia Vitamin D deficiency Surgical History History of bunionectomy of right great toe Family History Paternal Grandmother Diabetes mellitus Social History Household Members: Family and None Housing: Apartment Alcohol intake: never Patient Tobacco Use Status: Never used Tobacco e-Cigarette/Vaping Use: Never Used Second Hand Smoke Exposure: No service: No Current occupational status: employed Gender identity: Female Cognitive needs: No Hearing needs: No Vision needs: No Review of Systems Const All systems reviewed & are unremarkable except as noted in HPI and below Physical Exam Vital Signs: Last Vital Signs Temp 98.4 F 08/01/24 09:17 Pulse 72 08/01/24 09:17 BP 138/82 08/01/24 09:17 Pulse Ox 95 08/01/24 09:17 Oxygen Delivery Method Room Air 08/01/24 09:17 BMI result Body Mass Index 31.5 Const General: cooperative, healthy appearing, comfortable and no acute distress Nutritional Appearance: average body habitus Limitations: no limitations HEENT Head: Yes normal to inspection Ears: hearing grossly normal bilaterally General nose exam: Normal external nose present Neck Neck: Yes no lymphadenopathy Chest Chest palpation & inspection: normal inspection of the chest and normal palpation of entire chest wall Resp Effort & Inspection: normal respiratory effort and able to speak in complete sentences Auscultation: clear to auscultation bilaterally Cardio Rate: regular rate Rhythm: regular rhythm Heart sounds: S1 normal heart sound present and S2 normal heart sound present Skin General skin exam: no rashes or lesions noted Extrem General: Yes capillary refill normal and Yes no clubbing, cyanosis or edema Psych Appearance: grossly normal Mental Status: mental status grossly normal Speech and movement: Normal speech and movement present Assessment & Plan Assessment & Plan (1) Left-sided chest pain: Code(s): R07.9 - Chest pain, unspecified Plan: This is likely muscular in nature. Chest XR and EKG were normal. Patient had frequent coughing/sneezing yesterday due to allergies and may have a costochondritis. We discussed a trial of antiinflammatories and muscle relaxer at to see if this helps. We reviewed indications, use, possible side effects of medications. We also discussed that from the walk-in care standpoint, cardiac-related issues can not be definitively ruled out, and if symptoms persist or worsen, or new symptoms develop, she should go to the emergency department for full evaluation. She verbalizes understanding and agrees to plan. Orders: Orders XR chest 2V Today R07.9 - Chest pain, unspecified AMB EKG-In Office Today R07.9 - Chest pain, unspecified Coding Level of Care Code Est Pt Level 4 (88357) Diagnoses Left-sided chest pain R07.9
== END 2024-08-01 10:38 | disposition home or self-care (01) ==
PROVIDERS: PCP Internal Medicine; Visit Provider Nurse Practitioner Family
DX: R07.9 Chest pain, unspecified (principal)

== ENCOUNTER → 2024-08-01 09:45 | Outpatient (BNV) | payer OTHER, SELFPAY | PROVIDERS: PCP Internal Medicine; Visit Provider Radiology Diagnostic Radiology | DX: R07.9 Chest pain, unspecified (principal) | CPT/HCPCS: 71046 ==

== ENCOUNTER 2024-08-27 09:08 | Outpatient (AMB) | payer OTHER, SELFPAY ==
--- NOTE | 2024-08-27 09:39 | AM.OFFVISNUR ---
Intake Visit Reasons: B-12 shot Allergies Seasonal Allergies Allergy (Intermediate, Verified 08/01/24 09:18) rhinorrhea Nursing Note pt came in. Vitamin B12 injection to left deltoid. Pt tolerated well. Office Meds cyanocobalamin (vitamin B-12) 1,000 mcg/mL injection solution Performing Provider: Clara Vail MD Performing Location: [facility] Adult [facility] Administered by: Jenny Ortiz on 08/27/24 09:40 Dose Route Admin Location Dispensed Lot Number Expiration Date [facility] [employer] 1,000 mcg IM left deltoid 1 mL [id number] 01/10/26 [id number] [place] [facility] Assessment & Plan Assessment & Plan Orders: Orders AMB Vitamin B12 Injection Patient Supplied Today D51.8 - Other vitamin B12 deficiency anemias Medications: New cyanocobalamin (vitamin B-12) 1,000 mcg IM ONCE 1 mL 0RF D51.8 - Other vitamin B12 deficiency anemias Coding
--- OUTSIDE RECORDS SUMMARY | 2024-08-27 09:41 | XMS_ITS | Clinical Summary ---
Author Organization [address] Address [address] [place] [phone] Phone Care Team Providers Care Auditing Control Clerk Name Role Phone Clara Vail MD Primary [...] 7 days. 30 g 07/24/19 25 025 Encounters Date Type Department Care Team Description 07/23/2024 11:30 AM EDT Office Visit Obstetrics & Gynecology - [address] [phone] Carmina Salazar CNM Acute vaginitis (Primary Dx); Vaginal odor 06/17/2024 9:20 AM EST Office Visit Obstetrics and Gynecology [address] [phone] Jackie Quiroz, PA Encounter for gynecological examination [...] PTL Michelle A1 A5 Name Clin 2007 Term 40w 5d 2863 g (101 oz) F Vag-S pont Epidur al N Livin g [address] Sheehan Complications: aspir ation syndrome Delivery Location:[facility] 2013 Term 37w 4d 2892 g (102 oz) M Vag-S pont Epidur al N Livin g Dr Stone Complications:None Delivery Location:[facility] [address] [facility] 2015 Term 37w 2d 2920 g (103 oz) M Vag-S pont Epidur al N Livin g Dr Stone Complications:Herpes simplex type 2 infection Delivery Location:[facility] Last Filed Vital Signs Vital Sign Reading [...] vaginalis Negative Negative 07/23/2024 1:29 PM EDT [facility] Swab Vaginal structure / Unknown Non-blood Collection / Unknown 07/23/2024 11:53 AM EDT 07/23/2024 12:03 PM EDT Carmina Salazar [facility] MICROBIOLOGY - GENERAL OR DERABLES Final Result Performing Organization Address [facility]/ZIP Co de Phone Number [facility] [address] [place] [address], * Wet prep, genital (07/23/2024 11:53 AM EDT) Only the most recent of2 resultswithin the time period is included. Clue Cells, Wet Prep Negative Negative 07/23/2024 1:05 PM EDT [facility] Yeast, Wet Prep Negative Negative 07/23/2024 1:05 PM EDT [facility] Trichomonas, Wet Prep Indeterminate Negative 07/23/2024 1:05 PM EDT [facility] Comment:Refer to Trichomonas antigen. Swab Vaginal structure / Unknown Non-blood Collection / Unknown 07/23/2024 11:53 AM EDT 07/23/2024 12:03 PM EDT Carmina Salazar [facility] MICROBIOLOGY - GENERAL OR DERABLES Final Result Performing Organization Address City/[facility] de Phone Number [facility] [address] [place] [address], * Hepatitis C antibody (06/17/2024 11:12 AM EST) Hepatitis C Antibody Negative Negative LAB CHEMISTRY METHOD 06/17/2024 4:07 PM EST [facility] Blood Venous blood specimen / Unknown Venipuncture / Unknown 06/17/2024 11:12 AM EST 06/17/2024 11:12 AM EST Jackie TORREZ LAB BLOOD ORDERABLES Final R esult Performing Organization Address [facility] Co de Phone Number [facility] [address] [place] [address], [place] [phone] * HIV 1,2 antibody, p24 antigen with [...] ORDERABLES Final R esult Performing Organization Address [facility] de Phone Number [facility] [address] [place] [address], [place] [phone] * Treponema pallidum antibody with reflex to RPR and particle agglutination (06/17/2024 11:12 AM EST) Pathologist [facility] T. Pallidum Antibodies Negative Negative LAB CHEMISTRY METHOD 06/17/2024 2:38 PM EST [facility] Blood Venous blood specimen / Unknown Venipuncture / Unknown 06/17/2024 11:12 AM EST 06/17/2024 11:12 AM EST us Jackie TORREZ LAB BLOOD ORDERABLES Final R esult Performing Organization Address [facility]/ZIP Co de Phone Number [facility] [address] [place] [address], [place] [phone] * Chlamydia trachomatis and Neisseria gonorrhoeae molecular study (06/17/2024 9:56 AM EST) Pathologist [facility] Neisseria gonorrhoeae PCR Negative Negative LAB MOLECULAR [...] Final Result [facility] [address] [place] [address], * Cervical Cancer Screening: HPV (05/12/2020) [facility] Cervical Cancer Screening: HPV Negative, Abstracted Historical Provider HEALTH MAINTENANCE Final Result from Last 3 Months or Most Recently Relevant to Health Maintenance Insurance [facility] [employer] [facility] Care Teams Auditing Control Clerk Relationship Specialty Start Date End Date Clara Vail MD [address] [place] [address] PCP - General Internal Medicine 09/11/17
== END 2024-08-27 09:40 | disposition home or self-care (01) ==
LOC: HO.HMCC 09:09
PROVIDERS: PCP Internal Medicine; Visit Provider Internal Medicine
DX: D51.8 Other vitamin B12 deficiency anemias (principal)

== ENCOUNTER → 2024-08-27 09:08 | Outpatient (BNVA) | payer OTHER, SELFPAY | PROVIDERS: PCP Internal Medicine; Visit Provider Internal Medicine | DX: D51.8 Other vitamin B12 deficiency anemias (principal) | CPT/HCPCS: 96372; J3420 ==

== ENCOUNTER 2024-09-16 10:11 | Outpatient (REF) | payer OTHER, SELFPAY ==
--- NOTE | ~2024-09-16 | XR_ITS ---
EXAMINATION: XR CERVICAL SPINE CLINICAL INFORMATION: M54.2 - Cervicalgia COMPARISON: January 17, 2021. TECHNIQUE: 3 views of the cervical spine were obtained. FINDINGS: Small marginal osteophyte formation C5-6 and C5-6 level. Decreased intervertebral disc height C5-6 with the endplate sclerosis. No gross malalignment. Mild reverse curvature apex at C5-6. Small marginal osteophyte formation anterior inferior C3 vertebra. No lytic or blastic lesion. Upper airway is patent. XR/XR cervical spine 2V IMPRESSION: Cervical spondylosis C5-6 and to a lesser extent C6-7 and C3-4. Electronically signed by: Pete Melendrez MD 09/16/2024 12:10 PM EDT
== END 2024-09-16 10:12 | disposition home or self-care (01) ==
LOC: HO.HMGCX 10:11
PROVIDERS: PCP Internal Medicine; Visit Provider Nurse Practitioner Family
DX: M54.2 Cervicalgia (principal)
CPT/HCPCS: 72040; 99212

== ENCOUNTER 2024-09-16 10:11 | Outpatient (AMB) | payer OTHER, SELFPAY ==
--- OUTSIDE RECORDS SUMMARY | 2024-09-16 10:55 | XMS_ITS | Clinical Summary ---
Author Organization [facility] Address [address] [place] [phone] Phone Care Team Providers Care University Tutor Name Role Phone Unavailable Primary Care Provider [...]
--- NOTE | 2024-09-16 11:02 | AM.OFFWIN_ITS ---
Intake Vital Signs 3 09/16/24 11:07 Weight 173 lb 4 oz BP 116/80 Blood Pressure Location Rt brachial Position Sitting Pulse 71 Pulse Source Pulse Oximeter Pulse Oximetry (%) 97 Oxygen Delivery Method Room Air Intake Visit Reasons: PE stiff neck/pain for over a month Intake Note: Patient here for neck pain, lump on top of spine and headache at the back of head that has been present for about 1 month. Patient Tobacco Use Status: Never used Tobacco Allergies Seasonal Allergies Allergy (Intermediate, Verified 09/16/24 11:10) rhinorrhea Do you need a note to return to daycare/school/sports/work: No HPI HPI Comments 2 History of Present Illness0 Details 34 y/o Female patient who presents to [facility] in clinic with c/o Neck pain with stiffness for 1 month now. Denies injury or trauma. Denies numbness or tingling to the fingers or hands. Prior Neck Xray 2020 showed: Degenerative disc changes C5-C6 with associated anterior and posterior vertebral body spurring. [facility]LY [facility] Medical History SOB (shortness of breath) Annual visit for general adult medical examination with abnormal findings History of COVID-19 Migraine Allergic rhinitis due to allergen Environmental allergies Vitamin B12 deficiency (dietary) anemia Iron deficiency anemia Vitamin D deficiency Surgical History History of bunionectomy of right great toe Family History Paternal Grandmother Diabetes mellitus Social History Household Members: Family and None Housing: Apartment Alcohol intake: never Patient Tobacco Use Status: Never used Tobacco e-Cigarette/Vaping Use: Never Used Second Hand Smoke Exposure: No service: No Current occupational status: employed Gender identity: Female Cognitive needs: No Hearing needs: No Vision needs: No Review of Systems Const All systems reviewed & are unremarkable except as noted in HPI and below Physical Exam Vital Signs: Last Vital Signs Pulse 71 09/16/24 11:07 BP 116/80 09/16/24 11:07 Pulse Ox 97 09/16/24 11:07 Oxygen Delivery Method Room Air 09/16/24 11:07 Back/Spine/Pelvis Cervical Spine: cervical muscular tenderness, pain with cervical ROM and cervical spasm Back/spine/pelvis image: 2 1. TTP, no lesions, rashes or deformity. Assessment & Plan Assessment & Plan (1) Neck pain: Code(s): M54.2 - Cervicalgia Plan: Ordered Xray of Neck Ordered NSAIDs, Prednisone and Flexeril. Rest neck Orders: Orders 2 XR cervical spine 3V Today M54.2 - Cervicalgia Medications: New 2 prednisone 20 mg PO DAILY 7 days 7 tabs 0RF M54.2 - Cervicalgia Refilled 2 meloxicam Take once daily for 7 days. Do not take Naproxen while taking this medication. 15 mg PO DAILY 7 days 7 tabs 0RF M54.2 - Cervicalgia cyclobenzaprine Take has needed at bedtime for rib pain. 5 mg PO BEDTIME PRN 14 tabs 0RF muscle spasm M54.2 - Cervicalgia Coding Level of Care Code Est Pt Level 4 (89188) Diagnoses Neck pain M54.2 Time Spent (min) 20
[2024-09-16 11:07] VITALS: BP 116/80; PULSE 71; O2SAT 97
== END 2024-09-16 12:25 | disposition home or self-care (01) ==
PROVIDERS: PCP Internal Medicine; Visit Provider Nurse Practitioner Family
DX: M54.2 Cervicalgia (principal)

== ENCOUNTER → 2024-09-16 11:38 | Outpatient (BNV) | payer OTHER, SELFPAY | PROVIDERS: PCP Internal Medicine; Visit Provider Radiology Diagnostic Radiology | DX: M25.78 Osteophyte, vertebrae (principal) | CPT/HCPCS: 72040 ==

== ENCOUNTER 2024-09-23 14:53 | Outpatient (REF) | payer OTHER, SELFPAY ==
[2024-09-23 15:02] LABS: MANUAL DIFF FLAG NO
[2024-09-23 15:18] LABS: Basophils Percent Auto 0.4 % (0-2); Eosinophils Absolute Auto 0.3 X10*3/uL (0.0-0.4); Eosinophils Percent Auto 3.5 % (0-4); Hematocrit 38.1 % (37.0-47.0); Hemoglobin 12.9 g/dl (12.0-16.0); Imm Gran Abs Auto 0.03 X10*3/uL (0.00-0.03); Imm Gran Pct Auto 0.4 % (0.0-0.4); Lymphocytes Absolute Auto 2.1 X10*3/uL (1.2-4.9); Lymphocytes Percent Auto 30.1 % (20-40); Mean Corpuscular HGB Conc 33.9 g/dl (31.0-35.0); Mean Corpuscular Hemoglobin 29.7 pg (27.0-33.0); Mean Corpuscular Volume 87.6 fL (80.0-98.0); Mean Platelet Volume 9.8 fL (9.4-12.3); Monocytes Absolute Auto 0.5 X10*3/uL (0.1-1.2); Monocytes Percent Auto 7.5 % (2-11); Neutrophils Absolute Auto 4.1 x10*3/uL (2.0-8.3); Neutrophils Percent Auto 58.1 % (45-73); Platelet Count 338 X10*3/uL (160-400); Red Blood Count 4.35 X10*6/uL (4.20-5.50); Red Cell Distribution Width 12.5 % (11.0-16.0); White Blood Count 7.1 X10*3/uL (4.8-10.8)
[2024-09-23 15:51] LABS: Iron 79 mcg/dL (30-160); Percent Iron Saturation 30 % (15-50); Total Iron Binding Capacity 264 mcg/dL (228-428); Unsaturated Iron Binding 185 ug/dL
[2024-09-23 16:07] LABS: Vitamin D 25-OH Total 25.9 ng/mL (>30)
[2024-09-23 16:20] LABS: Folate 12.1 ng/mL (> or = 4.0); Vitamin B12 457 pg/mL (200-900)
--- OUTSIDE RECORDS SUMMARY | 2024-09-23 16:36 | XMS_ITS | Clinical Summary ---
Author Organization [facility] Address [address] [place] [phone] Phone Care Team Providers Care Supply Chain Program Manager Name Role Phone Unavailable Primary Care Provider [...]
== END 2024-09-23 14:54 | disposition home or self-care (01) ==
LOC: HO.LAB 14:53
PROVIDERS: PCP Internal Medicine; Visit Provider Internal Medicine
DX: M54.2 Cervicalgia (principal); G25.81 Restless legs syndrome; R04.0 Epistaxis; D51.8 Other vitamin B12 deficiency anemias; D50.0 Iron deficiency anemia secondary to blood loss (chronic); E55.9 Vitamin D deficiency, unspecified
CPT/HCPCS: 36415; 82306; 82607; 82746; 83540; 85025

== ENCOUNTER 2025-04-10 08:31 | Outpatient (AMB) | payer OTHER, SELFPAY ==
--- NOTE | 2025-04-10 08:35 | AM.OFFWIN_ITS ---
Intake Vital Signs 04/10/25 08:36 Height 5 ft 2 in Weight 170 lb BMI 31.1 BP 116/60 Blood Pressure Location Lt brachial Position Sitting Pulse 68 Pulse Source Pulse Oximeter Temp 97.9 F Temp Source Oral Pulse Oximetry (%) 98 Oxygen Delivery Method Room Air Intake Visit Reasons: EP-?sinus infection Intake Note: Patient presents c/o sinus infection x2 weeks. Patient Tobacco Use Status: Never used Tobacco Patient : Yes (7 weeks) Allergies Seasonal Allergies Allergy (Intermediate, Verified 04/10/25 08:37) rhinorrhea HPI HPI Comments History of Present Illness Details History - The patient is a 35 year old female pr esenting with symptoms of a sinus infection for the past two weeks. - Her symptoms include a burning sensati on in the sinuses, congestion with clear watery discharge, and nasal obstruction. - She reports a cough that occurred abou t a week and a half ago but has since resolved. - She denies fever or wheezing. - She has not taken any pmuv-llo-fswumnz medications due to her . - She is seven weeks with an es timated due date of November 23, and this followed a recent miscarriage without an intervening menstrual period. Review of Systems - CONSTITUTIONAL: Denies fever. - HEENT: Reports a burning sensation in the sinuses, congestion with clear rhinorrhea, and nasal obstruction. - Denies ear pain but reports they occas ionally 'bother' her. - RESPIRATORY: Denies wheezing and short ness of breath. - Denies current cough but reports a janeen or cough has resolved. All systems reviewed and are unremarkable except as noted in HPI Physical Exam General: Cooperative, healthy appearing, comfortable and no acute distress Orientation/consciousness: Patient oriented x3 Limitations: No limitations Head: Normal to inspection Ears: Hearing grossly normal bilaterally, external ears normal, EAC's normal bilaterally, left TM with some fluid, no infection, right TM normal. Nose: Normal external nose present, Normal nares present and No nasal discharge present Face and sinus: Normal facial exam, maxillary sinuses tender Mouth: Normal oral and palatal mucosa present and moist mucous membranes Throat: tonsils normal, no exudates, uvula midline, posterior oropharynx erythema Eyes: Appearance normal, both eyes and all related structures Neck: Normal visual inspection, full ROM Respiratory: Clear to auscultation bilaterally. Normal respiratory effort, able to speak in complete sentences, no respiratory distress, not tachypneic, no tripod positioning and no use of accessory muscles Cardiovascular: Regular rate and rhythm. Normal S1 and S2 Skin: No rashes or lesions noted Neuro: Patient oriented x3 Extremities: Normal to inspection and Yes no clubbing, cyanosis or edema [facility] Medical History (Updated 12/01/24 @ 15:09 by Pat Montoya MD) Cervical spondylosis SOB (shortness of breath) Annual visit for general adult medical examination with abnormal findings History of COVID-19 Migraine Allergic rhinitis due to allergen Environmental allergies Vitamin B12 deficiency (dietary) anemia Iron deficiency anemia Vitamin D deficiency Surgical History History of bunionectomy of right great toe Family History Paternal Grandmother Diabetes mellitus Social History Household Members: Family and None Housing: Apartment Alcohol intake: never Patient Tobacco Use Status: Never used Tobacco e-Cigarette/Vaping Use: Never Used Second Hand Smoke Exposure: No Patient : Yes (7 weeks) service: No Current occupational status: employed Gender identity: Female Cognitive needs: No Hearing needs: No Vision needs: No Physical Exam Vital Signs: Last Vital Signs Temp 97.9 F 04/10/25 08:36 Pulse 68 04/10/25 08:36 BP 116/60 04/10/25 08:36 Pulse Ox 98 04/10/25 08:36 Oxygen Delivery Method Room Air 04/10/25 08:36 BMI result Body Mass Index 31.1 Assessment & Plan Assessment & Plan (1) Acute viral sinusitis: Code(s): J01.90 - Acute sinusitis, unspecified; B97.89 - Other viral agents as the cause of diseases classified elsewhere Plan: Plan Patient was informed and verbally consented to the use of an ambient scribe for clinic note documentation during this visit. - VSS, pt well appearing and PE remarkable for maxillary sinus tenderness. - The patient's symptoms are consistent with a viral sinus infection. - Recommend starting treatment with a Neti pot twice a day, using distilled water. - Rhinocort or Flonase nasal spray, which are considered safe during , is recommended for twice-daily use after the Neti pot. - She was instructed on the proper administration technique for the nasal spray to target the sinuses and eustachian tubes. - Advised to add a saline nasal spray if nasal dryness or epistaxis occurs. - If symptoms do not improve after three to four weeks, an antibiotic may be considered, although it is preferable to avoid it during . Coding Level of Care Code Est Pt Level 3 (26999) Diagnoses Acute viral sinusitis J01.90; B97.89
[2025-04-10 08:36] VITALS: BP 116/60; PULSE 68; TEMP 36.6; O2SAT 98; BMI 31.1
--- OUTSIDE RECORDS SUMMARY | 2025-04-10 08:41 | XMS_ITS | Encounter Summary ---
Author Organization [facility] Address [address] [place] [address] Care Team Providers Care Personal Security Specialist Name Role Phone Clara Vail MD Primary Care Provider Encounter Details Date Type Department Care Team (Late Contact Info) Description 03/25/2025 Results Follow-Up Obstetrics and Gynecology - [address] [phone] Steffanie Cordoba, NATHAN [address] [place] [address] Social History Tobacco Use Types Packs/Day Years [...] on file documented as of this encounter Plan of Treatment Upcoming Encounters Date Type Department Care Team (Late Contact Info) Description 04/28/2025 9:00 AM EST Clinical Support Obstetrics and Gynecology - [address] [phone] 05/11/2025 9:45 AM EST Initial Obstetrics and Gynecology - [address] [phone] Vargas Schaffer, [facility] [address] [place] [address] 05/13/2025 9:00 AM EST Ancillary Procedure Maternal Medicine - [address] [phone] documented as of this encounter Visit Diagnoses Not on filedocumented in this encounter Care Teams Personal Security Specialist Relationship Specialty Start Date End Date Clara Vail MD [address] [facility] [place] [address] PCP - General Internal Medicine 09/11/17 documented as of this encounter
--- OUTSIDE RECORDS SUMMARY | 2025-04-10 08:41 | XMS_ITS | Encounter Summary ---
Author Organization [facility] Address [address] [place] [phone] Care Team Providers Care Designer Writer Name Role Phone Clara Vail MD Primary Care Provider Encounter Details Date Type Department Care Team (Late Contact Info) Description 02/14/2025 Results Follow-Up Obstetrics and Gynecology - [address] [phone] Steffanie Cordoba CN [address] [place] [address] Social History Tobacco Use Types Packs/Day Years Used Date Smoking Tobacco: Never Smokeless Tobacco: Never Alcohol Use Standard Drinks/Week Comments Not Currently 0 (1 standard drink = 0.6 oz pur e alcohol) Estimated Date of Delivery Comme nts Yes 11/23/2025 Sex and Gender Information Value Date Recorded Sex Assigned at Not on file Legal Sex Female 10:25 AM EST Gender Identity Not on file Sexual Orientation Not on file documented as of this encounter Plan of Treatment Upcoming Encounters Date Type Department Care Team (Late Contact Info) Description 04/28/2025 9:00 AM EST Clinical Support Obstetrics and Gynecology - [address] [phone] 05/11/2025 9:45 AM EST Initial Obstetrics and Gynecology - [address] [phone] Vargas Schaffer, NATHAN [address] [place] [address] 05/13/2025 9:00 AM EST Ancillary Procedure Maternal Medicine - [address] [address] documented as of this encounter Results * Type and screen (02/16/2025 10:36 AM EDT) ABO Group A 02/16/2025 12:[address] [facility] Rh Type Positive 02/16/2025 12:[address] [facility] Antibody Screen Negative 02/16/2025 12:[address] [facility] Blood Venous blood specimen / Unknown Venipuncture / Unknown 02/16/2025 10:36 AM EDT 02/16/2025 10:36 AM EDT [facility] BLOOD BANK TEST ORDERABLES Final Result [facility] [address] [place] [address], documented in this encounter Visit Diagnoses Diagnosis SAB (spontaneous )- Primary Unspecified spontaneous without mention of complication documented in this encounter Care Teams Designer Writer Relationship Specialty Start Date End Date Clara Vail MD [address] [place] [address] PCP - General Internal Medicine 09/11/17 documented as of this encounter
--- OUTSIDE RECORDS SUMMARY | 2025-04-10 08:41 | XMS_ITS | Clinical Summary ---
Author Organization [facility] Address [address] [place] [phone] Phone Care Team Providers Care Life Skills Coordinator Volunteer Name Role Phone Unavailable Primary Care Provider [...] of 2 - 13+ 2-dose series) 02/19/2001 HPV Vaccines (1 - 3-dose SCDM series) 02/19/2015 Influenza Vaccines (#1) 2024 COVID-19 Vaccine ( - season) 2024 HIB Vaccines Completed 08/20/1989 IPV Vaccines Completed 11/02/1992, 07/24, 1988, Additional history exists MMR Vaccines Completed 07/23/1998, 12/23, 05/19/1989 Hepatitis A Vaccines Aged Out No long [...]
--- OUTSIDE RECORDS SUMMARY | 2025-04-10 08:41 | XMS_ITS | Data Portability ---
Author Organization [place] [facility] Address [address] [place] [address] Care Team Providers Care Ply Splicer Name Role Phone PABLOAdrianALEXUS Primary Care Provider [phone] Assessment Encounter Date Assessment Date Assessment LastModified by Organization Details LastModified Time 03/24/2018 03/24/2018 .Overview/Histor y: Pt is 28 y/o F with pmhx of Asthma, Seasonal Allergies new to [facility] who we are called to evaluate for [...] for prescriptions to be called in to [facility] pharmacy for Albuterol ProAir Inhaler, Flonase and [...] instructions. Time On Scene with Patient: 00:33:49 [email or web address] Not available 03/24/2018 13:35:48 05/14/2018 05/14/2018 Overview/History [...] I have accessed patient records on the [employer]. This information was pertinent in my medical decision making today. 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 Viral illness Strep pharyngitis- likely given exam [...] today. Time On Scene with Patient: 00:17:44 [email or web address] Not available 03/23/2019 04:45:05 Plan of Treatment Reminders Order Date Submit Date Provider Last Modified By Organization Details Last Modified Time Details Appointments None recorded. Lab rapid flu (A+B) 2018 019 [email or web address] [facility] [place] [facility] [place], [address] [place] [address], [address], 9 21:41:30 Referral None recorded. Procedures None recorded. Surgeries None recorded. Imaging None recorded. Medication Orders Augmentin 875 mg-125 mg tablet 2018 019 INTERFACE [id number], [address] [place], [address], 9 17:24:47 fluconazol e 150 mg tablet 2018 019 INTERFACE [id number], [address] [place], [address], 9 17:24:47 cephalexin 500 mg capsule 2018 019 [email or web address] [facility], [address] [place], [address], 9 11:27:36 Diflucan 150 mg tablet 2018 019 INTERFACE [facility], [address] [place], [address], 9 11:29:08 Keflex 500 mg capsule 2018 019 INTERFACE [id number], [address] [place], [address], 9 11:29:08 acetaminop hen 325 mg tablet 2018 019 [email or web address] Not available 9 08:06:15 ibuprofen 200 mg tablet 2018 019 [email or web address] Not available 9 08:06:15 Motrin IB 200 mg tablet 2018 019 INTERFACE [facility], [address] [place], [address], 9 21:45:34 prednisone 10 mg tablet 2017 018 [facility], [address] [place], [address], 9 21:24:15 albuterol sulfate concentrat e 2.5 mg/0.5 mL solution for nebulizati on 2017 018 [email or web address] [facility], [address] [place], [address], 8 10:44:46 Patient TargetsNo targets recorded. Patient Instructions Encounter Date Encounter Id Patient Instructions Last Modified By Organization Details Last Modified Time 03/24/2018 [id number] --You were seen today for cough, ST, [...] in your condition between 8am-10pm, please call [facility] at [phone] to help navigate your care. [email or web address] Not available 03/24/2018 10:50:27 05/14/2018 [id number] influenza (flu): care instructions Not available 05/14/2018 21:39:07 07/21/2018 [id number] strep throat: ca re instructions Not available 07/21/2018 11:30:18 03/22/2019 [id number] Thank you for yo ur visit with [facility] today. We cannot always find the exact [...] condition between 8am-10pm, please call [facility] at [phone] to help navigate your care. [email or web address] Not available 03/22/2019 17:25:05 Reason for Referral None Reported. Results Created Date Observation Date Name Description Value Unit Range Abnormal Flag Note LastModifiedBy Organization Detail LastModifiedTime 05/14/1905/14/2018 rapid flu (A+B) Flu A positi ve Not Available [facility] [place] [facility] [address] [place], [address], 05/14/2018 21:34:38 05/14/1905/14/2018 rapid flu (A+B) Flu B negati ve Not Available [facility] - [facility] [address] [place], [address], 05/14/2018 21:34:38 Result Notes None recorded. Procedures Surgical History Date Name Laterality Status Provider Name and Address Organization Details Recorded Time 8 Nebulizer treatment - DH completed SHAN BRANNON [address] [place], [address], [place] [facility] 03/24/2018 10:59:58 Imaging Results [...] Not Available Not Available Vitals Date Recorded Heart rate Body temperature Respiratory rate Oxygen saturation Systolic And Diastolic Provider Name and Address Organization Details Last Updated DateTime 9 100 /min 100.6 [degF] 16 /min 99 % 110/66 mm[Hg] Not Available [facility] 9 21:26:05 Date Recorded Body temperature Oxygen saturation Heart rate Respiratory rate Systolic And Diastolic Provider Name and Address Organization Details Last Updated DateTime 9 98.6 [degF] 99 % 75 /min 15 /min 112/60 mm[Hg] Not Available [facility] 9 11:24:19 Date Recorded Oxygen saturation Heart rate Body temperature Respiratory rate Systolic And Diastolic Provider Name and Address Organization Details Last Updated DateTime 9 100 % 68 /min 99.7 [degF] 18 /min 124/64 mm[Hg] Not Available [facility] 9 17:14:25 Date Recorded Body temperature Heart rate Oxygen saturation Respiratory rate Systolic And Diastolic Provider Name and Address Organization Details Last Updated DateTime 8 99.2 [degF] 80 /min 99 % 16 /min 120/90 mm[Hg] Not Available [facility] 8 10:18:12 Social History Question Answer Notes LastModified by Organizat ion Details LastModified Time Tobacco Smoking Status [place], [address], [place] [facility] 03/24/2018 10:01:29 What Was [...] Diagnosis SNOMED-CT Code Diagnosis ICD10 Code Diagnosis IMO Codes Diagnosis Note [id number] SHAN BRANNON [facility] [address] [place] [address] 03/24/2018 09:37:53 03/26/2018 10:35:15 Exacerbation of intermittent asthma 341925550 J45.21 I have called in a prescripti on to your pharmacy for an Albuterol Inhaler. Please take 1-2 puffs every 4-6 hours as needed for cough, wheezing, chest tightness Dry cough 98155336 R05 Wheezing 77898888 R06.2 I have given you an albuterol nebulizer treatment today. This helps open up your airways and relax the muscles of the airways to help you breathe better. A side effect of this medication can be feeling jittery, elevated heart rate. This will resolve with time after completing the treatment. Viral sinusitis [id number] 9 B34.9 I have called in a prescripti on for Flonase to your pharmacy. This will help with your nasal congestion . 1 spray in each nostril twice daily while sick. Viral uppe r respiratory tract infection 020050376 J06.9 15146 TEDDY KENDALL NP [facility] [address] [place] [address] 05/14/2018 21:19:34 05/18/2018 17:45:03 Cough 86829658 R05 Influenza caused by Influenza A virus 817971566 J09.X2 74651 TEDDY KENDALL NP [facility] [address] [place] [address] 07/21/2018 11:19:51 07/23/2018 16:32:34 Acute pharyngitis 315803125 J02.9 [id number] SHAN RAMON [facility] [address] [place] [address] 03/22/2019 17:13:02 03/25/2019 12:13:34 Sinusitis 02873784 J32.9 Otitis media 18587975 H6 6.92 Health Concerns Section Related Observation LastModified by Organization Detai ls LastModified Time None Recorded Concern Status LastModified by Organization Details LastModified Time None Recorded Advance Directives Directive None Recorded Payers Insurance Date Sequence Insurance Name Policy Number Policy Fajardo Covered Member ID Fajardo Member ID Guarantor Name 05/22/2019 1 *SELF PAY* Марина Reed [id number] Марина Reed 05/22/2019 2 [facility] MARLENA Mendietaillo [id number] Марина Mendietaillo 05/22/2019 1 *SELF PAY* Марина Reed [id number] Марина Reed 05/22/2019 1 [place] [facility] Марина Reed [id number] Марина Mendietaillo 05/22/2019 1 [facility] (O) MARLENA Reed [id number] Марина Reed 08/27/2024 1 UNSPECIFIED REMIT PAYOR Марина Reed Notes Date Note Type Note Provider Name and Address Organization Details Recorded Time 03/24/2018 text/html Pt is 28 y/o F with pmhx of Asthma, Seasonal Allergies new to [facility] who we are called to evaluate for [...] chills, malaise, VILLALBA, dizziness, CP, n[place], [address], [place] [facility] 03/24/2018 13:35:57 05/14/2018 text/html 28-year-old female who was noted this [facility] was evaluated with complaints of a cough, sinus congestion and myalgias, starting 4 days ago. The patient stated that I feel like I am dying . 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 She denies any neck pain, shortness of breath, chest pain, abdominal pain, dysuria, hematuria, vomiting, diarrhea or any rashes. TEDDY KENDALL NP [address], [place], [address], [place] [facility] 05/14/2018 22:44:24 07/21/2018 text/html 28-year-old female, [...] cervical lymph nodes. TEDDY KENDALL NP [address], [place], [address], [place] [facility] 07/21/2018 11:51:01 03/22/2019 text/html Mrs. Reed [...] much relief. SHAN RAMON [address], [place], [address], [place] [facility] 03/23/2019 04:45:11 OBGyn Episode No OBEpisode recorded.
--- OUTSIDE RECORDS SUMMARY | 2025-04-10 08:41 | XMS_ITS | Clinical Summary ---
Author Organization [facility] [address] [place] [place] [address] [place] [phone] Phone Care Team Providers Care Flight Operations Dispatch Clerk Name Role Phone Clara Vail MD Primary Care Provider Allergies Active Allergy Reactions Criticality Noted Date Comments Cat Dander 01/29/2018 Medications mometasone (ELOCON) 0.1 % ointment Apply half a fingertip amount to the vulva nightly x4 weeks then twice weekly thereafter 4 Active multivitamin with iron (DAILY MULTIPLE VITAMINS/IRON ORAL) Take by mouth. Activ e ketoconazole (NIZORAL) 2 % cream Active montelukast (SINGULAIR) 10 mg tablet Active valACYclovir (VALTREX) 1 gram tablet Active vit no.351-ldud-ozz ic ( Plus Vitamin-Mineral ) 27 mg iron- 1 mg tabletIndicatio ns:Missed menses Take 1 tablet by mouth 1 (one) time each day. 90 tablet 3 5 Active Encounters Date Type Department Care Team Description 04/01/2025 11:30 AM EST Office Visit Maternal Medicine - [address] [phone] Marisabel Aguirre MD Less than 8 weeks gestation of (Primary Dx); Advanced maternal age in multigravida, first trimester; Obesity affecting in first trimester, unspecified obesity type 04/01/2025 11:00 AM EST Ancillary Procedure Maternal Medicine - [address] [phone] Irregular periods; with uncertain viability, single or unspecified fetus; History of multiple miscarriages 03/25/2025 Results Follow-Up Obstetrics and Gynecology - [address] [phone] Steffanie Cordoba CNM 03/24/2025 9:10 AM EST Lab Draw Station - [address] Irregular periods 03/24/2025 Telephone Obstetrics and Gynecology - [address] [phone] Savana Saez, ARMANDO 02/18/2025 Results Follow-Up Obstetrics and [facility] - [address] [phone] Steffanie Cordoba CNM 02/16/2025 10:00 AM EDT Office Visit Obstetrics and Gynecology - [address] [phone] Radha Tirado CNM Miscarriage (Primary Dx); History of recurrent miscarriages 02/14/2025 Results Follow-Up Obstetrics and [facility] - [address] [phone] Steffanie Cordoba CNM 02/13/2025 Telephone Obstetrics and [facility] - [address] [phone] Martha Mcneil RN 02/11/2025 Results Follow-Up Obstetrics and [facility] - [address] [phone] Steffanie Cordoba CNM 02/11/2025 Telephone Obstetrics and Gynecology - [address] [phone] Pushpa Maguire CNM 02/10/2025 11:00 AM EDT Clinical Support Obstetrics and Gynecology - [address] [phone] Missed menses (Primary Dx) 02/10/2025 Telephone Obstetrics and Gynecology - [address] [phone] Martha Mcneil, ARMANDO from Last 3 Months Immunizations Immunization Administration Dates Next Due DTP [...] Surgery Date Site/Laterality Comments FOOT SURGERY PROCEDURE: [place] UNLISTED PROCEDURE FOOT/TOES Medical History Medical History [...] Sexual Orientation Not on file Obstetrics History * This document contains information received from the source organization and may not represent a complete record from that organization. Para Term AB IAB SAB Ectopic Multiple Livin g Live Births 7 3 3 0 0 0 3 3 Date Outcome GA Total Labor Labor/2nd/3rd Weight Sex Type Anes PTL Michelle A1 A5 Name Clin 2008 2008 Term 40w 5d 2863 g (101 oz) F Vag-S pont Epidur al N Livin g [address] Sheehan Complications: aspir ation syndrome Delivery Location:[facility] 2013 Term 37w 4d 2892 g (102 oz) M Vag-S pont Epidur al N Livin g Dr Stone Complications:None Delivery Location:[facility] 2014 2015 Term 37w 2d 2920 g (103 oz) M Vag-S pont Epidur al N Livin g Dr Stone Complications:Herpes simplex type 2 infection Delivery Location:[facility] 2024 Current Last Filed Vital Signs Vital Sign Reading Time Taken Comments Blood Pressure 91/64 02/16/2025 10:01 AM EDT Pulse 63 02/16/2025 10:01 AM EDT Temperature - - Respiratory Rate 12 02/16/2025 10:01 AM EDT Oxygen Saturation - - Inhaled Oxygen Concentration - - Weight 78.2 kg (172 lb 6.4 oz) 02/16/2025 10:01 AM EDT Height 155 cm (5' 1.02 ) 02/16/2025 10:01 AM EDT Body Mass Index 32.55 02/16/2025 10:01 AM EDT Plan of Treatment Upcoming Encounters Date Type Department Care Team (Late st Contact Info) Description 04/28/2025 9:00 AM EST Clinical Support Obstetrics and Gynecology - [address] [phone] 05/11/2025 9:45 AM EST Initial Obstetrics and Gynecology - [address] [phone] Vargas Schaffer, CNM [address] [place] [address] 05/13/2025 9:00 AM EST Ancillary Procedure Maternal Medicine - [address] [phone] Health Maintenance Due Date Last Done Comments Hepatitis B Vaccines (3 of 3 - 3-dose series) 03/08/2000 01/12/2000, 07/23/1998 HPV Vaccines (1 - 3-dose SCDM series) 02/19/2015 Cholesterol Screening (Lipid Panel) 03/21/2022 Social Influencers of Health Screening 03/21/2022 Depression Screening 04/23/2024 COVID-19 Vaccine ( season) 2024 05/19/2022, 05/02/2021, 09/01/2020, Additional history exists Influenza Vaccine (#1) 2024 , 12/31/2020, 02/12/2014, Additional history exists Cervical Cancer Screening: HPV 05/12/2025 05/12/2020 DTaP,Tdap,and Td Vaccines (9 - Td or Tdap) 06/21/2025 06/22/2015, 09/07/2011, 01/12/2000, Additional history exists HIB Vaccines Completed 08/20/1989 IPV Vaccines Completed 11/02/1992, 07/24, 1988, Additional history exists HIV Screening Completed 06/17/2024 Hepatitis C Screening Completed 06/17/2024 Hepatitis A Vaccines Aged Out No long er eligible based on patient's age to complete this topic Meningococcal ACWY Vaccine Aged Out N o longer eligible based on patient's age to complete this topic Meningococcal B Vaccine Aged Out No l onger eligible based on patient's age to complete this topic Pneumococcal Vaccine: Pediatrics (0 to 5 Years) and At-Risk Patients (6 to 49 Years) Aged Out No longer eligible based on patient's age to complete this topic RSV Immunization Adult Patients (No Doses Required) Completed RSV Immunization Patients Under 20 months Aged Out No longer eligible based on patient's age to complete this topic Procedures Procedure Name Priority Date/Time Associated Diagnosis Comments US OB TRANSVAGINAL Routine 04/01/2025 11 :37 AM EST Irregular periods with uncertain viability, single or unspecified fetus History of multiple miscarriages US OB LESS 14 WKS SINGLE OR FIRST GESTATION Routine 04/01/2025 11:37 AM EST Irregular periods HCG, QUANTITATIVE Routine 03/24/2025 9:2 6 AM EST Irregular periods HCG, QUANTITATIVE Routine 02/16/2025 10: 36 AM EDT Missed menses TYPE AND SCREEN Routine 02/16/2025 10:36 AM EDT SAB (spontaneous ) HCG, QUANTITATIVE Routine 02/12/2025 11: 53 AM EDT Missed menses HCG, QUANTITATIVE Routine 02/10/2025 11: 44 AM EDT Missed menses POC , URINE DIAGNOSTIC Routine 02/10/2025 11:34 AM EDT Missed menses HEPATITIS C ANTIBODY Routine 06/17/2024 11:12 AM EST Screen for STD (sexually transmitted disease) HIV 1, 2 ANTIBODY, P24 ANTIGEN WITH REFLEX TO DIFFERENTIATION Routine 06/17/2024 11:12 AM EST Screen for STD (sexually transmitted disease) HM HPV Routine 05/12/2020 from Last 3 Months or Most Recently Relevant to Health Maintenance Results * US OB Transvaginal (04/01/2025 11:37 AM EST) Anatomical Region Laterality Modality Body Ultrasound 04/01/2025 10:4 8 AM EST Narrative 04/01/2025 12:30 PM EST OBSTETRICS REPORT (Corrected Final 04/01/2025 12:30 pm) PATIENT INFO: ID #: [id number] : [birth year] (35 yrs)(F) Name: TERRIE REED Visit Date: 04/01/2025 10:48 am PERFORMED BY: Attending: Marisabel Aguirre MD Performed By: Guru Costa RDMS Referred By: Steffanie Cordoba CNM Ref. Address: [address] [place] [address] Location: [facility]) SERVICE(S) PROVIDED: US < 14 weeks Abdominal Ultrasound 52920 OB Transvaginal ultrasound 74479 INDICATIONS: Advanced Maternal Age in multigravida, first O09.521 trimester Less than 8 weeks gestation of Z3A.01 Irregular menstruation, unspecified N92.6 TECHNIQUE/SCAN QUALITY: Technique: Transabdominal & Transvaginal Scan Satisfactory Quality: OB HISTORY: : 7 Term: 3 SAB: 3 Livin VITAL SIGNS: Weight (lb) Height BMI 172 5'1 32.5 EVALUATION: Number Of Fetuses: 1 Preg. Location: Intrauterine Yolk Sac: 4.8 Gestational Sac: Seen Pole: Visualized Heart Rate(bpm): 123 Cardiac Activity: Observed BIOMETRY: CRL: 5.19 mm G.Age: 6w 2d BLADE: 11/23/25 GESTATIONAL AGE: Best: 6w 2d Det. By: U/S Azam Elliott BLADE: 11/23/25 (04/01/25) CERVIX UTERUS ADNEXA: Uterus Size(cm) 7.65 x 5.71 x 5.33 Uterus Vol(ml): 121.91 Myometrium homogeneous, no lesions identified. Right Ovary Size(cm) 2.32 x 1.31 x 1.19 Vol(ml): 1.89 Normal in size and appearance. It is found between the uterus and the pelvic sidewall. Left Ovary Size(cm) 2.52 x 2.27 x 1.99 Vol(ml): 5.96 Normal in size and appearance. It is found between the uterus and the pelvic sidewall. COMMENTS: Ms. Reed is being seen for uncertain dates. - Her medical history is significant for anemia, anxiety, HSV2, and migraines. She reports that migraines are now in remission without medications after making dietary changes. - Her obstetrical history is significant for three miscarriages (with term pregnancies in between) and three term vaginal deliveries. All three pregnancies were uncomplicated and all three children are healthy now. - Her surgical history is significant for a D&C for one of the miscarriages, as well as foot surgery for bunions. - Ultrasound findings: A viable intrauterine was seen. The dates are assigned by today's ultrasound; the BLADE is 11/23/25. - Counseling: We discussed the changes to care and delivery planning now that the [facility] is closed. Delivery will be at [facility]. care consists of the [facility] midwives, supervised by Maternal- Medicine physicians. - The patient's history was reviewed today both through patient interview and chart review; the history is as listed above. - Plan: She has been scheduled to return in 6 weeks for first trimester screening. Marisabel Aguirre MD Electronically Signed Corrected Final Report 04/01/2025 12:30 pm Procedure Note Marisabel Aguirre MD - 04/01/2025 OBSTETRICS REPORT (Corrected Final 04/01/2025 12:30 pm) PATIENT INFO: ID #: [id number] : [birth year] (35 yrs)(F) Name: TERRIE REED Visit Date: 04/01/2025 10:48 am PERFORMED BY: Attending: Marisabel Aguirre MD Performed By: Guru Costa RDMS Referred By: Steffanie EVANS Ref. Address: [address] [place] [address] Location: [facility]) SERVICE(S) PROVIDED: US < 14 weeks Abdominal Ultrasound 73570 OB Transvaginal ultrasound 62549 INDICATIONS: Advanced Maternal Age in multigravida, first O09.521 trimester Less than 8 weeks gestation of Z3A.01 Irregular menstruation, unspecified N92.6 TECHNIQUE/SCAN QUALITY: Technique: Transabdominal & Transvaginal Scan Satisfactory Quality: OB HISTORY: : 7 Term: 3 SAB: 3 Livin VITAL SIGNS: Weight (lb) Height BMI 172 5'1 32.5 EVALUATION: Number Of Fetuses: 1 Preg. Location: Intrauterine Yolk Sac: 4.8 Gestational Sac: Seen Pole: Visualized Heart Rate(bpm): 123 Cardiac Activity: Observed BIOMETRY: CRL: 5.19 mm G.Age: 6w 2d BLADE: 11/23/25 GESTATIONAL AGE: Best: 6w 2d Det. By: Joey/Adrian Elliott BLADE: 11/23/25 (04/01/25) CERVIX UTERUS ADNEXA: Uterus Size(cm) 7.65 x 5.71 x 5.33 Uterus Vol(ml): 121.91 Myometrium homogeneous, no lesions identified. Right Ovary Size(cm) 2.32 x 1.31 x 1.19 Vol(ml): 1.89 Normal in size and appearance. It is found between the uterus and the pelvic sidewall. Left Ovary Size(cm) 2.52 x 2.27 x 1.99 Vol(ml): 5.96 Normal in size and appearance. It is found between the uterus and the pelvic sidewall. COMMENTS: Ms. Reed is being seen for uncertain dates. - Her medical history is significant for anemia, anxiety, HSV2, and migraines. She reports that migraines are now in remission without medications after making dietary changes. - Her obstetrical history is significant for three miscarriages (with term pregnancies in between) and three term vaginal deliveries. All three pregnancies were uncomplicated and all three children are healthy now. - Her surgical history is significant for a D&C for one of the miscarriages, as well as foot surgery for bunions. - Ultrasound findings: A viable intrauterine was seen. The dates are assigned by today's ultrasound; the BLADE is 11/23/25. - Counseling: We discussed the changes to care and delivery planning now that the [facility] is closed. Delivery will be at [facility]. care consists of the [facility] midwives, supervised by Maternal- Medicine physicians. - The patient's history was reviewed today both through patient interview and chart review; the history is as listed above. - Plan: She has been scheduled to return in 6 weeks for first trimester screening. Marisabel Aguirre MD Electronically Signed Corrected Final Report 04/01/2025 12:30 pm us Steffanie Cordoba CNM IMG OB US PROCEDURES Edited Re sult - Final * US OB Less 14 Wks Single or First Gestation (04/01/2025 11:37 AM EST) Anatomical Region Laterality Modality Body Ultrasound 04/01/2025 10:4 8 AM EST Narrative 04/01/2025 12:09 PM EST OBSTETRICS REPORT (Corrected Final 04/01/2025 12:30 pm) PATIENT INFO: ID #: [id number] : [birth year] (35 yrs)(F) Name: TERRIE REED Visit Date: 04/01/2025 10:48 am PERFORMED BY: Attending: Marisabel Aguirre MD Performed By: Guru Costa RDMS Referred By: Steffanie EVANS Ref. Address: [address] [place] [address] Location: [facility] ([facility]) SERVICE(S) PROVIDED: US < 14 weeks Abdominal Ultrasound 84950 OB Transvaginal ultrasound 43809 INDICATIONS: Advanced Maternal Age in multigravida, first O09.521 trimester Less than 8 weeks gestation of Z3A.01 Irregular menstruation, unspecified N92.6 TECHNIQUE/SCAN QUALITY: Technique: Transabdominal & Transvaginal Scan Satisfactory Quality: OB HISTORY: : 7 Term: 3 SAB: 3 Livin VITAL SIGNS: Weight (lb) Height BMI 172 5'1 32.5 EVALUATION: Number Of Fetuses: 1 Preg. Location: Intrauterine Yolk Sac: 4.8 Gestational Sac: Seen Pole: Visualized Heart Rate(bpm): 123 Cardiac Activity: Observed BIOMETRY: CRL: 5.19 mm G.Age: 6w 2d BLADE: 11/23/25 GESTATIONAL AGE: Best: 6w 2d Det. By: Víctor Elliott BLADE: 11/23/25 (04/01/25) CERVIX UTERUS ADNEXA: Uterus Size(cm) 7.65 x 5.71 x 5.33 Uterus Vol(ml): 121.91 Myometrium homogeneous, no lesions identified. Right Ovary Size(cm) 2.32 x 1.31 x 1.19 Vol(ml): 1.89 Normal in size and appearance. It is found between the uterus and the pelvic sidewall. Left Ovary Size(cm) 2.52 x 2.27 x 1.99 Vol(ml): 5.96 Normal in size and appearance. It is found between the uterus and the pelvic sidewall. COMMENTS: Ms. Reed is being seen for uncertain dates. - Her medical history is significant for anemia, anxiety, HSV2, and migraines. She reports that migraines are now in remission without medications after making dietary changes. - Her obstetrical history is significant for three miscarriages (with term pregnancies in between) and three term vaginal deliveries. All three pregnancies were uncomplicated and all three children are healthy now. - Her surgical history is significant for a D&C for one of the miscarriages, as well as foot surgery for bunions. - Ultrasound findings: A viable intrauterine was seen. The dates are assigned by today's ultrasound; the BLADE is 11/23/25. - Counseling: We discussed the changes to care and delivery planning now that the [facility] is closed. Delivery will be at [facility]. care consists of the [facility] midwives, supervised by Maternal- Medicine physicians. - The patient's history was reviewed today both through patient interview and chart review; the history is as listed above. - Plan: She has been scheduled to return in 6 weeks for first trimester screening. Marisabel Aguirre MD Electronically Signed Corrected Final Report 04/01/2025 12:30 pm Procedure Note Marisabel Aguirre MD - 04/01/2025 OBSTETRICS REPORT (Corrected Final 04/01/2025 12:30 pm) PATIENT INFO: ID #: [id number] : [birth year] (35 yrs)(F) Name: TERRIE REED Visit Date: 04/01/2025 10:48 am PERFORMED BY: Attending: Marisabel Aguirre MD Performed By: Guru Costa [facility] Referred By: Steffanie Cordoba [facility] Ref. Address: [address] [place] [address] Location: [facility] ([facility]) SERVICE(S) PROVIDED: US < 14 weeks Abdominal Ultrasound 96414 OB Transvaginal ultrasound 51596 INDICATIONS: Advanced Maternal Age in multigravida, first O09.521 trimester Less than 8 weeks gestation of Z3A.01 Irregular menstruation, unspecified N92.6 TECHNIQUE/SCAN QUALITY: Technique: Transabdominal & Transvaginal Scan Satisfactory Quality: OB HISTORY: : 7 Term: 3 SAB: 3 Livin VITAL SIGNS: Weight (lb) Height BMI 172 5'1 32.5 EVALUATION: Number Of Fetuses: 1 Preg. Location: Intrauterine Yolk Sac: 4.8 Gestational Sac: Seen Pole: Visualized Heart Rate(bpm): 123 Cardiac Activity: Observed BIOMETRY: CRL: 5.19 mm G.Age: 6w 2d BLADE: 11/23/25 GESTATIONAL AGE: Best: 6w 2d Det. By: U/S C R L BLADE: 11/23/25 (04/01/25) CERVIX UTERUS ADNEXA: Uterus Size(cm) 7.65 x 5.71 x 5.33 Uterus Vol(ml): 121.91 Myometrium homogeneous, no lesions identified. Right Ovary Size(cm) 2.32 x 1.31 x 1.19 Vol(ml): 1.89 Normal in size and appearance. It is found between the uterus and the pelvic sidewall. Left Ovary Size(cm) 2.52 x 2.27 x 1.99 Vol(ml): 5.96 Normal in size and appearance. It is found between the uterus and the pelvic sidewall. COMMENTS: Ms. Reed is being seen for uncertain dates. - Her medical history is significant for anemia, anxiety, HSV2, and migraines. She reports that migraines are now in remission without medications after making dietary changes. - Her obstetrical history is significant for three miscarriages (with term pregnancies in between) and three term vaginal deliveries. All three pregnancies were uncomplicated and all three children are healthy now. - Her surgical history is significant for a D&C for one of the miscarriages, as well as foot surgery for bunions. - Ultrasound findings: A viable intrauterine was seen. The dates are assigned by today's ultrasound; the BLADE is 11/23/25. - Counseling: We discussed the changes to care and delivery planning now that the [facility] closed. Delivery will be at [facility]. care consists of the [facility] midwives, supervised by Maternal- Medicine physicians. - The patient's history was reviewed today both through patient interview and chart review; the history is as listed above. - Plan: She has been scheduled to return in 6 weeks for first trimester screening. Marisabel Aguirre MD Electronically Signed Corrected Final Report 04/01/2025 12:30 pm Result [facility] Steffanie Cordoba [facility] IM OB US PROCEDURES Edited Re sult - Final * HCG, quantitative (03/24/2025 9:26 AM EST) Only the most recent of4 resultswithin the time period is included. hCG Quant 13,450 mIU/mL 03/24/2025 12:55 PM EST [facility] Blood Venous blood specimen / Unknown Venipuncture / Unknown 03/24/2025 9:26 AM EST 03/24/2025 9:26 AM EST Narrative [facility] - 03/24/2025 12:55 PM EST Quantitative HCG Reference Ranges Time after Conception MIU/ML 0.2-1 Week 5-50 1-2 Weeks 50-500 2-3 Weeks 100-5,000 3-4 Weeks 500-10,000 4-5 Weeks 1,000-50,000 5-6 Weeks 10,000-100,000 6-8 Weeks 15,000-200,000 2-3 Months 10,000-100,000 2nd Trimester 1,000-94,000 3rd Trimester 2,500-90,000 Non- Females 1-3 Steffanie Cordoba [facility] BLOOD ORDERABLES Final Res ult Performing Organization Address City/[facility]/ZIP Co de Phone Number [facility] [address] [place] [address], [place] [phone] * Type and screen (02/16/2025 10:36 AM EDT) Pathologist [facility] ABO Group A 02/16/2025 12:53 PM EDT [facility] Rh Type Positive 02/16/2025 12:53 PM EDT [facility] Antibody Screen Negative 02/16/2025 12:53 PM EDT [facility] Blood Venous blood specimen / Unknown Venipuncture / Unknown 02/16/2025 10:36 AM EDT 02/16/2025 10:36 AM EDT Steffanie Cordoba [facility] BLOOD BANK TEST ORDERABLES Final Result [facility] [address] [place] [address], [place] [phone] * (ABNORMAL) POC , urine manually resulted (02/10/2025 11:34 AM EDT) HCG, Ur POC Positive(A ) Negative POC hCG Int QC Pass? Yes Yes Urine Urine specimen obtained by clean catch procedure / Unknown 02/10/2025 11:34 AM EDT us Valiente Earl Cordoba CN POINT OF CARE TEST ENTER/EDIT ORDERABLES Final Result * Hepatitis C antibody (06/17/2024 11:12 AM EST) [facility] Hepatitis C Antibody Negative Negative LAB CHEMISTRY METHOD 06/17/2024 4:07 PM EST [facility] Blood Venous blood specimen / Unknown Venipuncture / Unknown 06/17/2024 11:12 AM EST 06/17/2024 11:12 AM EST us Jackie TORREZ LAB BLOOD ORDERABLES Final R esult Performing Organization Address [facility] Co de Phone Number [facility] [address] [place] [address], [place] [phone] * HIV 1,2 antibody, p24 antigen with reflex to differentiation (06/17/2024 11:12 AM EST) [facility] HIV Combo AB/AG Negative Negative LAB [...] 1 (including group O) and type 2. Use of a 4th generation assay is the current CDC recommendation for HIV screening. us Jackie TORREZ LAB BLOOD ORDERABLES Final R esult Performing Organization Address [facility]/ZIP Co de Phone Number [facility] [address] [place] [address], [place] [phone] * Cervical Cancer Screening: HPV (05/12/2020) [facility] Cervical Cancer Screening: HPV Negative, Abstracted us Historical Provider HEALTH MAINTENANCE Final Result from Last 3 Months or Most Recently Relevant to Health Maintenance Insurance [facility] [employer] Care Teams Flight Operations Dispatch Clerk Relationship Specialty Start Date End Date Clara Vail MD [address] [place] [address] PCP - General Internal Medicine 09/11/17
--- OUTSIDE RECORDS SUMMARY | 2025-04-10 08:41 | XMS_ITS | Encounter Summary ---
Author Organization [facility] Address [address] [place] [id number] Care Team Providers Care Senior Ui U[employer] Developer Name Role Phone Clara Vail MD Primary Care Provider Encounter Details Date Type Department Care Team (Late Contact Info) Description 02/11/2025 Results Follow-Up Obstetrics and Gynecology - [address] [phone] Steffanie Cordoba CN [address] [place] [address] Social History Tobacco Use Types Packs/Day Years [...] EST Clinical Support Obstetrics and Gynecology - [address] [phone] 05/11/2025 9:45 AM EST Initial Obstetrics and Gynecology - [address] [phone] Vargas Schaffer, NATHAN [address] [place] [address] 05/13/2025 9:00 AM EST Ancillary Procedure Maternal Medicine - [address] [place] [phone] documented as of this encounter Visit Diagnoses Not on filedocumented in this encounter Care Teams Senior Ui U[employer] Developer Relationship Specialty Start Date End Date Clara Vail MD [address] [place] [address] PCP - General Internal Medicine 09/11/17 documented as of this encounter
--- OUTSIDE RECORDS SUMMARY | 2025-04-10 08:41 | XMS_ITS | Encounter Summary ---
Author Organization [facility] Address [id number] [place] [id number] Care Team Providers Care Battery Recharger Name Role Phone Clara Vail MD Primary Care Provider Encounter Details Date Type Department Care Team (Late Contact Info) Description 02/18/2025 Results Follow-Up Obstetrics and Gynecology - [address] [phone] Steffanie Cordoba, NATHAN [address] [place] [address] Social History Tobacco Use Types Packs/Day Years [...] EST Clinical Support Obstetrics and Gynecology - [address] [phone] 05/11/2025 9:45 AM EST Initial Obstetrics and Gynecology - [address] [phone] Vargas Schaffer, [facility] [address] [place] [address] 05/13/2025 9:00 AM EST Ancillary Procedure Maternal Medicine - [address] [phone] documented as of this encounter Visit Diagnoses Not on filedocumented in this encounter Care Teams Battery Recharger Relationship Specialty Start Date End Date Clara Vail MD [address] [facility] [place] [address] PCP - General Internal Medicine 09/11/17 documented as of this encounter
== END 2025-04-10 09:10 | disposition home or self-care (01) ==
PROVIDERS: PCP Internal Medicine; Visit Provider Physician Assistant
DX: J01.90 Acute sinusitis, unspecified (principal); B97.89 Other viral agents as the cause of diseases classified elsewhere

== ENCOUNTER → 2025-04-10 08:31 | Outpatient (BNVA) | payer OTHER, SELFPAY | PROVIDERS: PCP Internal Medicine; Visit Provider Physician Assistant | DX: J01.90 Acute sinusitis, unspecified (principal); B97.89 Other viral agents as the cause of diseases classified elsewhere | CPT/HCPCS: 99212 ==